=== PATIENT | female | born 1950 | race Caucasian/White ===

== ENCOUNTER → 2016-07-29 | Outpatient (CLI) | payer OTHER | END | disposition home or self-care (01) | LOC: LABWHC1 11:08 | PROVIDERS: ATTEND Orthopaedic Surgery | DX: Z01.812 Encounter for preprocedural laboratory examination (principal) | CPT/HCPCS: 87070 ==

== ENCOUNTER 2016-08-16 08:00 | Inpatient (IN) | payer OTHER ==
[2016-08-04 09:58] VITALS: BMI 34.4
--- NOTE | 2016-08-15 15:20 | HP ---
DATE OF ADMISSION: CHIEF COMPLAINT: Right knee pain. HISTORY OF PRESENT ILLNESS: The patient is a 65-year-old retired female who presents with progressive right knee pain secondary to osteoarthrosis despite extensive conservative measures. She has tried previous injections, medications and bracing. She notes her pain limits her normal function and activities. She is using a cane. PAST MEDICAL HISTORY: Significant for arthritis, depression and hypothyroidism. CURRENT MEDICATIONS: 1. Ambien. 2. Aspirin. 3. Prevacid. 4. Synthroid. 5. Xanax. 6. Cymbalta. 7. Along with ibuprofen. 8. Flexeril. SHE NOTES ALLERGIES TO CIPROFLOXACIN. FAMILY HISTORY: Significant for cancer and liver disease. SOCIAL HISTORY: Negative for current tobacco or alcohol use. Sixteen-point review of systems otherwise reviewed and is noncontributory. On examination, the patient is approximately 5 foot 2, 180 pounds of endomorphic habitus. HEENT exam is nonfocal. Neck is supple. She has painless passive motion of the right hip. Straight leg raise is negative. Active motion of the right knee -8 to 95 degrees of flexion. She is tender about the medial joint line. She has a moderate effusion. Collaterals are stable, Brant's negative, Iliana's is equivocal. She has genu varum alignment. Her distal neurovascular exam appears be intact in the right lower extremity. Previous x-rays of the right knee obtained in the office show severe medial compartment osteoarthrosis. IMPRESSION: 1. Right knee severe medial compartment osteoarthrosis. 2. Increased body mass index. RECOMMENDATIONS: I talked to the patient at length regarding her treatment options. At this point, she opts to proceed with surgery. We will plan to proceed with right total knee arthroplasty. Risks and benefits are discussed at length in layman's terms. The patient underwent preoperative medical evaluation by Dr. Wilbert Cantor.
[~2016-08-16 08:00] MED LIST: ACETAMINOPHEN TAB 500 MG TAB PO ONE; DEXAMETHASONE SOD PHOSPHATE 10 MG/ML 1 ML VIAL IV ONE; HYDROmorphone 1 MG/ML 1 ML SYRINGE IVP PRN; MELOXICAM 7.5 MG TAB PO ONE; MIDAZOLAM 2 MG/2 ML VIAL IV PRN; ONDANSETRON 4 MG/2 ML VIAL IVP ONE; TRANEXAMIC ACID 1,000 MG in SODIUM CHLORIDE 0.9% 100 ML IVPB ONE; ceFAZolin 2 GM in SODIUM CHLORIDE 0.9% 100 ML IVPB ONE; fentaNYL (PF) 50 MCG/ML 20 ML VIAL IVP PRN
[2016-08-16] MEDS: LACTATED RINGERS 1,000 ML IV SCH (14:29)
[2016-08-16] MEDS ORDERED: LIDOCAINE 1% 20 ML VIAL (10MG/ML) FOR IV START INTRADERMA ONE (14:33)
[2016-08-16] MEDS ORDERED: fentaNYL (PF) 50 MCG/ML 2 ML AMP IV ONE ×2 (14:47→14:50)
[2016-08-16] MEDS ORDERED: MIDAZOLAM 2 MG/2 ML VIAL IVP ONE ×2 (14:47→14:50)
[2016-08-16] MEDS ORDERED: MIDAZOLAM 2 MG/2 ML VIAL ONE (15:40)
[2016-08-16] MEDS ORDERED: fentaNYL (PF) 50 MCG/ML 2 ML AMP ONE (15:40)
[2016-08-16] MEDS ORDERED: PROPOFOL 10 MG/ML 20 ML VIAL IV ONE (15:40)
[2016-08-16] MEDS ORDERED: TRANEXAMIC ACID 1,000 MG/10 ML VIAL ONE (15:40)
[2016-08-16] MEDS ORDERED: SODIUM CHLORIDE 0.9% 100 ML BAG ONE (15:40)
[2016-08-16] MEDS ORDERED: ROPIVACAINE 1,100 MG, SODIUM CHLORIDE 0.9% 330 ML MISCELLANE PRN ×2 (15:55)
--- NOTE | 2016-08-16 15:57 | P.ONQ ---
Anesthesiology Proc Note - PNB - Peripheral Nerve Block Performed Right Adductor Canal Infusion Time Out Performed: Yes Indication: Acute Post-Operative Pain, Analgesia Specifically requested for management of pain by : Mayank Cantor Sedation Type: Sedate with meaningful contact maintained Preparation: Sterile Prep Position: Supine Catheter Depth at Skin (cm): 6 Catheter: Indwelling Needle Types: On-Q Needle Size: 100mm (4") Needle Gauge: 20 Technique: Ultrasound Injectate: 0.5% Ropivacaine (see comment for volume) (20 cc) Blood Aspirated: No Pain Paresthesia on Injection Noted: No Resistance on Injection: Normal Events: Uneventful and Well Tolerated
[2016-08-16] MEDS ORDERED: ceFAZolin 3,000 MG in SODIUM CHLORIDE 0.9% IRRIGATIO 3,000 ML IRRIGATION ONE (16:18)
[2016-08-16] MEDS ORDERED: ROPIVACAINE 246.25 MG, EPINEPHrine 0.5 MG, KETOROLAC 30 MG, cloNIDine HCL/PF 80 MCG, WA... MISCELLANE ONE ×5 (16:32)
[2016-08-16] MEDS ORDERED: HYDROcodone/APAP 7.5-325MG 1 EACH TAB PO PRN ×2 (17:25)
[2016-08-16] MEDS ORDERED: HYDROmorphone 1 MG/ML 1 ML SYRINGE IVP PRN (17:25)
[2016-08-16] MEDS ORDERED: MAGNESIUM HYDROXIDE 2,400 MG/10 ML CUP PO PRN (17:25)
[2016-08-16] MEDS ORDERED: ONDANSETRON 4 MG/2 ML VIAL IVP PRN (17:25)
[2016-08-16] MEDS ORDERED: NALOXONE 0.4 MG/ML 1 ML VIAL IV PRN (17:25)
[2016-08-16] MEDS ORDERED: LACTATED RINGERS 1,000 ML IV ONE (17:48)
--- NOTE | 2016-08-16 17:59 | P.OP ---
Date of Procedure: 08/16/16 Preoperative Diagnosis: Right knee severe tricompartmental osteoarthrosis Postoperative Diagnosis: Same Procedure(s) Performed: Right total knee arthroplasty-cemented/cruciate retaining Implants: [employer] Oxinium size 5 narrow cemented femoral component, size 4 cemented tibial component, 9 mm articular surface, 29 mm cemented patellar component. This is a cruciate retaining implant. Anesthesia: regional, local, spinal Surgeon: Mayank Cantor Log Hauler #1: Fabián Calixto Estimated Blood Loss (ml): 50 Pathology: other (Bone fragments) Condition: stable Disposition: PACU Indications for Procedure: The patient is a 65-year-old female who presents with progressive right knee pain secondary to osteoarthrosis despite conservative measures. A discussion of the risks and benefits of operative intervention versus continued conservative measures was made with the patient. She opted to proceed with surgery. Operative risks to include infection, neurovascular injury, development of blood clots, possible component loosening, possible component failure need for subsequent procedures was discussed. Informed consent was obtained. Operative Findings: Severe tricompartmental osteoarthrosis Description of Procedure: The patient was brought to the operating room, and after induction of spinal anesthesia the right lower extremity was prepped and draped in normal fashion. The tourniquet was inflated to 270 mmHg. A longitudinal incision extending 3 finger breaths above the superior pole of patella extending to the medial aspect the tibial tubercle was then made. The skin and subcutaneous tissues were divided sharply. Electrocautery was used for hemostasis. A medial parapatellar arthrotomy is performed. The medial soft tissues to include the superficial and deep portions of the medial collateral ligament as well as the medial hamstring tendons were elevated subperiosteally. The proximal medial tibial osteophytes were carefully removed. The patella was everted. A portion of the retropatellar fat pad was excised sharply. The anterior cruciate ligament was sacrificed. A starting hole was made in the distal femur 1 cm anterior to the posterior cruciate ligament origin. An intramedullary guide was gently inserted planning on 5 valgus distal cut with 9.5 mm distal resection. The cutting block was pinned in place. The distal cut was then made. The posterior referencing sizing guide was utilized. I felt size 5 narrow was most appropriate. The cutting block was pinned in place. The anterior, posterior, and chamfer cuts were then made. The bone fragments were removed. The trial size 5 femoral component was placed and was fully seated. There was good anterior to posterior and medial to lateral fit. The distal peg holes were drilled. Attention was then paid towards preparing the proximal tibia. An extra medullary guide was utilized in line with the tibial shaft and second metatarsal distally. A 3 posterior slope cutting block was utilized. I planned on 2 mm resection from the medial compartment. The cutting block was pinned in placed and the proximal tibial cut was made. The bone was removed in one fragment. The tibia sized most appropriately at size 4. The remnants of the medial and lateral menisci were excised at the capsular junction with electrocautery. The trial femoral and tibial components were placed along with a 9 mm articular surface. I was able to obtain full flexion and extension with good stability with varus and valgus stress. After several flexion and extension cycles, the tibial rotation was marked with electrocautery in line with the medial one third of the tibial tubercle. Attention was then paid towards preparing the patella. A patella reamer was utilized taking senna 14 mm of bone stock. A good flush cut was made. The patella sized most appropriately 29 mm. The peg holes were drilled. The trial components placed. The knee was taken through range of motion. I had good patellofemoral tracking with no hands technique. The trial components were then removed. The tibia was prepared in the appropriate rotation with appropriate drill and keel punch. Several addition drill holes were made along the proximal medial tibia to facilitate cement interdigitation. The flexion and extension gaps were checked and felt to be symmetric. The posterior soft tissues were injected with ropivacaine. The posterior osteophytes were removed carefully with a curved osteotome. The bony surfaces were prepared with pulsatile lavage and dried. The tibial component was then cemented in placed and was fully seated. Excess cement was removed. The femoral component was cemented in placed and was fully seated. Excess cement was removed. The trial 9 mm articular surface was placed in the knee was put in full extension. The patella component cemented in placed and was fully seated. After the cement had sufficiently hardened, the knee was again taken through range of motion. Again I was able to obtain full flexion and extension with good stability with varus and valgus stress. The trial articular surface was removed and the final 9 mm articular surface was placed. This was fully seated. Care was taken to avoid any soft tissue interposition. Pulsatile lavage was again utilized. The medial parapatellar arthrotomy was closed with #2 Ethibond suture. The tourniquet was deflated with approximately 1 hour total tourniquet time. Final hemostasis was obtained with electrocautery and the second dose of IV TXA was given. The subcutaneous tissues were reapproximated interrupted 2-0 Vicryl sutures. The skin was reapproximated with 3-0 subcuticular strata fix suture. Skin tape and adhesive was applied. A sterile dressing was applied. The patient was awoken from sedation and transferred to recovery room in good condition. Blood loss was estimated at 50 mL. No complications were incurred. Sponge and needle counts were correct at the end the case.
--- NOTE | 2016-08-16 18:21 | XR ---
Limited right knee HISTORY: Postop 2 views of the right knee Patient is status post right knee arthroplasty. There is an indwelling drain. Alignment is maintained . Lucency compatible with postop change within the soft tissues. IMPRESSION: Orthopedic follow-up
[2016-08-16] MEDS ORDERED: PANTOPRAZOLE 40 MG TABLET PO PRN (19:41)
[2016-08-16] MEDS ORDERED: SUMAtriptan SUCCINATE 50 MG TAB PO PRN (19:41)
[2016-08-16] MEDS: SENNOSIDES-DOCUSATE SODIUM 1 EACH TAB PO SCH (20:23)
[2016-08-16] MEDS: HYDROmorphone 1 MG/ML 1 ML SYRINGE IVP PRN ×2 (20:31→23:03)
[2016-08-16] MEDS: ALPRAZolam 0.5 MG TAB PO SCH (21:13)
[2016-08-16] MEDS: ceFAZolin 2 GM in SODIUM CHLORIDE 0.9% 100 ML IVPB SCH (23:03)
[2016-08-16] MEDS: ZOLPIDEM 10 MG TAB PO PRN (23:30)
[2016-08-17] MEDS: LACTATED RINGERS 1,000 ML IV SCH ×2 (00:14→19:27)
[2016-08-17] MEDS: HYDROmorphone 1 MG/ML 1 ML SYRINGE IVP PRN ×5 (01:57→20:41)
[2016-08-17] MEDS: LEVOTHYROXINE 75 MCG TAB PO SCH (05:03)
[2016-08-17 07:15] LABS: Basophils % (A) 0 %; CH 26.5; Eosinophils % (A) 0 %; HCT 33.6 % (34.0-46.0); HDW 2.93; HGB 10.5 gm/dL (11.4-16.0); Hypochromasia Moderate; Luc # (Auto) 0.16; Luc % (Auto) 1; Lymphocytes # (A) 0.6 k/uL (1.0-4.8); Lymphocytes % (A) 5 %; MCH 26.7 pg (25.0-35.0); MCHC 31.2 g/dL (31.0-37.0); MCV 85.7 fL (80.0-100.0); Mean Platelet Volume 7.2; Monocytes # (A) 0.5 k/uL (0-1.0); Monocytes % (A) 4 %; Neutrophils # (A) 10.5 k/uL (1.3-7.7); Neutrophils % (A) 89 %; RBC 3.92 m/uL (3.80-5.40); RDW 13.4 % (11.5-15.5); WBC 11.7 k/uL (3.8-10.6); WBC (Perox) 12.83
[2016-08-17] MEDS: amLODIPine 2.5 MG TAB PO SCH (09:00)
[2016-08-17] MEDS: ALPRAZolam 0.5 MG TAB PO SCH ×2 (09:00→16:24)
[2016-08-17] MEDS: FAMOTIDINE 20 MG TAB PO SCH (09:00)
[2016-08-17] MEDS: RIVAROXABAN 10 MG TAB PO SCH (09:00)
[2016-08-17] MEDS: ceFAZolin 2 GM in SODIUM CHLORIDE 0.9% 100 ML IVPB SCH (09:00)
--- NOTE | 2016-08-17 09:00 | P.PN ---
Progress Note - Text 0756. Anesthesia POD 1. Patient is status post right TKR under spinal anesthesia with a right adductor canal catheter placed for postoperative pain control. Currently the catheter is running at 10 mL per hour with a solution of 0.2% ropivacaine. Anterior pain relief is excellent with some posterior lateral discomfort. Dressing is intact clean and dry.
[2016-08-17] MEDS ORDERED: oxyCODONE-APAP 5-325MG 1 EACH TAB PO PRN (11:00)
--- NOTE | 2016-08-17 12:23 | P.PN ---
Subjective Principal diagnosis: Status post right total knee arthroplasty Patient seen today resting in her hospital chair, she appears to be no acute distress. Pain is well-controlled. She ambulated minimally at this time. Denies headaches, lightheadedness, chest pain, shortness of breath. Objective - Vital Signs Vital signs: Vital Signs Temp 97.8 F 08/17/16 07:41 Pulse 78 08/17/16 07:41 Resp 17 08/17/16 07:41 BP 111/71 08/17/16 07:41 Pulse Ox 96 08/17/16 07:41 Intake & Output 08/16/16 08/17/16 08/17/16 18:59 06:59 18:59 Intake Total 1251 550 480 Output Total 100 570 150 Balance 1151 -20 330 Weight 85.275 kg Intake: IV 1251 550 Lactated Ringers 1,000 ml 550 @ 50 mls/hr IV .Q20H ZAY Rx#:[id number] Oral 480 Output: Drainage 70 Right Knee 70 Urine 50 500 150 Uretheral (Rivera) 500 150 Estimated Blood Loss 50 Other: Voiding Method Indwelling Catheter - Exam Heart lotions and: Incision is clean, dry and intact, tape is in good position. Minimal ecchymosis present on the medial and lateral aspects of the incision. Minimal swelling around the knee. Calf is soft, no tenderness with palpation. Plantar flexion, dorsiflexion, EHL, FHL are intact, sensory exam light touch septic extremities intact, cap refills less than 3 seconds. - Labs CBC & Chem 7: 08/17/16 06:48 Labs: Abnormal Lab Results - Last 24 Hours (Table) 08/17/16 Range/Units 06:48 WBC 11.7 H (3.8-10.6) k/uL Hgb 10.5 L (11.4-16.0) gm/dL Hct 33.6 L (34.0-46.0) % Neutrophils # 10.5 H (1.3-7.7) k/uL Lymphocytes # 0.6 L (1.0-4.8) k/uL Assessment and Plan Plan: Assessment: 1. Postop day #1 status post right total knee arthroplasty Plan: 1. Pain control, did change oral medications 2. Icing and elevating/daily dressing changes 3. Encourage incentive spirometer 4. Continue with therapy 5. GI and DVT prophylaxis, continue Xarelto 6. Medical recommendations 7. Discharge planning: Patient will likely be discharged home tomorrow Time with Patient: Less than 30
--- NOTE | 2016-08-17 12:24 | P.DS ---
Providers Date of admission: 08/16/16 13:47 Expected date of discharge: 08/19/16 Attending physician: Mayank Cantor Consults: 08/16/16 17:25 Consult Physician Routine Consulting Provider: Samuel Puri Consult Reason/Comments: medical management Do you want consulting provider notified?: Yes Primary care physician: Wilbert Cantor [facility] Course: Date of admission: 08/16/2016 Date of discharge: 08/19/2016 Admission diagnosis: Status post right total knee arthroplasty Discharge diagnosis: Same Attending physician: Dr. Cantor Surgical procedures: Right total knee arthroplasty Brief history: Patient is a 65-year-old female with a history of aggressive primary right knee osteoarthritis. At this point patient has failed conservative treatment measures and has opted to proceed with a elective right total knee arthroplasty. Hospital course: Details of patient's surgery can be found in operative report. Patient tolerated the procedure well and was subsequently transported to orthopedic floor. Patient's orthopeidc and medical care was provided daily. Patient had daily laboratory tests performed for evaluation of overall blood counts. Patient had daily physical therapy to include strengthening range of motion as well as education with walker ambulation. Patient had daily CPM usage as part of their physical therapy program. Patient was treated with Xarelto for their postoperative DVT prophylaxis during their inpatient stay. Patient was noted to have a relatively uneventful postoperative course. Patient reported satisfactory pain control with oral pain medications by postoperative day 1. Patient showed satisfactory progress with physical therapy. Patient moved steadily through the program and had no difficulty meeting the goals by postoperative day 3. Given patient's otherwise satisfactory course and having met physical therapy goals, plan is to discharge patient home on postoperative day 3. Discharge condition/disposition: Patient will be discharged home in stable condition. Discharge medications: Instructions are given on resumption of patient's normal daily medications per primary care recommendation, in addition patient will be prescribed Percocet 5 mg/325 mg, tramadol 50 mg, Vistaril 25 mg, Colace 100 mg, Xarelto 10 mg. Discharge instructions: 1. Wound care and infection precautions, keep incision dry and covered while showering, no lotions, creams, moisturizers. No soaking, tubs, pools, hottubs. Do not scrub over the incision. 2. Weight-bear as tolerated with walker / cane until follow-up. 3. Ice and elevate when necessary. Do not exceed 20 minutes per hour with ice pack. 4. Utilize compression sleeve until seen at first follow up appointment. 5. Visiting nursing care. 6. Home physical therapy including home CPM. 7. Pain meds and anticoagulants per prescription. 8. Pain medication has potential to cause constipation. Increase oral fluid and fiber intake. Contact primary care provider if you have not had a bowel movement within 48 hours after discharge 9. No anti-inflammatory medication until discussed at first post operative visit, this including Motrin, Aleve, Mobic, Diclofenac 10. Follow up in office at 2 weeks postop with Reese Calixto PA-C 11. Follow up with your primary care doctor 7-10 days after discharge. 12. Contact [facility] with any questions, . Procedures: Right total knee arthroplasty Patient Condition at Discharge: Good Plan - Discharge Summary New Discharge Prescriptions: Docusate [Colace] 100 mg PO DAILY #30 capsule Rivaroxaban [Xarelto] 10 mg PO DAILY #12 tab hydrOXYzine PAMOATE [Vistaril] 25 mg PO Q6HR #40 capsule oxyCODONE-APAP 5-325MG [Percocet 5-325 mg] 1 - 2 tab PO Q6HR PRN #60 tab PRN Reason: Pain traMADol HCl [Ultram] 50 mg PO Q6H PRN #40 tab PRN Reason: Pain Discharge Medication List Omeprazole [PriLOSEC] 40 mg PO QAM PRN 01/17/14 [History] Naratriptan HCl [Amerge] 2.5 mg PO DAILY PRN 01/18/14 [History] ALPRAZolam [Xanax] 0.5 mg PO TID 08/04/16 [History] Acetaminophen-Codeine 300-30mg [Tylenol #3] 2 tab PO Q6H PRN 08/04/16 [History] Ibuprofen [Motrin] 200 mg PO TID PRN 08/04/16 [History] Sulfamethox-Tmp 800-160Mg [Bactrim DS 800-160 mg] 1 tab PO Q12HR 08/04/16 [ History] Zolpidem [Ambien] 10 mg PO HS PRN 08/04/16 [History] amLODIPine [Norvasc] 2.5 mg PO QAM 08/04/16 [History] Levothyroxine Sodium [Synthroid] 150 mcg PO QAM 08/16/16 [History] Rivaroxaban [Xarelto] 10 mg PO DAILY #12 tab 08/16/16 [Rx] Docusate [Colace] 100 mg PO DAILY #30 capsule 08/19/16 [Rx] hydrOXYzine PAMOATE [Vistaril] 25 mg PO Q6HR #40 capsule 08/19/16 [Rx] oxyCODONE-APAP 5-325MG [Percocet 5-325 mg] 1 - 2 tab PO Q6HR PRN #60 tab [Rx] traMADol HCl [Ultram] 50 mg PO Q6H PRN #40 tab 08/19/16 [Rx] Follow up Appointment(s)/Referral(s): [facility], [NON-STAFF] - 1 Week Fabián Calixto PAC [PHYSICIAN BUNDLE WRAPPER] - 09/02/16 2:30 pm Activity/Diet/Wound Care/Special Instructions: Orthopedic Discharge Instructions: 1. Wound care and infection precautions, [keep incision dry and covered while showering], no lotions, creams, moisturizers. No soaking, pools, hot tubs. Do not scrub over incision. 2. Weight-bear [as tolerated] with walker / cane until follow-up. 3. Ice and elevate when necessary. Do not exceed 20 minutes per hour with ice pack. 4. Utilize compression sleeve until seen at first follow up appointment. 5. Visiting nursing care. 6. Home physical therapy [including home CPM]. 7. Pain meds and anticoagulants per prescription. 8. Pain medication has potential to cause constipation. Increase oral fluid and fiber intake. Contact primary care provider if you have not had a bowel movement within 48 hours after discharge. 9. No anti-inflammatory medication until discussed at first post operative visit, this including Motrin, Aleve, Mobic, Diclofenac. 10. Follow up in office at 2 weeks postop with Reese Calixto PA-C 11. Follow up with your primary care doctor 7-10 days after discharge. 12. Contact [facility] with any questions, . Discharge Disposition: HOME WITH HOME HEALTH SERVICES
--- NOTE | 2016-08-17 14:22 | CONS ---
DATE OF CONSULTATION: 08/16/2016 REASON FOR CONSULTATION: Medical management requested by Dr. Cantor. CONSULTATION: This is a very pleasant 65-year-old patient with chronic stable medical conditions include GERD, hypothyroid, hiatal hernia, anxiety. Patient has undergone a right total knee arthroplasty. Post procedure pain is controlled. No nausea, vomiting, no chest pain. Denies any cardiac history. Sitting on her bed, comfortable. REVIEW OF SYSTEMS: CONSTITUTIONAL: None. HEENT: None. RESPIRATORY: None. CARDIOVASCULAR: None. GASTROINTESTINAL: Heartburn. GENITOURINARY: None. MUSCULOSKELETAL: Pain in the joints. DERMATOLOGICAL: None. HEMATOLOGICAL: None. LYMPHATIC: None. PSYCHIATRY: Anxiety. NEUROLOGICAL: None. Past history of GERD, osteoarthritis, hypothyroid, hiatal hernia, anxiety. PAST SURGICAL HISTORY: Back surgery, cholecystectomy, joint replacement, tonsillectomy, tubal ligation, left knee replacement, ORIF right. Psych history of anxiety. SOCIAL HISTORY: No smoking, retired from post office. . Family history of dementia. HOME MEDICATIONS: 1. Norvasc 2.5 p.o. daily. 2. Ambien 10 mg p.o. q.h.s. p.r.n. 3. Bactrim just coming to course for UTI. 4. Prilosec 40 mg p.o. daily. 5. Amerge 2.5 p.o. daily p.r.n. 6. Synthroid 150 mcg p.o. daily. 7. Motrin 200 mg p.o. t.i.d. p.r.n. 8. Tylenol No. 3 one to two tablets p.o. q.6 p.r.n. 9. Xanax 0.5 p.o. t.i.d. 10. Xarelto 10 mg p.o. daily. Allergies to CIPRO and MILK. On examination, temperature 97.8, pulse 78, respirations 17, blood pressure 111/71, pulse ox 96% on room air. GENERAL APPEARANCE: Well built, BMI of 34. Sitting up, comfortable. EYES: Pupils equal, conjunctivae normal. HEENT: Oral cavity normal. NECK: JVD not raised. Mass not palpable. Respiratory effort normal. Lungs are clear. CARDIOVASCULAR: First and second sounds normal. No edema. ABDOMEN: Soft, nontender. Liver and spleen not palpable. LYMPHATIC: No lymph node palpable in neck or axillae. PSYCHIATRY: Alert and oriented x3. Mood and affect normal. NEUROLOGICAL: Pupils equal. Cranial nerves grossly intact. Power and sensation grossly intact. EXTREMITIES: Leg in a dressing. INVESTIGATIONS: White count 11.7, hemoglobin 10.5. ASSESSMENT: 1. Right total knee arthroplasty. 2. Hypothyroidism. 3. Hiatal hernia. 4. Primary osteoarthritis or multiple joints. 5. Anxiety, not otherwise specified. PLAN: Home medications are resumed, DVT prophylaxis and pain per Dr. Cantor. Care was discussed with the patient. Patient should follow up with Dr. Cantor upon discharge. Thank you, Dr. Cantor.
[2016-08-17] MEDS: oxyCODONE-APAP 5-325MG 1 EACH TAB PO PRN (18:07)
[2016-08-17] MEDS: SENNOSIDES-DOCUSATE SODIUM 1 EACH TAB PO SCH (19:29)
[2016-08-17] MEDS: ZOLPIDEM 10 MG TAB PO PRN (21:17)
[2016-08-18] MEDS: ALPRAZolam 0.5 MG TAB PO SCH ×4 (00:14→21:50)
[2016-08-18] MEDS: oxyCODONE-APAP 5-325MG 1 EACH TAB PO PRN ×5 (01:15→22:44)
[2016-08-18] MEDS: HYDROmorphone 1 MG/ML 1 ML SYRINGE IVP PRN (03:32)
[2016-08-18] MEDS: LEVOTHYROXINE 75 MCG TAB PO SCH (06:19)
--- NOTE | 2016-08-18 08:20 | P.PN ---
Progress Note - Text The patient is status post right adductor canal catheter placement. The catheter was placed for postoperative pain control, status post total right arthroplasty. Ropivacaine 0.2% is infusing at 12 mLs per hour. The patient has no complaints of right lower extremity numbness or weakness. Patient's VAS score is[5 ]-10. Assessment: The adductor canal catheter is providing moderate relief, the patient has been provided supplemental pain medicine. Plan : continue infusion and adjust it as needed.
--- NOTE | 2016-08-18 08:23 | P.PN ---
Subjective Principal diagnosis: Status post right total knee arthroplasty Patient seen today resting in her hospital chair, she appears to be no acute distress. Patient has noted some increasing pain throughout the knee this morning. She also has some nausea early this morning when she first attempted to get up. Denies headaches, lightheadedness, chest pain, shortness of breath. Objective - Vital Signs Vital signs: Vital Signs Temp 97 F L 08/18/16 07:00 Pulse 90 08/18/16 07:00 Resp 16 08/18/16 07:00 BP 124/77 08/18/16 07:00 Pulse Ox 94 L 08/18/16 07:00 Intake & Output 08/17/16 08/18/16 08/18/16 18:59 06:59 18:59 Intake Total 1870 Output Total 150 Balance 1720 Intake: IV 50 Lactated Ringers 1,000 ml 50 @ 50 mls/hr IV .Q20H ZAY Rx#:[id number] Oral 1820 Output: Urine 150 Uretheral (Rivera) 150 Other: Voiding Method Indwelling Catheter Toilet # Voids 1 - Exam Heart lotions and: Incision is clean, dry and intact, tape is in good position. Minimal ecchymosis present on the medial and lateral aspects of the incision. Minimal swelling around the knee. Calf is soft, no tenderness with palpation. Plantar flexion, dorsiflexion, EHL, FHL are intact, sensory exam light touch septic extremities intact, cap refills less than 3 seconds. - Labs CBC & Chem 7: 08/17/16 06:48 Assessment and Plan Plan: Assessment: 1. Postop day #2 status post right total knee arthroplasty Plan: 1. Pain control, continue on Percocet 5 mg/325 mg, continue utilize tramadol as needed. We'll also and Vistaril 25 mg every 6 hours 2. Icing and elevating/daily dressing changes 3. Encourage incentive spirometer 4. Continue with therapy 5. GI and DVT prophylaxis, continue Xarelto 6. Medical recommendations 7. Discharge planning: Discharge pending pain control Time with Patient: Less than 30
[2016-08-18] MEDS: RIVAROXABAN 10 MG TAB PO SCH (08:53)
[2016-08-18] MEDS: FAMOTIDINE 20 MG TAB PO SCH (08:54)
[2016-08-18] MEDS: amLODIPine 2.5 MG TAB PO SCH (08:54)
[2016-08-18] MEDS: hydrOXYzine PAMOATE 25 MG CAP PO PRN ×3 (11:16→22:44)
[2016-08-18] MEDS: traMADol 50 MG TAB PO PRN ×2 (15:26→21:49)
[2016-08-18] MEDS: LACTATED RINGERS 1,000 ML IV SCH (17:57)
[2016-08-18 18:31] VITALS: RESP 16
--- NOTE | 2016-08-18 19:29 | CONS ---
DATE OF CONSULTATION: 08/17/2016 ADDENDUM TO CONSULTATION CORRECTION: My consultation on this patient dictated on 08/17/16 at 1304, transcribed on 08/17/16 at 1421 hours. The correct date of consultation is 08/17/16 and not 08/16/16.
--- NOTE | 2016-08-18 19:36 | PN ---
DATE OF SERVICE: 08/18/2016 PRESENTING COMPLAINT: Knee surgery. INTERVAL HISTORY: This patient is status post right knee surgery; having some pain at the operative site. She had nausea earlier from the pain medication. Did work with Physical Therapy. Did tolerate a bit of breakfast. I saw the patient earlier today. Review of systems done for constitutional, cardiovascular, GI, pulmonary; relevant findings as above. Current medications are reviewed. On examination, temperature 97, pulse 90, respiration 16, blood pressure 120/77, pulse ox 94% on room air. GENERAL APPEARANCE: Sitting up in bed, comfortable. EYES: Pupils equal. Conjunctivae normal. NECK: JVD not raised. Mass not palpable. RESPIRATORY: Effort normal. Lungs are clear. CARDIOVASCULAR: First and second sounds normal. No edema. ABDOMEN: Soft, nontender. Liver and spleen not palpable. PSYCHIATRY: Alert and oriented x3. Mood and affect normal. INVESTIGATIONS: No blood work from today. ASSESSMENT: 1. Right total knee arthroplasty. 2. Nausea as a side effect of pain medication. 3. Hypothyroidism. 4. Hiatal hernia. 5. Primary osteoarthritis of multiple joints. 6. Anxiety not otherwise specified. PLAN: Care was discussed with the patient. Did discuss the balance between nausea and pain medications. She will try to work it through. Thank you, Dr. Cantor.
[2016-08-18] MEDS: SENNOSIDES-DOCUSATE SODIUM 1 EACH TAB PO SCH (21:49)
[2016-08-18] MEDS: ZOLPIDEM 10 MG TAB PO PRN (21:49)
[2016-08-19] MEDS: hydrOXYzine PAMOATE 25 MG CAP PO PRN (03:57)
[2016-08-19] MEDS: oxyCODONE-APAP 5-325MG 1 EACH TAB PO PRN ×2 (03:57→10:10)
[2016-08-19 04:27] VITALS: PULSE 93
[2016-08-19] MEDS: LEVOTHYROXINE 75 MCG TAB PO SCH (05:43)
[2016-08-19 07:08] LABS: Basophils % (A) 0 %; CH 26.3; CHCM 30.6; Eosinophils # (A) 0.1 k/uL (0-0.7); Eosinophils % (A) 1 %; HCT 31.5 % (34.0-46.0); HDW 2.84; HGB 9.8 gm/dL (11.4-16.0); Hypochromasia Moderate; Luc # (Auto) 0.33; Luc % (Auto) 4; Lymphocytes # (A) 1.8 k/uL (1.0-4.8); Lymphocytes % (A) 24 %; MCH 26.7 pg (25.0-35.0); Mean Platelet Volume 6.8; Monocytes # (A) 0.4 k/uL (0-1.0); Monocytes % (A) 5 %; Neutrophils % (A) 65 %; RBC 3.67 m/uL (3.80-5.40); RDW 13.5 % (11.5-15.5); WBC 7.6 k/uL (3.8-10.6); WBC (Perox) 8.31
[2016-08-19] MEDS: amLODIPine 2.5 MG TAB PO SCH (10:08)
[2016-08-19] MEDS: ALPRAZolam 0.5 MG TAB PO SCH (10:10)
[2016-08-19] MEDS: FAMOTIDINE 20 MG TAB PO SCH (10:11)
[2016-08-19] MEDS: RIVAROXABAN 10 MG TAB PO SCH (10:11)
--- NOTE | 2016-08-19 11:43 | P.PN ---
Subjective Principal diagnosis: Status post right total knee arthroplasty Patient seen today resting in her hospital chair, she appears to be no acute distress. Pain is well controlled at this time. Denies headaches, lightheadedness, chest pain, shortness of breath. Objective - Vital Signs Vital signs: Vital Signs Temp 98.0 F 08/19/16 03:44 Pulse 83 08/19/16 03:44 Resp 16 08/18/16 20:00 BP 115/65 08/19/16 03:44 Pulse Ox 95 08/18/16 18:31 Intake & Output 08/18/16 08/19/16 08/19/16 18:59 06:59 18:59 Intake Total 500 540 Output Total 100 Balance 400 540 Weight 85.275 kg Intake: Oral 500 540 Output: Urine 100 Other: Voiding Method Toilet Toilet # Voids 1 2 - Exam Heart lotions and: Incision is clean, dry and intact, tape is in good position. Minimal ecchymosis present on the medial and lateral aspects of the incision. Minimal swelling around the knee. Calf is soft, no tenderness with palpation. Plantar flexion, dorsiflexion, EHL, FHL are intact, sensory exam light touch septic extremities intact, cap refills less than 3 seconds. - Labs CBC & Chem 7: 08/19/16 06:42 Labs: Abnormal Lab Results - Last 24 Hours (Table) 08/19/16 Range/Units 06:42 RBC 3.67 L (3.80-5.40) m/uL Hgb 9.8 L (11.4-16.0) gm/dL Hct 31.5 L (34.0-46.0) % Assessment and Plan Plan: Assessment: 1. Postop day #3 status post right total knee arthroplasty Plan: 1. Pain control, will be discharged home on percocet 5/325 and tramadol 50 2. Icing and elevating/daily dressing changes 3. Encourage incentive spirometer 4. Continue with therapy 5. GI and DVT prophylaxis, discharge home on xarelto 10 6. Medical recommendations 7. Discharge planning: discharge home today Time with Patient: Less than 30
[2016-08-19] MEDS: LACTATED RINGERS 1,000 ML IV SCH (13:57)
[2016-08-19] MEDS: traMADol 50 MG TAB PO PRN (14:00)
[2016-08-19 14:55] VITALS: BP 98/59; TEMP 97.8
--- NOTE | 2016-08-19 20:55 | PN ---
DATE OF SERVICE: 08/19/2016 PRESENTING COMPLAINT: Knee surgery. INTERVAL HISTORY: Patient is status post right knee surgery. Seen by me earlier today. Doing well. Pain is better. Working with Physical Therapy. Overall feels better; keen to go home. Review of systems done for constitutional, cardiovascular, GI, pulmonary; relevant findings as above. Current medications are reviewed. On examination, temperature 97.8, pulse 93, respiration 16, blood pressure 90/59, pulse ox 94% on room air. GENERAL APPEARANCE: Sitting up in bed, comfortable. EYES: Pupils equal. Conjunctivae normal. NECK: JVD not raised. Mass not palpable. RESPIRATORY: Effort normal. Lungs clear. CARDIOVASCULAR: First and second sounds normal. No edema. ABDOMEN: Soft, non-tender. Liver and spleen not palpable. PSYCHIATRY: Alert and oriented. Mood and affect normal. INVESTIGATIONS: Hemoglobin 9.8. ASSESSMENT: 1. Right total knee arthroplasty. 2. Nausea as a side effect of pain medication, improved. 3. Hypothyroidism, chronic. 4. Hiatal hernia, chronic. 5. Primary osteoarthritis in multiple joints, bilateral. 6. Anxiety not otherwise specified. PLAN: Patient is doing well. Continue current medication and treatment plan. If discharged, should follow with her family doctor. Thank you, Dr. Cantor.
== END 2016-08-19 15:23 | disposition home health service (06) | DRG 470 ==
LOC: 2ORMAIN 13:47 → 3SUR 17:38
PROVIDERS: ADMIT Orthopaedic Surgery; ATTEND Orthopaedic Surgery
PROC: 0SRC0J9 Replacement of Right Knee Joint with Synthetic Substitute, Cemented, Open Approach (ICD-10-PCS; principal; 2016-08-16 15:40)
DX: M17.11 Unilateral primary osteoarthritis, right knee (principal); I10 Essential (primary) hypertension; F32.9 Major depressive disorder, single episode, unspecified; E03.9 Hypothyroidism, unspecified; F41.9 Anxiety disorder, unspecified; K21.9 Gastro-esophageal reflux disease without esophagitis; K44.9 Diaphragmatic hernia without obstruction or gangrene; M21.169 Varus deformity, not elsewhere classified, unspecified knee; R11.0 Nausea; T50.995A Adverse effect of other drugs, medicaments and biological substances, initial encounter; G43.909 Migraine, unspecified, not intractable, without status migrainosus; G47.30 Sleep apnea, unspecified; E66.9 Obesity, unspecified; M75.100 Unspecified rotator cuff tear or rupture of unspecified shoulder, not specified as traumatic; G47.00 Insomnia, unspecified; L65.9 Nonscarring hair loss, unspecified; Z96.652 Presence of left artificial knee joint; Z79.01 Long term (current) use of anticoagulants; Z79.82 Long term (current) use of aspirin; Z79.899 Other long term (current) drug therapy; Z88.1 Allergy status to other antibiotic agents; Z68.34 Body mass index [BMI] 34.0-34.9, adult
CPT/HCPCS: 85025; 88300

== ENCOUNTER → 2017-08-23 | Day surgery (SDC) | payer OTHER ==
[2017-08-22 10:37] VITALS: BMI 36.2
[~2017-08-23] MED LIST changes: -ACETAMINOPHEN TAB 500 MG TAB PO ONE; -DEXAMETHASONE SOD PHOSPHATE 10 MG/ML 1 ML VIAL IV ONE; -HYDROmorphone 1 MG/ML 1 ML SYRINGE IVP PRN; +LACTATED RINGERS 1,000 ML IV SCH; +LIDOCAINE 1% 20 ML VIAL (10MG/ML) FOR IV START INTRADERMA PRN; +LIDOCAINE 1% INJ 10MG/ML (20 ML MDV) ONE; -MELOXICAM 7.5 MG TAB PO ONE; -MIDAZOLAM 2 MG/2 ML VIAL IV PRN; +MIDAZOLAM 2 MG/2 ML VIAL ONE; -ONDANSETRON 4 MG/2 ML VIAL IVP ONE; +PROPOFOL 10 MG/ML 20 ML VIAL IV ONE; -TRANEXAMIC ACID 1,000 MG in SODIUM CHLORIDE 0.9% 100 ML IVPB ONE; -ceFAZolin 2 GM in SODIUM CHLORIDE 0.9% 100 ML IVPB ONE; -fentaNYL (PF) 50 MCG/ML 20 ML VIAL IVP PRN
[2017-08-23 11:07] VITALS: TEMP 97.9
--- NOTE | 2017-08-23 11:48 | P.PCN ---
Date of Procedure: 08/23/17 Procedure(s) Performed: Brief history: Patient is a pleasant 66-year-old white female, scheduled for an elective upper endoscopy as well as colonoscopy as a part of evaluation of iron deficiency anemia. She does have long-standing history of GERD and has been on Zantac 150 mg twice daily. Recently had an episode of acute sigmoid diverticulitis and was treated with antibiotics. She was turned complains of a diminutive left low quadrant abdominal pain and change in bowel habits. Denies any rectal bleeding. Procedure performed: Esophagogastroduodenoscopy with biopsy Colonoscopy with biopsy Preoperative diagnosis: Iron deficiency anemia GERD/lower abdominal pain and change in bowel habits Anesthesia: MAC Procedure: After informed consent was obtained from the patient was brought into the endoscopy unit and IV sedation was administered by anesthesia under continuous monitoring. Initially upper endoscopy was done. The Olympus GF 160 video endoscope was inserted inserted into the mouth and esophagus intubated without any difficulty and was gradually advanced into the stomach and duodenum and carefully examined. The bulb and second part of the duodenum appeared normal. The scope was then withdrawn into the stomach adequately insufflated with air and upon careful examination the antrum had mild gastritis and biopsies were done from this area. The body, cardia and fundus appeared normal. The scope was then withdrawn into the esophagus and moderate size hiatal hernia noted. There were Ayaz erosions noted at the diaphragmatic impression was one superficial ulceration measuring 5-6 mm with no active bleeding. The GE junction was located at 34 cm to the incisors. It appeared regular with no erythema erosions or ulcerations. Rest of the esophagus appeared normal. Patient tolerated the procedure well. At this time the patient continued to remain sedation. Initial digital rectal examination was normal. Olympus CF 160 video colonoscope was then inserted into the rectum and gradually advanced to the cecum without any difficulty. Careful examination was performed as the scope was gradually being withdrawn. The prep was excellent. The cecum, ascending colon, transverse colon, descending colon, sigmoid colon and rectum appeared normal. random biopsies were done from ascending and descending colon to rule out microscopic/ collagenous colitis. Retroflexion was performed in the rectum and no lesions were noted. Patient tolerated the procedure well. Impression: 1. Upper endoscopy revealed Ayaz erosions/ulcerations and mild antral gastritis. Moderate size hiatal hernia 2. Colonoscopy revealed scattered sigmoid diverticulosis but no evidence of colitis or colorectal neoplasia. Recommendations: Findings of this examination were discussed with the patient as well as her family. She was advised to follow with the biopsy results. She will increase the Zantac to 300 mg twice daily. She can have a repeat screening colonoscopy in 10 years.
[2017-08-23 12:18] VITALS: BP 138/72; PULSE 69; RESP 16
== END ==
LOC: ORWHC2ENDO 10:04
PROVIDERS: ATTEND Internal Medicine Gastroenterology
DX: K29.50 Unspecified chronic gastritis without bleeding (principal); K22.10 Ulcer of esophagus without bleeding; K44.9 Diaphragmatic hernia without obstruction or gangrene; K57.30 Diverticulosis of large intestine without perforation or abscess without bleeding; D50.9 Iron deficiency anemia, unspecified; K21.9 Gastro-esophageal reflux disease without esophagitis; I10 Essential (primary) hypertension; E07.9 Disorder of thyroid, unspecified; G47.33 Obstructive sleep apnea (adult) (pediatric); Z79.890 Hormone replacement therapy; Z79.899 Other long term (current) drug therapy; Z88.5 Allergy status to narcotic agent; Z88.1 Allergy status to other antibiotic agents
CPT/HCPCS: 88305; 45380; 43239; J2250; J2001; J2704

== ENCOUNTER 2022-10-06 22:51 | Inpatient (IN) | payer MEDICARE, OTHER ==
[2022-10-06] MEDS ORDERED: IBUPROFEN 600 MG TAB PO STA (23:29)
[2022-10-06] MEDS ORDERED: ACETAMINOPHEN TAB 325 MG TAB PO STA (23:29)
[2022-10-06] MEDS ORDERED: MORPHINE SULFATE 4 MG/ML SYRINGE IVP STA (23:30)
[2022-10-07 00:09] LABS: Anisocytosis Slight; Basophils % (A) 0 %; Eosinophils # (A) 0.1 k/uL (0-0.7); Eosinophils % (A) 1 %; HCT 36.2 % (34.0-46.0); HGB 11.5 gm/dL (11.4-16.0); Lymphocytes # (A) 0.6 k/uL (1.0-4.8); Lymphocytes % (A) 4 %; MCH 24.3 pg (25.0-35.0); MCHC 31.7 g/dL (31.0-37.0); MCV 76.5 fL (80.0-100.0); Mean Platelet Volume 7.9; Microcytosis Slight; Monocytes # (A) 0.9 k/uL (0-1.0); Monocytes % (A) 6 %; Neutrophils # (A) 12.2 k/uL (1.3-7.7); Neutrophils % (A) 88 %; Platelet Count 198 k/uL (150-450); RBC 4.74 m/uL (3.80-5.40); RDW 16.8 % (11.5-15.5); WBC 13.9 k/uL (3.8-10.6)
[2022-10-07 00:17] LABS: Albumin 3.2 g/dL (3.5-5.0); Calcium 8.1 mg/dL (8.4-10.2); Potassium 3.5 mmol/L (3.5-5.1); Total Bilirubin 1.2 mg/dL (0.2-1.3); Total Protein 6.1 g/dL (6.3-8.2)
--- NOTE | 2022-10-07 00:20 | ED ---
Back Pain HPI - General Chief Complaint: Back Pain/Injury Stated Complaint: Weakness Time Seen by Provider: 10/06/22 23:16 Source: patient, EMS Limitations: no limitations - History of Present Illness Initial Comments: Patient is a 71-year-old female presenting with chief complaint of back pain. Patient states that she had a spinal injection 2 weeks ago she had a spinal i njection at [facility]. Patient states that she had physical therapy 2 days ago and since then she has had increased lower back pain. Patient also admits to all of her body aches and pain shooting down the left leg. Has history of back surgery and 2 pinched nerves. Patient also admits to centralized abdominal pain with nausea and vomiting. No URI like symptoms. No palpitations. No diarrhea, hematochezia, melena. No dysuria, hematuria. - Related Data Home Medications Medication Instructions Recorded Confirmed ALPRAZolam [Xanax] 0.5 mg PO TID PRN 10/07/22 10/07/22 Levothyroxine Sodium 150 mcg PO DAILY 10/07/22 10/07/22 Naratriptan HCl [Amerge] 2.5 mg PO BID PRN MDD 5 mg 10/07/22 10/07/22 Venlafaxine HCl ER [Effexor Xr] 150 mg PO DAILY 10/07/22 10/07/22 amLODIPine [Norvasc] 5 mg PO DAILY 10/07/22 10/07/22 traMADol HCL 50 mg PO BID PRN 10/07/22 10/07/22 Allergies Allergy/AdvReac Type Severity Reaction Status Date / Time ciprofloxacin [From Cipro] Allergy Dyspnea Verified 10/07/22 11:07 ciprofloxacin HCl Allergy Dyspnea Verified 10/07/22 11:07 [From Cipro] Opioids - Morphine Analogues Allergy Unknown Verified 10/07/22 11:07 milk AdvReac Nausea & Verified 10/07/22 11:07 Vomiting & Diarrhea Review of Systems ROS Statement: Those systems with pertinent positive or pertinent negative responses have been documented in the HPI. ROS Other: All systems not noted in ROS Statement are negative. Past Medical History Past Medical History: Cancer, GERD/Reflux, Hypertension, Osteoarthritis (OA), Sleep Apnea/CPAP/BIPAP, Thyroid Disorder Additional Past Medical History / Comment(s): migraines,diverticulitis, urgency with bowel movements after eatting, hiatal hernia, no cpap used, anemia, hx skin cancer History of Any Multi-Drug Resistant Organisms: None Reported Past Surgical History: Back Surgery, Cholecystectomy, Joint Replacement, Orthopedic Surgery, Tonsillectomy, Tubal Ligation Additional Past Surgical History / Comment(s): deon knee replacements, rt foot surgery, back surgery x 2, rt knee arthroscopy, Past Anesthesia/Blood Transfusion Reactions: Motion Sickness Additional Past Anesthesia/Blood Transfusion Reaction / Comment(s): hx car sick when younger, Past Psychological History: Anxiety Past Alcohol Use History: None Reported Past Drug Use History: None Reported - Past Family History Mother Family Medical History: No Reported History General Exam Limitations: no limitations General appearance: alert, in no apparent distress Head exam: Present: atraumatic, normocephalic, normal inspection Eye exam: Present: normal appearance Neck exam: Present: normal inspection, full ROM Respiratory exam: Present: normal lung sounds bilaterally. Absent: respiratory distress, wheezes, rales, rhonchi, stridor Cardiovascular Exam: Present: normal rhythm, tachycardia, normal heart sounds. Absent: systolic murmur, diastolic murmur, rubs, gallop, clicks GI/Abdominal exam: Present: soft, tenderness. Absent: distended, guarding, rebound, rigid Neurological exam: Present: alert, oriented X3, CN II-XII intact Psychiatric exam: Present: normal affect, normal mood Skin exam: Present: warm, dry, intact, normal color. Absent: rash Course Vital Signs 10/06/22 10/07/22 10/07/22 22:52 00:30 02:03 Temperature 100.9 F H 100.3 F H 97.9 F Pulse Rate 110 H 97 82 Respiratory 20 20 18 Rate Blood Pressure 137/96 127/81 118/96 O2 Sat by Pulse 95 95 96 Oximetry 10/07/22 10/07/22 10/07/22 04:02 06:08 07:37 Temperature Pulse Rate 68 62 66 Respiratory 14 14 16 Rate Blood Pressure 100/63 104/63 101/63 O2 Sat by Pulse 95 96 97 Oximetry 10/07/22 14:16 Temperature 100.5 F H Pulse Rate 95 Respiratory 18 Rate Blood Pressure 127/90 O2 Sat by Pulse 98 Oximetry Medical Decision Making - Medical Decision Making Was pt. sent in by a medical professional or institution (, PA, PREFINISH OPERATOR, urgent care, hospital, or half-way...) When possible be specific @ -No Did you speak to anyone other than the patient for history (EMS, parent, family, police, friend...)? What history was obtained from this source @ -No Did you review nursing and triage notes (agree or disagree)? Why? @ -I reviewed and agree with nursing and triage notes Were old charts reviewed (outside hosp., previous admission, EMS record, old EKG, old radiological studies, urgent care reports/EKG's, half-way records)? Report findings @ -No old charts were reviewed Differential Diagnosis (chest pain, altered mental status, abdominal pain women, abdominal pain men, vaginal bleeding, weakness, fever, dyspnea, syncope, headache, dizziness, GI bleed, back pain, seizure, CVA, palpatations, mental health, musculoskeletal)? @ - MDM Differential Back Pain: Strain, zoster, cauda equina syndrome, epidural abscess, vertebral osteomyelitis, discitis, fracture, subluxation, disc herniation, DJD, spinal stenosis, dissection, AAA, pancreatitis, peptic ulcer disease, pyelonephritis, kidney stone this is not meant to be an all-inclusive list. EKG interpreted by me (3pts min.). @ -As above X-rays interpreted by me (1pt min.). @ -None done CT interpreted by me (1pt min.). @ -CT shows obstructing nephrolithiasis. Lumbar spine CT shows no fracture. U/S interpreted by me (1pt. min.). @ -None done What testing was considered but not performed or refused? (CT, X-rays, U/S, labs)? Why? @ -None What meds were considered but not given or refused? Why? @ -None Did you discuss the management of the patient with other professionals (professionals i.e. DrNick, PA, PREFINISH OPERATOR, lab, RT, psych nurse, clinical social work aide, radio installer, teacher, flight deck officer, case specialist)? Give summary @ -Spoke with urologist contamination consultant Dr. Goyal. Spoke with admitting physician Dr. Puri Was smoking cessation discussed for >3mins.? @ -No Was critical care preformed (if so, how long)? @ -No Were there social determinants of health that impacted care today? How? (Homelessness, low income, unemployed, alcoholism, drug addiction, transportation, low edu. Level, literacy, decrease access to med. care, long term, rehab)? @ -No Was there de-escalation of care discussed even if they declined (Discuss DNR or withdrawal of care, Hospice)? DNR status @ -No What co-morbidities impacted this encounter? (DM, HTN, Smoking, COPD, CAD, Cancer, CVA, ARF, Chemo, Hep., AIDS, mental health diagnosis, sleep apnea, morbid obesity)? @ -None Was patient admitted / discharged? Hospital course, mention meds given and route, prescriptions, significant lab abnormalities, going to OR and other pertinent info. @ -Patient was admitted for septic stone. This is a 71-year-old female presenting with chief complaint of back pain. Patient is febrile upon presentation. WBC 13.9. Urine shows severe infection. CT shows evidence of obstructing stone. I spoke with urologist on-call Dr. Goyal, requested the patient be admitted to medicine with him placed on consult. I spoke with Dr. awad accepted admission. Patient was started on IV fluids and IV Rocephin was given after blood cultures were drawn. I discussed this case with my attending Dr. Agarwal Undiagnosed new problem with uncertain prognosis? @ -No Drug Therapy requiring intensive monitoring for toxicity (Heparin, Nitro, Insulin, Cardizem)? @ -No Were any procedures done? @ -No Diagnosis/symptom? @ -Septic urolithiasis Acute, or Chronic, or Acute on Chronic? @ -Acute Uncomplicated (without systemic symptoms) or Complicated (systemic symptoms)? @ -Complicated Side effects of treatment? @ -No Exacerbation, Progression, or Severe Exacerbation? @ -No Poses a threat to life or bodily function? How? (Chest pain, [place], [place], pneumonia, PE, COPD, DKA, ARF, appy, cholecystitis, CVA, Diverticulitis, Homicidal, Suicidal, threat to staff... and all critical care pts) @ -Yes - Lab Data Result diagrams: 10/06/22 23:43 10/06/22 23:43 Lab Results 10/06/22 10/06/22 10/06/22 Range/Units 23:43 23:43 23:43 WBC 13.9 H (3.8-10.6) k/uL RBC 4.74 (3.80-5.40) m/uL Hgb 11.5 (11.4-16.0) gm/dL Hct 36.2 (34.0-46.0) % MCV 76.5 L (80.0-100.0) fL MCH 24.3 L (25.0-35.0) pg MCHC 31.7 (31.0-37.0) g/dL RDW 16.8 H (11.5-15.5) % Plt Count 198 (150-450) k/uL MPV 7.9 Neutrophils % 88 % Lymphocytes % 4 % Monocytes % 6 % Eosinophils % 1 % Basophils % 0 % Neutrophils # 12.2 H (1.3-7.7) k/uL Lymphocytes # 0.6 L (1.0-4.8) k/uL Monocytes # 0.9 (0-1.0) k/uL Eosinophils # 0.1 (0-0.7) k/uL Basophils # 0.0 (0-0.2) k/uL Anisocytosis Slight Microcytosis Slight ESR Cancelled Sodium 134 L (137-145) mmol/L Potassium 3.5 (3.5-5.1) mmol/L Chloride 102 (98-107) mmol/L Carbon Dioxide 22 (22-30) mmol/L Anion Gap 10 mmol/L BUN 15 (7-17) mg/dL Creatinine 0.88 (0.52-1.04) mg/dL Est GFR (CKD-EPI)AfAm 78 (>60 ml/min/1.73 sqM) Est GFR (CKD-EPI)NonAf 68 (>60 ml/min/1.73 sqM) Glucose 119 H (74-99) mg/dL Plasma Lactic Acid [place] 1.0 (0.7-2.0) mmol/L Calcium 8.1 L (8.4-10.2) mg/dL Total Bilirubin 1.2 (0.2-1.3) mg/dL AST 40 H (14-36) U/L ALT 31 (4-34) U/L Alkaline Phosphatase 99 (38-126) U/L Troponin I (0.000-0.034) ng/mL C-Reactive Protein 22.7 H (<1.0) mg/dL Total Protein 6.1 L (6.3-8.2) g/dL Albumin 3.2 L (3.5-5.0) g/dL Amylase 41 (30-110) U/L Lipase 20 L (23-300) U/L Urine Color Urine Appearance (Clear) Urine pH (5.0-8.0) Ur Specific [place] (1.001-1.035) Urine Protein (Negative) Urine Glucose (UA) (Negative) Urine Ketones (Negative) Urine Blood (Negative) Urine Nitrite (Negative) Urine Bilirubin (Negative) Urine Urobilinogen (<2.0) mg/dL Ur Leukocyte Esterase (Negative) Urine RBC (0-5) /hpf Urine WBC (0-5) /hpf Urine WBC Clumps (None) /hpf Ur Squamous Epith Cells (0-4) /hpf Urine Bacteria (None) /hpf Urine Mucus (None) /hpf Influenza Type A (PCR) (Not Detectd) Influenza Type B (PCR) (Not Detectd) RSV (PCR) (Not Detectd) SARS-CoV-2 (PCR) (Not Detectd) 10/06/22 10/07/22 10/07/22 Range/Units 23:43 00:49 00:55 WBC (3.8-10.6) k/uL RBC (3.80-5.40) m/uL Hgb (11.4-16.0) gm/dL Hct (34.0-46.0) % MCV (80.0-100.0) fL MCH (25.0-35.0) pg MCHC (31.0-37.0) g/dL RDW (11.5-15.5) % Plt Count (150-450) k/uL MPV Neutrophils % % Lymphocytes % % Monocytes % % Eosinophils % % Basophils % % Neutrophils # (1.3-7.7) k/uL Lymphocytes # (1.0-4.8) k/uL Monocytes # (0-1.0) k/uL Eosinophils # (0-0.7) k/uL Basophils # (0-0.2) k/uL Anisocytosis Microcytosis ESR 39 H Sodium (137-145) mmol/L Potassium (3.5-5.1) mmol/L Chloride (98-107) mmol/L Carbon Dioxide (22-30) mmol/L Anion Gap mmol/L BUN (7-17) mg/dL Creatinine (0.52-1.04) mg/dL Est GFR (CKD-EPI)AfAm (>60 ml/min/1.73 sqM) Est GFR (CKD-EPI)NonAf (>60 ml/min/1.73 sqM) Glucose (74-99) mg/dL Plasma Lactic Acid [place] (0.7-2.0) mmol/L Calcium (8.4-10.2) mg/dL Total Bilirubin (0.2-1.3) mg/dL AST (14-36) U/L ALT (4-34) U/L Alkaline Phosphatase (38-126) U/L Troponin I <0.012 (0.000-0.034) ng/mL C-Reactive Protein (<1.0) mg/dL Total Protein (6.3-8.2) g/dL Albumin (3.5-5.0) g/dL Amylase (30-110) U/L Lipase (23-300) U/L Urine Color Urine Appearance (Clear) Urine pH (5.0-8.0) Ur Specific [place] (1.001-1.035) Urine Protein (Negative) Urine Glucose (UA) (Negative) Urine Ketones (Negative) Urine Blood (Negative) Urine Nitrite (Negative) Urine Bilirubin (Negative) Urine Urobilinogen (<2.0) mg/dL Ur Leukocyte Esterase (Negative) Urine RBC (0-5) /hpf Urine WBC (0-5) /hpf Urine WBC Clumps (None) /hpf Ur Squamous Epith Cells (0-4) /hpf Urine Bacteria (None) /hpf Urine Mucus (None) /hpf Influenza Type A (PCR) Not Detected (Not Detectd) Influenza Type B (PCR) Not Detected (Not Detectd) RSV (PCR) Not Detected (Not Detectd) SARS-CoV-2 (PCR) Not Detected (Not Detectd) 10/07/22 Range/Units 03:25 WBC (3.8-10.6) k/uL RBC (3.80-5.40) m/uL Hgb (11.4-16.0) gm/dL Hct (34.0-46.0) % MCV (80.0-100.0) fL MCH (25.0-35.0) pg MCHC (31.0-37.0) g/dL RDW (11.5-15.5) % Plt Count (150-450) k/uL MPV Neutrophils % % Lymphocytes % % Monocytes % % Eosinophils % % Basophils % % Neutrophils # (1.3-7.7) k/uL Lymphocytes # (1.0-4.8) k/uL Monocytes # (0-1.0) k/uL Eosinophils # (0-0.7) k/uL Basophils # (0-0.2) k/uL Anisocytosis Microcytosis ESR Sodium (137-145) mmol/L Potassium (3.5-5.1) mmol/L Chloride (98-107) mmol/L Carbon Dioxide (22-30) mmol/L Anion Gap mmol/L BUN (7-17) mg/dL Creatinine (0.52-1.04) mg/dL Est GFR (CKD-EPI)AfAm (>60 ml/min/1.73 sqM) Est GFR (CKD-EPI)NonAf (>60 ml/min/1.73 sqM) Glucose (74-99) mg/dL Plasma Lactic Acid [place] (0.7-2.0) mmol/L Calcium (8.4-10.2) mg/dL Total Bilirubin (0.2-1.3) mg/dL AST (14-36) U/L ALT (4-34) U/L Alkaline Phosphatase (38-126) U/L Troponin I (0.000-0.034) ng/mL C-Reactive Protein (<1.0) mg/dL Total Protein (6.3-8.2) g/dL Albumin (3.5-5.0) g/dL Amylase (30-110) U/L Lipase (23-300) U/L Urine Color Yellow Urine Appearance Turbid H (Clear) Urine pH 6.0 (5.0-8.0) Ur Specific [place] 1.026 (1.001-1.035) Urine Protein 2+ H (Negative) Urine Glucose (UA) Negative (Negative) Urine Ketones 1+ H (Negative) Urine Blood Moderate H (Negative) Urine Nitrite Positive H (Negative) Urine Bilirubin Negative (Negative) Urine Urobilinogen <2.0 (<2.0) mg/dL Ur Leukocyte Esterase Large H (Negative) Urine RBC 11 H (0-5) /hpf Urine WBC >182 H (0-5) /hpf Urine WBC Clumps Moderate H (None) /hpf Ur Squamous Epith Cells 5 H (0-4) /hpf Urine Bacteria Occasional H (None) /hpf Urine Mucus Few H (None) /hpf Influenza Type A (PCR) (Not Detectd) Influenza Type B (PCR) (Not Detectd) RSV (PCR) (Not Detectd) SARS-CoV-2 (PCR) (Not Detectd) Disposition Clinical Impression: Renal stone, Pyelonephritis Disposition: ADMITTED IP TO THIS HOSP Condition: Serious Time of Disposition: 04:15
[2022-10-07 00:34] LABS: C Reactive Protein 22.7 mg/dL (<1.0)
[2022-10-07] MEDS ORDERED: HYDROmorphone 1 MG/ML 1 ML SYRINGE IVP STA (01:38)
--- NOTE | 2022-10-07 02:56 | CT ---
EXAMINATION TYPE: CT abdomen pelvis w con DATE OF EXAM: 10/07/2022 COMPARISON: None HISTORY: ABD PAIN, FEVER, WEAKNES CT DLP: 1050.15 mGycm Automated exposure control for dose reduction was used. CONTRAST: Performed with IV Contrast, patient injected with 100 mL of Isovue 370. There is subsegmental atelectasis at the posterior lung bases. There is large hiatal hernia. There ar e clips from cholecystectomy. Heart size is normal. No pericardial effusion. Liver spleen pancreas ap pear intact. The bile ducts are not dilated. There is no adrenal mass. Kidneys have normal size. There is some fullness of the right renal pelvis. There is apparent obstructing 6 mm calculus at the right ureteropelvic junction. No retroperitoneal adenopathy. The bladder distends smoothly. Mid and distal ureters are not dilated. No inguinal hernia. No free fluid in the pelvis. No sign of a pelvic mass. There is no mesenteric edema. No ascites or free air. No sign of a bowel obstruction. There is mild r ight-sided perinephric fat stranding. Appendix not clearly seen. No sign of thickened appendix. The lumbar vertebrae have normal alignment. No compression fracture. There are spondylotic changes in the lumbar spine and lower thoracic spine. Bony pelvis is intact. The hip joints are intact. Sacroil iac joints are intact. IMPRESSION: Obstructing calculus at the right ureteropelvic junction with right-sided hydronephrosis.
--- NOTE | 2022-10-07 03:04 | CT ---
EXAMINATION TYPE: CT lumbar spine w con DATE OF EXAM: 10/07/2022 COMPARISON: None HISTORY: BACK PAIN, FEVER, WEAKNES CT DLP: 1050.15 mGycm Automated exposure control for dose reduction was used. CONTRAST: Performed with IV Contrast, patient injected with 100 mL of Isovue 370. Images obtained from T12 to S1 vertebra with no contrast. The lumbar vertebrae have fairly normal alignment. Posterior elements are intact. No compression frac ture. There is degenerative hypertrophic disc changes in the lower lumbar spine. Sacroiliac joints ar e intact. No lumbar paraspinal mass. There is mild spinal stenosis at L4-5 due to facet arthropathy a nd mild disc bulging. IMPRESSION: Mild multilevel spondylotic changes. No fracture seen. Mild L4-5 bony spinal stenosis.
[2022-10-07] MEDS ORDERED: SODIUM CHLORIDE 0.9% 1,000 ML IV ONE (03:16)
[2022-10-07] MEDS ORDERED: cefTRIAXone IN SWFI 1,000 MG/10 ML SYRINGE IVP STA (03:32)
[2022-10-07] MEDS ORDERED: SODIUM CHLORIDE 0.9% 1,000 ML IV STA ×2 (04:10)
[2022-10-07 04:15] LABS: Appearance,Urine Turbid (Clear); Bacteria,Urine Occasional /hpf; Bilirubin,Urine Negative (Negative); Blood,Urine Moderate (Negative); Color,Urine Yellow; Glucose,Urine (UA) Negative (Negative); Ketones,Urine 1+ (Negative); Leukocyte Esterase,Urine Large (Negative); Mucus,Urine Few /hpf; Nitrite,Urine Positive (Negative); Protein,Urine 2+ (Negative); RBC,Urine 11 /hpf (0-5); Specific Gravity,Urine 1.026 (1.001-1.035); Squamous Epithelial Cell,Urine 5 /hpf (0-4); Urobilinogen,Urine <2.0 mg/dL (<2.0); WBC,Urine >182 /hpf (0-5)
[2022-10-07] MEDS ORDERED: IBUPROFEN 400 MG TAB PO PRN (04:24)
[2022-10-07] MEDS ORDERED: NALOXONE 0.4 MG/ML 1 ML VIAL IV PRN (04:24)
[2022-10-07] MEDS ORDERED: SODIUM CHLORIDE 0.9% 1,000 ML IV SCH (04:30)
[2022-10-07] MEDS ORDERED: GENTAMICIN 120 MG in SODIUM CHLORIDE 0.9% 100 ML IVPB PRN (06:00)
--- NOTE | 2022-10-07 09:56 | P.HPIHPCON ---
History of Present Illness H&P Date: 10/07/22 Chief Complaint: Back Pain The patient is a 71-year-old female with a past medical history of skin cancer, GERD, hypertension, osteoarthritis, sleep apnea, and hypothyroid. She presented to the emergency department on 10/07/22 with complaints of back pain. The patient reports a history of back surgery and pinched nerves. She had physical therapy two days ago and has had increased back pain since. She is also experiencing abdominal pain with associated nausea and vomiting. In the ED she was found to be febrile with a 100.3F temperature. Leukocytosis present with a WBC 13.9. Serum creatinine stable at 0.88. Urinalysis grossly positive. Urine culture and blood cultures pending. Abdomen/pelvis CT with contrast shows an obstructing 6mm calculus at the right ureteropelvic junction with right-sided hydronephrosis. The patient denies any history of recurrent UTIs or previous kidney stones. Consent for Procedure: I have explained the operation/procedure to the patient, including the risks, benefits, side effects, alternative therapies (including not receiving the proposed treatment or service), the likelihood of the patient achieving his/her goals, and potential recuperation problems for the procedure/sedation/analgesia, as well as any blood products, if indicated. I also explained to the patient the risks, benefits and side effects of the alternatives, as well as the risks related to not receiving the proposed procedure, care, treatment, or services. - Constitutional Constitutional: Reports chills, Reports fever, Reports weakness - Gastrointestinal Gastrointestinal: Reports abdominal pain, Reports nausea, Reports vomiting - Genitourinary (Female) Genitourinary: Denies dysuria, Denies hematuria - Musculoskeletal Musculoskeletal: Reports low back pain Past Medical History Past Medical History: Cancer, GERD/Reflux, Hypertension, Osteoarthritis (OA), Sleep Apnea/CPAP/BIPAP, Thyroid Disorder Additional Past Medical History / Comment(s): migraines,diverticulitis, urgency with bowel movements after eatting, hiatal hernia, no cpap used, anemia, hx skin cancer History of Any Multi-Drug Resistant Organisms: None Reported Past Surgical History: Back Surgery, Cholecystectomy, Joint Replacement, Orthopedic Surgery, Tonsillectomy, Tubal Ligation Additional Past Surgical History / Comment(s): deon knee replacements, rt foot surgery, back surgery x 2, rt knee arthroscopy, Past Anesthesia/Blood Transfusion Reactions: Motion Sickness Additional Past Anesthesia/Blood Transfusion Reaction / Comment(s): hx car sick when younger, Past Psychological History: Anxiety Past Alcohol Use History: None Reported Past Drug Use History: None Reported - Past Family History Mother Family Medical History: No Reported History Medications and Allergies Home Medications Medication Instructions Recorded Confirmed Type ALPRAZolam [Xanax] 0.5 mg PO TID PRN 10/07/22 10/07/22 History Levothyroxine Sodium 150 mcg PO DAILY 10/07/22 10/07/22 History Naratriptan HCl [Amerge] 2.5 mg PO BID PRN MDD 5 mg 10/07/22 10/07/22 History Venlafaxine HCl ER [Effexor Xr] 150 mg PO DAILY 10/07/22 10/07/22 History amLODIPine [Norvasc] 5 mg PO DAILY 10/07/22 10/07/22 History traMADol HCL 50 mg PO BID PRN 10/07/22 10/07/22 History Allergies Allergy/AdvReac Type Severity Reaction Status Date / Time ciprofloxacin [From Cipro] Allergy Dyspnea Verified 10/07/22 11:07 ciprofloxacin HCl Allergy Dyspnea Verified 10/07/22 11:07 [From Cipro] Opioids - Morphine Analogues Allergy Unknown Verified 10/07/22 11:07 milk AdvReac Nausea & Verified 10/07/22 11:07 Vomiting & Diarrhea Surgical - Exam Vital Signs Temp Pulse Resp BP Pulse Ox 100.9 F H 110 H 20 137/96 95 10/06/22 22:52 10/06/22 22:52 10/06/22 22:52 10/06/22 22:52 10/06/22 22:52 General: Well developed, well nourished. No acute distress. HEENT: Head is atraumatic, normocephalic. Lungs: Respirations even and nonlabored. On RA Abdomen/GI: Soft, non-distended. + abdominal tenderness. Skin: Warm and dry Neurologic: Alert and oriented 3, CN II-XII grossly intact. No focal deficits. Psychiatric: Appropriate mood and affect. Results - Labs 10/06/22 23:43 10/06/22 23:43 Abnormal Lab Results - Last 24 Hours (Table) 10/06/22 10/06/22 10/07/22 Range/Units 23:43 23:43 00:49 WBC 13.9 H (3.8-10.6) k/uL MCV 76.5 L (80.0-100.0) fL MCH 24.3 L (25.0-35.0) pg RDW 16.8 H (11.5-15.5) % Neutrophils # 12.2 H (1.3-7.7) k/uL Lymphocytes # 0.6 L (1.0-4.8) k/uL ESR 39 H (0-20) mm/hr Sodium 134 L (137-145) mmol/L Glucose 119 H (74-99) mg/dL Calcium 8.1 L (8.4-10.2) mg/dL AST 40 H (14-36) U/L C-Reactive Protein 22.7 H (<1.0) mg/dL Total Protein 6.1 L (6.3-8.2) g/dL Albumin 3.2 L (3.5-5.0) g/dL Lipase 20 L (23-300) U/L Urine Appearance (Clear) Urine Protein (Negative) Urine Ketones (Negative) Urine Blood (Negative) Urine Nitrite (Negative) Ur Leukocyte Esterase (Negative) Urine RBC (0-5) /hpf Urine WBC (0-5) /hpf Urine WBC Clumps (None) /hpf Ur Squamous Epith Cells (0-4) /hpf Urine Bacteria (None) /hpf Urine Mucus (None) /hpf 10/07/22 Range/Units 03:25 WBC (3.8-10.6) k/uL MCV (80.0-100.0) fL MCH (25.0-35.0) pg RDW (11.5-15.5) % Neutrophils # (1.3-7.7) k/uL Lymphocytes # (1.0-4.8) k/uL ESR (0-20) mm/hr Sodium (137-145) mmol/L Glucose (74-99) mg/dL Calcium (8.4-10.2) mg/dL AST (14-36) U/L C-Reactive Protein (<1.0) mg/dL Total Protein (6.3-8.2) g/dL Albumin (3.5-5.0) g/dL Lipase (23-300) U/L Urine Appearance Turbid H (Clear) Urine Protein 2+ H (Negative) Urine Ketones 1+ H (Negative) Urine Blood Moderate H (Negative) Urine Nitrite Positive H (Negative) Ur Leukocyte Esterase Large H (Negative) Urine RBC 11 H (0-5) /hpf Urine WBC >182 H (0-5) /hpf Urine WBC Clumps Moderate H (None) /hpf Ur Squamous Epith Cells 5 H (0-4) /hpf Urine Bacteria Occasional H (None) /hpf Urine Mucus Few H (None) /hpf Diabetes panel 10/06/22 Range/Units 23:43 Sodium 134 L (137-145) mmol/L Potassium 3.5 (3.5-5.1) mmol/L Chloride 102 (98-107) mmol/L Carbon Dioxide 22 (22-30) mmol/L BUN 15 (7-17) mg/dL Creatinine 0.88 (0.52-1.04) mg/dL Glucose 119 H (74-99) mg/dL Calcium 8.1 L (8.4-10.2) mg/dL AST 40 H (14-36) U/L ALT 31 (4-34) U/L Alkaline Phosphatase 99 (38-126) U/L Total Protein 6.1 L (6.3-8.2) g/dL Albumin 3.2 L (3.5-5.0) g/dL Calcium panel 10/06/22 Range/Units 23:43 Calcium 8.1 L (8.4-10.2) mg/dL Albumin 3.2 L (3.5-5.0) g/dL Pituitary panel 10/06/22 Range/Units 23:43 Sodium 134 L (137-145) mmol/L Potassium 3.5 (3.5-5.1) mmol/L Chloride 102 (98-107) mmol/L Carbon Dioxide 22 (22-30) mmol/L BUN 15 (7-17) mg/dL Creatinine 0.88 (0.52-1.04) mg/dL Glucose 119 H (74-99) mg/dL Calcium 8.1 L (8.4-10.2) mg/dL Adrenal panel 10/06/22 Range/Units 23:43 Sodium 134 L (137-145) mmol/L Potassium 3.5 (3.5-5.1) mmol/L Chloride 102 (98-107) mmol/L Carbon Dioxide 22 (22-30) mmol/L BUN 15 (7-17) mg/dL Creatinine 0.88 (0.52-1.04) mg/dL Glucose 119 H (74-99) mg/dL Calcium 8.1 L (8.4-10.2) mg/dL Total Bilirubin 1.2 (0.2-1.3) mg/dL AST 40 H (14-36) U/L ALT 31 (4-34) U/L Alkaline Phosphatase 99 (38-126) U/L Total Protein 6.1 L (6.3-8.2) g/dL Albumin 3.2 L (3.5-5.0) g/dL - Imaging CT scan - abdomen: report reviewed, image reviewed CT scan - pelvis: report reviewed, image reviewed Assessment and Plan Assessment: The patient will go to the OR this afternoon with Dr. Goyal for cystoscopy, right retrograde pyelogram, and right ureteral stent insertion. Dr. Goyal reviewed the procedure in detail with the patient. She was made aware of potential risks, which include anesthesia, bleeding, and ureteral injury. The need to place a ureteral stent was discussed. It was explained to the patient that her positive urinalysis, leukocytosis, and fever are of concern and that ureteroscopic stone manipulation would not be performed in the presence of infection. The patient will require a secondary procedure for stone removal once her infection clears. (1) Obstruction of right ureteropelvic junction due to stone Current Visit: Yes Status: Acute Code(s): N20.1 - CALCULUS OF URETER SNOMED Code(s): 02010315 (2) Acute pyelonephritis Current Visit: Yes Status: Acute Code(s): N10 - ACUTE PYELONEPHRITIS SNOMED Code(s): 49098416 (3) Hydronephrosis with renal and ureteral calculous obstruction Current Visit: Yes Status: Acute Code(s): N13.2 - HYDRONEPHROSIS WITH RENAL AND URETERAL CALCULOUS OBSTRUCTION SNOMED Code(s): 588657335 Plan: - Continue antibiotics - Awaiting finalization of urine culture - Continue current pain regimen - Continue antiemetics as needed - Continue IV fluids - Keep patient NPO - OR this afternoon for right ureteral stent placement Thank you for this consultation Impression and plan of care have been directed as dictated by the signing physician. Nevaeh Tyson nurse practitioner acting as scribe for signing physician. Nevaeh Tyson [facility] Palliative Care/Urology Spectralink [phone] Email: [email or web address] I have personally seen and examined the patient, reviewed the documentation and agree with the assessment and plan as written. Number of minutes spent on the visit: 40. Manuel Goyal MD Time with Patient: Greater than 30
[2022-10-07] MEDS: ACETAMINOPHEN TAB 325 MG TAB PO PRN (14:23)
[2022-10-07] MEDS: MORPHINE SULFATE 4 MG/ML SYRINGE IV PRN ×2 (14:25→19:53)
[2022-10-07] MEDS ORDERED: LACTATED RINGERS 1,000 ML IV ONE (15:07)
[2022-10-07] MEDS ORDERED: LACTULOSE 20 GM/30 ML CUP PO PRN (15:09)
[2022-10-07] MEDS ORDERED: CALCIUM CARBONATE 500 MG CHEWABLE PO PRN (15:09)
[2022-10-07] MEDS ORDERED: MELATONIN 3 MG TABLET PO PRN (15:09)
[2022-10-07] MEDS: ONDANSETRON 4 MG/2 ML VIAL IVP PRN (15:18)
--- NOTE | 2022-10-07 15:19 | P.HPIM ---
History of Present Illness H&P Date: 10/07/22 Chief Complaint: Abdominal pain This is a pleasant 71-year-old patient follows with Dr. Wilbert Cantor. Chronic stable medical conditions include hypertension, osteoarthritis, hypothyroid, hiatal hernia, anxiety, obstructive sleep apnea does not have a CPAP. She does follow with Dr. Mcfadden, from [facility] for low back pain, radiculopathy. She has received steroid injection. Also getting physical therapy. Yesterday she called for a physical therapy. Since she started having increasing abdominal pain in the umbilicus area. Followed by nausea. Patient been having urinary frequency. Patient became rather significant. Decided to come to the ER. Developed a fever. Patient's fundal obstructing calculus in the right ureteropelvic junction with right-sided hydronephrosis. Started on IV fluids IV ceftriaxone. Urology was consulted. Patient denies any chest pain or short of breath. No cardiac history. Patient's at the bedside. Patient is seen in the ER. Review of systems: GEN.: Fever and chills tired decreased appetite EYES: None HEENT: None NECK: None RESPIRATORY: None CARDIOVASCULAR: None GASTROINTESTINAL: As above GENITOURINARY: Urine frequency MUSCULOSKELETAL: Joint pains especially back pain LYMPHATICS: None HEMATOLOGICAL: None PSYCHIATRY: None NEUROLOGICAL: None Past medical history to include: GERD that is improved, hypertension, osteoarthritis, obstructive sleep apnea does not have CPAP, hypothyroid, urgency with bowel movements after eating, Hytrin hernia, anxiety Physical examination: VITAL SIGNS: 100.9, 110, 20, 1 37 x 96, 95% room air upon presentation GENERAL: BMI 34, reclining in bed, uncomfortable. EYES: Pupils equal. Conjunctiva normal. HEENT: External appearance of nose and ears normal, oral cavity grossly normal. NECK: JVD not raised; masses not palpable. HEART: First and second heart sounds are normal; no edema. LUNGS: Respiratory rate normal; clear to auscultation. ABDOMEN: Soft, nontender, liver spleen not palpable, no masses palpable. PSYCH: Alert and oriented x3; mood and affect normal. MUSCULOSKELETAL:No Clubbing/cyanosis;muscles-grossly intact. Evidence of OA NEUROLOGICAL: Cranial nerves grossly intact; no facial asymmetry, power and sensation grossly intact. LYMPHATICS: No lymph nodes palpable in the axilla and neck INVESTIGATIONS, reviewed in the clinical context: White count 13.9 hemoglobin 11.5 platelets 198 potassium 3.5 creatinine 0.88 CRP 22.7 UA positive for blood, nitrite, leukoesterase, WBC, Influenza type A, B, RSV, COVID-19: Not detected EKG tracing personally reviewed by me-sinus tachycardia rate 103 Abdominal pelvis with contrast CTs: Obstructing calculus in the right. Ureteropelvic junction with right-sided hydronephrosis. CT lumbar spine with contrast: Mild multilevel spondylitic changes. No fracture seen. Assessment and plan: -Acute right obstructive pyelonephritis from a ureteropelvic junction causing sepsis IV ceftriaxone. IV fluids. Urology consulted -Sepsis secondary to above IV fluids. IV ceftriaxone -Right ureteropelvic junction calculus. -Anxiety not otherwise specified Xanax 0.5 mg by mouth 3 times a day when necessary -Hypothyroid 150 g daily -Essential hypertension Amlodipine 5 mg a -Anxiety depression Effexor 150 mg a day -Primary osteoarthritis including lower back pain being followed by Dr. Mcfadden, from [facility]. Has received prior steroid injections. Getting physical therapy. Ultram when necessary -Obesity BMI 34 Weight loss measures -Full code IV fluids. IV ceftriaxone. Resume home medications. Care was discussed with the patient has been at bedside. Questions answered. Urology consulted. - Past Medical History Past Medical History: Cancer, GERD/Reflux, Hypertension, Osteoarthritis (OA), Sleep Apnea/CPAP/BIPAP, Thyroid Disorder Additional Past Medical History / Comment(s): migraines,diverticulitis, urgency with bowel movements after eatting, hiatal hernia, no cpap used, anemia, hx skin cancer History of Any Multi-Drug Resistant Organisms: None Reported Past Surgical History: Back Surgery, Cholecystectomy, Joint Replacement, Orthopedic Surgery, Tonsillectomy, Tubal Ligation Additional Past Surgical History / Comment(s): deon knee replacements, rt foot surgery, back surgery x 2, rt knee arthroscopy, Past Anesthesia/Blood Transfusion Reactions: Motion Sickness Additional Past Anesthesia/Blood Transfusion Reaction / Comment(s): hx car sick when younger, Past Psychological History: Anxiety Past Alcohol Use History: None Reported Past Drug Use History: None Reported - Past Family History Mother Family Medical History: No Reported History Medications and Allergies Home Medications Medication Instructions Recorded Confirmed Type ALPRAZolam [Xanax] 0.5 mg PO TID PRN 10/07/22 10/07/22 History Levothyroxine Sodium 150 mcg PO DAILY 10/07/22 10/07/22 History Naratriptan HCl [Amerge] 2.5 mg PO BID PRN MDD 5 mg 10/07/22 10/07/22 History Venlafaxine HCl ER [Effexor Xr] 150 mg PO DAILY 10/07/22 10/07/22 History amLODIPine [Norvasc] 5 mg PO DAILY 10/07/22 10/07/22 History traMADol HCL 50 mg PO BID PRN 10/07/22 10/07/22 History Allergies Allergy/AdvReac Type Severity Reaction Status Date / Time ciprofloxacin [From Cipro] Allergy Dyspnea Verified 10/07/22 11:07 ciprofloxacin HCl Allergy Dyspnea Verified 10/07/22 11:07 [From Cipro] Opioids - Morphine Analogues Allergy Unknown Verified 10/07/22 11:07 milk AdvReac Nausea & Verified 10/07/22 11:07 Vomiting & Diarrhea Physical Exam Vitals: Vital Signs Temp Pulse Resp BP Pulse Ox 10/07/22 07:37 66 16 101/63 97 10/07/22 06:08 62 14 104/63 96 10/07/22 04:02 68 14 100/63 95 10/07/22 02:03 97.9 F 82 18 118/96 96 10/07/22 00:30 100.3 F H 97 20 127/81 95 10/06/22 22:52 100.9 F H 110 H 20 137/96 95 Intake and Output 10/06/22 10/07/22 10/07/22 22:59 06:59 14:59 Other: Weight 84.368 kg Results CBC & Chem 7: 10/06/22 23:43 10/06/22 23:43 Labs: Abnormal Lab Results - Last 24 Hours (Table) 10/06/22 10/06/22 10/07/22 Range/Units 23:43 23:43 00:49 WBC 13.9 H (3.8-10.6) k/uL MCV 76.5 L (80.0-100.0) fL MCH 24.3 L (25.0-35.0) pg RDW 16.8 H (11.5-15.5) % Neutrophils # 12.2 H (1.3-7.7) k/uL Lymphocytes # 0.6 L (1.0-4.8) k/uL ESR 39 H (0-20) mm/hr Sodium 134 L (137-145) mmol/L Glucose 119 H (74-99) mg/dL Calcium 8.1 L (8.4-10.2) mg/dL AST 40 H (14-36) U/L C-Reactive Protein 22.7 H (<1.0) mg/dL Total Protein 6.1 L (6.3-8.2) g/dL Albumin 3.2 L (3.5-5.0) g/dL Lipase 20 L (23-300) U/L Urine Appearance (Clear) Urine Protein (Negative) Urine Ketones (Negative) Urine Blood (Negative) Urine Nitrite (Negative) Ur Leukocyte Esterase (Negative) Urine RBC (0-5) /hpf Urine WBC (0-5) /hpf Urine WBC Clumps (None) /hpf Ur Squamous Epith Cells (0-4) /hpf Urine Bacteria (None) /hpf Urine Mucus (None) /hpf 10/07/22 Range/Units 03:25 WBC (3.8-10.6) k/uL MCV (80.0-100.0) fL MCH (25.0-35.0) pg RDW (11.5-15.5) % Neutrophils # (1.3-7.7) k/uL Lymphocytes # (1.0-4.8) k/uL ESR (0-20) mm/hr Sodium (137-145) mmol/L Glucose (74-99) mg/dL Calcium (8.4-10.2) mg/dL AST (14-36) U/L C-Reactive Protein (<1.0) mg/dL Total Protein (6.3-8.2) g/dL Albumin (3.5-5.0) g/dL Lipase (23-300) U/L Urine Appearance Turbid H (Clear) Urine Protein 2+ H (Negative) Urine Ketones 1+ H (Negative) Urine Blood Moderate H (Negative) Urine Nitrite Positive H (Negative) Ur Leukocyte Esterase Large H (Negative) Urine RBC 11 H (0-5) /hpf Urine WBC >182 H (0-5) /hpf Urine WBC Clumps Moderate H (None) /hpf Ur Squamous Epith Cells 5 H (0-4) /hpf Urine Bacteria Occasional H (None) /hpf Urine Mucus Few H (None) /hpf Microbiology - Last 24 Hours (Table) 10/07/22 03:25 Urine Culture - Preliminary Urine,Voided
[2022-10-07] MEDS ORDERED: PROPOFOL 10 MG/ML 20 ML VIAL IV ONE (15:38)
[2022-10-07] MEDS ORDERED: fentaNYL (PF) 50 MCG/ML 2 ML AMP ONE (15:38)
[2022-10-07] MEDS ORDERED: MIDAZOLAM 2 MG/2 ML VIAL ONE (15:38)
[2022-10-07] MEDS ORDERED: LIDOCAINE 2% GLYDO JELLY 6 ML APPL MISCELLANE ONE (16:06)
[2022-10-07] MEDS ORDERED: IOPAMIDOL-370 50ML BTL INJ ONE (16:07)
--- NOTE | 2022-10-07 16:39 | P.OP ---
Date of Procedure: 10/07/22 Preoperative Diagnosis: Acute right pyelonephritis, right hydronephrosis secondary to right UPJ calculus Postoperative Diagnosis: Same Procedure(s) Performed: Cystoscopy, right ureteral stent insertion Anesthesia: MAC Surgeon: Manuel Goyal Estimated Blood Loss (ml): 0 IV fluids (ml): 400 Pathology: none sent Condition: stable Disposition: PACU Indications for Procedure: The patient is a 71-year-old white female admitted with right flank pain. CT scan shows right hydronephrosis due to a 6 mm right UPJ calculus. The patient has been noted to be febrile, and has leukocytosis. Urinalysis is consistent with infection. Operative Findings: Cystitis. Urine drained from right renal pelvis upon stent placement. Description of Procedure: The patient was taken to the operating room and placed in the dorsolithotomy position, with legs supported in Dennis stirrups. The external genitalia was prepped and draped sterilely. The 30 lens was used to introduce the 22-Cypriot Stortz cystoscopic sheath through the urethra and into the bladder under direct vision. The bladder was examined in its entirety. The urine upon entering the bladder was cloudy, requiring irrigation. The right ureteral orifice was identified with difficulty. The left ureteral orifice was not identified. No tumors or foreign bodies were seen. An angle-tip 0.035 inch Glidewire was passed through a 5-Cypriot open-ended catheter, which was passed through the cystoscope. The right ureteral orifice was cannulated, and the Glidewire was slowly advanced up to the renal pelvis. A 24 cm, 6-Cypriot double-J ureteral s tent was placed over the wire. Proper stent positioning was verified fluoroscopically and endoscopically. Urine which was essentially clear in appearance drained through the stent, consistent with a "hydronephrotic bojorquez". The right renal pelvis was opacified due to IV contrast given for her CT scan, consistent with delayed excretion due to obstruction. A radio opaque calculus was not seen. The bladder was emptied and the cystoscope removed. The patient tolerated the procedure well was taken to the recovery room in stable condition.
[2022-10-07] MEDS: amLODIPine 5 MG TAB PO SCH (17:49)
[2022-10-07] MEDS: ENOXAPARIN 40 MG/0.4 ML SYRINGE SQ SCH (18:29)
[2022-10-07] MEDS: KETOROLAC 15 MG/ML 1 ML VIAL IVP PRN (19:53)
[2022-10-07] MEDS: ALPRAZolam 0.5 MG TAB PO PRN (21:10)
[2022-10-08] MEDS: ACETAMINOPHEN TAB 325 MG TAB PO PRN (01:46)
[2022-10-08] MEDS: MORPHINE SULFATE 4 MG/ML SYRINGE IV PRN ×4 (01:46→23:36)
[2022-10-08] MEDS: LEVOTHYROXINE 75 MCG TAB PO SCH (03:37)
[2022-10-08] MEDS: ALPRAZolam 0.5 MG TAB PO PRN ×2 (03:37→23:36)
[2022-10-08] MEDS: KETOROLAC 15 MG/ML 1 ML VIAL IVP PRN ×2 (03:43→19:42)
[2022-10-08 08:05] LABS: Anisocytosis Slight; Basophils % (A) 0 %; Eosinophils # (A) 0.1 k/uL (0-0.7); Eosinophils % (A) 1 %; HCT 30.4 % (34.0-46.0); Lymphocytes # (A) 0.8 k/uL (1.0-4.8); Lymphocytes % (A) 10 %; MCH 25.5 pg (25.0-35.0); MCHC 32.2 g/dL (31.0-37.0); MCV 79.3 fL (80.0-100.0); Mean Platelet Volume 7.5; Microcytosis Slight; Monocytes # (A) 0.6 k/uL (0-1.0); Monocytes % (A) 7 %; Neutrophils # (A) 6.6 k/uL (1.3-7.7); Neutrophils % (A) 80 %; Platelet Count 179 k/uL (150-450); RBC 3.83 m/uL (3.80-5.40); RDW 17.2 % (11.5-15.5); WBC 8.2 k/uL (3.8-10.6)
[2022-10-08 08:13] LABS: HGB 9.8 gm/dL (11.4-16.0)
[2022-10-08 08:15] LABS: African American GFR (CKD) 74 (>60 ml/min/1.73 sqM); Anion Gap 8 mmol/L; Blood Urea Nitrogen 15 mg/dL (7-17); Calcium 7.9 mg/dL (8.4-10.2); Carbon Dioxide 24 mmol/L (22-30); Chloride 105 mmol/L (98-107); Glucose 106 mg/dL (74-99); Non-African American GFR(CKD) 65 (>60 ml/min/1.73 sqM); Potassium 3.5 mmol/L (3.5-5.1); Sodium 137 mmol/L (137-145)
[2022-10-08] MEDS: amLODIPine 5 MG TAB PO SCH (08:31)
[2022-10-08] MEDS: ENOXAPARIN 40 MG/0.4 ML SYRINGE SQ SCH (08:31)
[2022-10-08] MEDS: VENLAFAXINE HCL ER 150 MG CAP PO SCH (08:31)
--- NOTE | 2022-10-08 09:33 | FL ---
Fluoroscopy INDICATION: Pain FINDINGS: Fluoroscopy time: 23.3 seconds. DAP: 3.3587 mGycm^2 Images obtained: 3. IMPRESSIONS: 1. Documentation of fluoroscopy.
--- NOTE | 2022-10-08 14:30 | P.PN ---
Subjective Progress Note Date: 10/08/22 Principal diagnosis: Acute right pyelonephritis complicated by right UPJ calculus The patient was admitted with acute right pyelonephritis. This was complicated by 6 mm right UPJ calculus. She underwent right ureteral stent insertion yesterday. Urine culture shows gram-negative bacilli. Blood cultures are negative to date. She denies flank pain but does report urinary frequency and urgency. She is currently receiving Rocephin. Objective - Vital Signs Vital signs: Vital Signs Temp 97.9 F 10/08/22 07:43 Pulse 68 10/08/22 08:00 Resp 18 10/08/22 08:00 BP 93/58 10/08/22 07:43 Pulse Ox 90 L 10/08/22 07:43 FiO2 Intake & Output 10/07/22 10/08/22 10/08/22 18:59 06:59 18:59 Intake Total 623 1490 Output Total 50 Balance 573 1490 Weight 84.368 kg Intake: IV 603 Intake, IV Titration 20 650 Amount Lactated Ringers 1,000 ml 20 @ 0 mls/hr IV .STK-MED ONE Rx#:[id number] Sodium Chloride 0.9% 1, 600 000 ml @ 100 mls/hr IV . Q10H STA Rx#:[id number] cefTRIAXone 1 gm In 50 Sodium Chloride 0.9% 50 ml @ 100 mls/hr IVPB Q12H ZAY Rx#:[id number] Oral 840 Output: Urine 50 Estimated Blood Loss 0 Other: Voiding Method Toilet Toilet Bedside Commode Bedside Commode # Voids 2 1 - Constitutional General appearance: Present: average body habitus, no acute distress - Gastrointestinal General gastrointestinal: Present: soft. Absent: distended, tenderness - Psychiatric Psychiatric: Present: A&O x's 3, appropriate affect - Labs CBC & Chem 7: 10/08/22 07:09 10/08/22 07:09 Labs: Abnormal Lab Results - Last 24 Hours (Table) 10/08/22 10/08/22 Range/Units 07:09 07:09 Hgb 9.8 L D (11.4-16.0) gm/dL Hct 30.4 L (34.0-46.0) % MCV 79.3 L (80.0-100.0) fL RDW 17.2 H (11.5-15.5) % Lymphocytes # 0.8 L (1.0-4.8) k/uL Glucose 106 H (74-99) mg/dL Calcium 7.9 L (8.4-10.2) mg/dL Microbiology - Last 24 Hours (Table) 10/07/22 03:25 Urine Culture - Preliminary Urine,Voided Gram Neg Bacilli 10/07/22 03:58 Blood Culture - Preliminary Blood No Growth after 24 hours 10/07/22 03:50 Blood Culture - Preliminary Blood No Growth after 24 hours Assessment and Plan Assessment: The patient underwent stent insertion and is currently receiving Rocephin, pending the final urine culture results. She is feeling better but reports urinary frequency and urgency, presumably due to the ureteral stent. (1) Obstruction of right ureteropelvic junction due to stone Current Visit: Yes Status: Acute Code(s): N20.1 - CALCULUS OF URETER SNOMED Code(s): 63903090 (2) Acute pyelonephritis Current Visit: Yes Status: Acute Code(s): N10 - ACUTE PYELONEPHRITIS SNOMED Code(s): 05057366 (3) Hydronephrosis with renal and ureteral calculous obstruction Current Visit: Yes Status: Acute Code(s): N13.2 - HYDRONEPHROSIS WITH RENAL AND URETERAL CALCULOUS OBSTRUCTION SNOMED Code(s): 947945707 Plan: - Continue Rocephin - Awaiting finalization of urine culture - Continue current pain regimen - Continue antiemetics as needed - Continue IV fluids - I have prescribed oxybutynin chloride to help with the irritative voiding sym ptoms. - I reviewed with the patient that she will be discharged home on appropriate antibiotics to treat her UTI. Once this has resolved, she will undergo elective cystoscopy, right ureteral stent removal, right ureteroscopy with ureteroscopic removal of her UPJ calculus.
[2022-10-08] MEDS: ONDANSETRON 4 MG/2 ML VIAL IVP PRN (14:51)
[2022-10-08] MEDS: OXYBUTYNIN XL 5 MG TAB.ER.24 PO SCH (15:15)
--- NOTE | 2022-10-08 22:26 | P.PN ---
Subjective Progress Note Date: 10/08/22 This is a 71 year old female who is admitted for obstructing right kidney stone. Patient is evaluated today postoperative day #1 cystoscopy with right ureteral stent insertion. Patient reports resolving hematuria. Has some continue right lower back pain also improving. Urine culture showing gram negative bacilli. Patient is currently on IV ceftriaxone. Did have temperature of 102 early this morning. Recommend to continue on IV antibiotics and possible DC home tomorrow if cleared by urology. White count has normalized 8.2 today. Review of Systems Constitutional: Denied any fatigue Reports fever. Cardio vascular: denied any chest pain, palpitations Gastrointestinal: denied any nausea, vomiting, diarrhea Pulmonary: Denied any shortness of breath cough Neurologic denied any new focal deficits All inpatient medications were reviewed and appropriate changes in these medications as dictated in the interval history and assessment and plan. Physical examination: GENERAL: BMI 34, reclining in bed, comfortable and resting. Alert and oriented x 3. HEENT: Pupils equal. Conjunctiva normal. External appearance of nose and ears normal, oral cavity grossly normal. normocephalic. HEART: First and second heart sounds are normal; no edema. LUNGS: Respiratory rate normal; clear to auscultation. ABDOMEN: Soft, nontender, liver spleen not palpable, no masses palpable. MUSCULOSKELETAL:No Clubbing/cyanosis;muscles-grossly intact. Evidence of OA NEUROLOGICAL: Cranial nerves grossly intact; no facial asymmetry, power and sensation grossly intact. Assessment and Plan -Acute right obstructive pyelonephritis from a ureteropelvic junction causing sepsis Status post right stent placement continues on IV ceftriaxone. -Sepsis secondary to above IV fluids. IV ceftriaxone -Right ureteropelvic junction calculus. -Anxiety not otherwise specified Xanax 0.5 mg by mouth 3 times a day when necessary -Hypothyroid 150 g daily -Essential hypertension Amlodipine 5 mg a -Anxiety depression Effexor 150 mg a day -Primary osteoarthritis including lower back pain being followed by Dr. Mcfadden, [facility]. Has received prior steroid injections. Getting physical therapy. Ultram when necessary -Obesity BMI 34 Weight loss measures -Full code Continue current supportive care and IV antibiotics. Patient to be monitored overnight and pending final urine culture. Possible D/C home tomorrow on oral antibiotics and pending urology clearance. The impression and plan of care has been dictated by Migdalia Spring, Nurse Practitioner as directed. Dr. Tawanna MD I have performed a history and physical examination and medical decision making of this patient, discussed the same with the dictator, and agree with the dictators assessment and plan as written, documented as a scribe. Based on total visit time, I have performed more than 50% of this visit. Objective - Vital Signs Vital signs: Vital Signs Temp 98.0 F 10/08/22 14:24 Pulse 104 H 10/08/22 14:24 Resp 18 10/08/22 14:24 BP 116/72 10/08/22 14:24 Pulse Ox 91 L 10/08/22 14:24 FiO2 Intake & Output 10/07/22 10/08/22 10/08/22 18:59 06:59 18:59 Intake Total 623 1490 Output Total 50 Balance 573 1490 Weight 84.368 kg Intake: IV 603 Intake, IV Titration 20 650 Amount Lactated Ringers 1,000 ml 20 @ 0 mls/hr IV .[facility] Rx#:[id number] Sodium Chloride 0.9% 1, 600 000 ml @ 100 mls/hr IV . Q10H [facility] Rx#:[id number] cefTRIAXone 1 gm In 50 Sodium Chloride 0.9% 50 ml @ 100 mls/hr IVPB Q12H [facility] Rx#:[id number] Oral 840 Output: Urine 50 Estimated Blood Loss 0 Other: Voiding Method Toilet Toilet Bedside Commode Bedside Commode # Voids 2 1 - Labs CBC & Chem 7: 10/08/22 07:09 10/08/22 07:09 Labs: Abnormal Lab Results - Last 24 Hours (Table) 10/08/22 10/08/22 Range/Units 07:09 07:09 Hgb 9.8 L D (11.4-16.0) gm/dL Hct 30.4 L (34.0-46.0) % MCV 79.3 L (80.0-100.0) fL RDW 17.2 H (11.5-15.5) % Lymphocytes # 0.8 L (1.0-4.8) k/uL Glucose 106 H (74-99) mg/dL Calcium 7.9 L (8.4-10.2) mg/dL Microbiology - Last 24 Hours (Table) 10/07/22 03:25 Urine Culture - Preliminary Urine,Voided Gram Neg Bacilli 10/07/22 03:58 Blood Culture - Preliminary Blood No Growth after 24 hours 10/07/22 03:50 Blood Culture - Preliminary Blood No Growth after 24 hours Assessment and Plan Time with Patient: Less than 30
[2022-10-09] MEDS: KETOROLAC 15 MG/ML 1 ML VIAL IVP PRN (02:45)
[2022-10-09] MEDS: LEVOTHYROXINE 75 MCG TAB PO SCH (06:08)
--- NOTE | 2022-10-09 09:59 | P.PN ---
Subjective Progress Note Date: 10/09/22 Principal diagnosis: Acute right pyelonephritis complicated by right UPJ calculus The patient was admitted with acute right pyelonephritis. This was complicated by 6 mm right UPJ calculus. She underwent right ureteral stent insertion on 10/07/2022. Urine culture shows gram-negative bacilli. Blood cultures are negative to date. She denies flank pain but does report dysuria, urinary frequency, and urgency. She is currently receiving Rocephin. She has received a single dose of oxybutynin chloride but does not feel this has changed her voiding symptoms. Objective - Vital Signs Vital signs: Vital Signs Temp 98.2 F 10/09/22 06:55 Pulse 72 10/09/22 06:55 Resp 18 10/09/22 06:55 BP 123/75 10/09/22 06:55 Pulse Ox 91 L 10/09/22 06:55 FiO2 Intake & Output 10/08/22 10/09/22 10/09/22 18:59 06:59 18:59 Intake Total 1360 Balance 1360 Intake: Intake, IV Titration 50 Amount cefTRIAXone 1 gm In 50 Sodium Chloride 0.9% 50 ml @ 100 mls/hr IVPB Q12H [facility] Rx#:[id number] Oral 1310 Other: Voiding Method Toilet Toilet Bedside Commode Bedside Commode # Voids 1 4 - Constitutional General appearance: Present: average body habitus, cooperative, no acute distress - Gastrointestinal General gastrointestinal: Present: soft. Absent: distended, tenderness - Psychiatric Psychiatric: Present: A&O x's 3 - Labs CBC & Chem 7: 10/08/22 07:09 10/08/22 07:09 Labs: Microbiology - Last 24 Hours (Table) 10/07/22 03:50 Blood Culture - Preliminary Blood No Growth after 48 hours 10/07/22 03:58 Blood Culture - Preliminary Blood No Growth after 48 hours 10/07/22 03:25 Urine Culture - Preliminary Urine,Voided Gram Neg Bacilli Assessment and Plan Assessment: The patient underwent stent insertion and is currently receiving Rocephin, pending the final urine culture results. She is feeling better but reports urinary frequency and urgency, presumably due to the ureteral stent. (1) Obstruction of right ureteropelvic junction due to stone Current Visit: Yes Status: Acute Code(s): N20.1 - CALCULUS OF URETER SNOMED Code(s): 19806972 (2) Acute pyelonephritis Current Visit: Yes Status: Acute Code(s): N10 - ACUTE PYELONEPHRITIS SNOMED Code(s): 56617469 (3) Hydronephrosis with renal and ureteral calculous obstruction Current Visit: Yes Status: Acute Code(s): N13.2 - HYDRONEPHROSIS WITH RENAL AND URETERAL CALCULOUS OBSTRUCTION SNOMED Code(s): 419913317 Plan: - Continue Rocephin - Awaiting finalization of urine culture - Continue current pain regimen - Continue antiemetics as needed - Continue IV fluids - I have prescribed oxybutynin chloride to help with the irritative voiding symptoms. - From a urologic standpoint, she may be discharged home on oral antibiotics once the urine culture is completed. My office will make arrangements for her to undergo cystoscopy, right ureteral stent removal, right ureteroscopy with Holmium laser lithotripsy and possible stone basketing to remove her calculus. Please notify me if I can be of any further assistance during this hospitalization.
[2022-10-09] MEDS: VENLAFAXINE HCL ER 150 MG CAP PO SCH (10:36)
[2022-10-09] MEDS: amLODIPine 5 MG TAB PO SCH (10:36)
[2022-10-09] MEDS: ENOXAPARIN 40 MG/0.4 ML SYRINGE SQ SCH (10:36)
[2022-10-09] MEDS: OXYBUTYNIN XL 5 MG TAB.ER.24 PO SCH (10:36)
[2022-10-09 12:27] VITALS: BP 115/77; PULSE 70; RESP 17; TEMP 98.1
--- NOTE | 2022-10-11 20:15 | P.DS ---
Providers Date of admission: 10/07/22 04:39 Attending physician: Samuel Puri Consults: 10/07/22 04:24 Consult Physician Urgent Consulting Provider: Manuel Goyal Consult Reason/Comments: septic stone Do you want consulting provider notified?: Already Contacted Primary care physician: Wilbert Cantor [facility] Course: Final Diagnosis -Acute right obstructive pyelonephritis and sepsis -Right ureteropelvic junction calculus and right hydronephrosis -Anxiety -Hypothyroid -Essential hypertension -Anxiety depression -Primary osteoarthritis -Obesity -Full code Discharge Disposition Patient is stable for discharge home on oral antibiotics and urology follow up. Patient to continue oral ceftin for 7 more days for an acute complicated UTI/Pyelonephritis. Urology office will contact patient to schedule ureteroscopic removal of her calculus. Patient has also been started on oxybutynin for urinary discomfort when voiding. Follow up with PCP in 1 to 2 days. Hospital Course This is a pleasant 71 year old female with medical history of anxiety, hypothyroid, hypertension. Presents to the hospital from physical therapy with abdominal pain around the umbilicus area with nausea and urinary frequent. Patient also had fever. Found to have obstructive right ureteropelvic junction calculus and obstructive pyelonephritis with sepsis. There was also right sided hydronephrosis. Patient had negative blood culture. Urine culture found to be positive for klebsiella pneumoniae. Patient had urology consultation and underwent cystoscopy with right ureteral stent insertion. Patient had hematuria and discomfort with urination postoperatively which resolved. Patient was started on ditropan. Patient was treated inpatient with IV ceftriaxone. Patient continued with fever and was monitored an additional overnight and temperature resolved. Patient was cleared for discharge on oral ceftin 500 mg bid for 1 week. Urology to follow up with patient and schedule patient for urteroscopic removal of calculus. 10/09/2022 Patient is evaluated on the medical floor today. Patient is denying abdominal pain, denying back pain. Fever has resolved. Tolerating diet and hematuria has improved. White count has normalized to 8.2. Patient is on room air and blood pressure within normal limits. Kidney function is normal with BUN of 15 and creatinine of 0.91. Cleared for discharged with above mentioned recommendations. Please see medication reconciliation for a list of current medication. Thank you for allowing us to participate in the care of this patient. The impression and plan of care has been dictated by Migdalia Spring Nurse Practitioner as directed. Dr. Tawanna MD I have performed a history and physical examination and medical decision making of this patient, discussed the same with the dictator, and agree with the dictators assessment and plan as written, documented as a scribe. Based on total visit time, I have performed more than 50% of this visit. Patient Condition at Discharge: Good Plan - Discharge Summary New Discharge Prescriptions: New Oxybutynin Chloride [Oxybutynin Chloride ER] 10 mg PO DAILY #30 tab cefUROXime axetiL [Ceftin] 500 mg PO BID 7 Days #14 tab Continue Venlafaxine HCl ER [Effexor XR] 150 mg PO DAILY Levothyroxine Sodium 150 mcg PO DAILY ALPRAZolam [Xanax] 0.5 mg PO TID PRN PRN Reason: Anxiety traMADol HCL 50 mg PO BID PRN PRN Reason: Pain amLODIPine [Norvasc] 5 mg PO DAILY Naratriptan HCl [Amerge] 2.5 mg PO BID PRN MDD 5 mg PRN Reason: Migraine Headache Discharge Medication List ALPRAZolam [Xanax] 0.5 mg PO TID PRN 10/07/22 [History] Levothyroxine Sodium 150 mcg PO DAILY 10/07/22 [History] Naratriptan HCl [Amerge] 2.5 mg PO BID PRN MDD 5 mg 10/07/22 [History] Venlafaxine HCl ER [Effexor XR] 150 mg PO DAILY 10/07/22 [History] amLODIPine [Norvasc] 5 mg PO DAILY 10/07/22 [History] traMADol HCL 50 mg PO BID PRN 10/07/22 [History] Oxybutynin Chloride [Oxybutynin Chloride ER] 10 mg PO DAILY #30 tab 10/09/22 [Rx] cefUROXime axetiL [Ceftin] 500 mg PO BID 7 Days #14 tab 10/09/22 [Rx] Follow up Appointment(s)/Referral(s): Wilbert Cantor MD [Primary Care Provider] - 1-2 days Activity/Diet/Wound Care/Special Instructions: Dr. Goyal' office will make arrangements for patient to undergo ureteroscopic removal of her calculus. Office will follow up with patient Continue to increase oral intake Discharge Disposition: HOME SELF-CARE
== END 2022-10-09 17:10 | disposition home or self-care (01) | DRG 854 ==
LOC: EC 22:51 → 5NMEDONC 10-07 04:39
PROVIDERS: ADMIT Hospitalist; ATTEND Hospitalist
PROC: 0T768DZ Dilation of Right Ureter with Intraluminal Device, Via Natural or Artificial Opening Endoscopic (ICD-10-PCS; principal; 2022-10-07 11:30)
PROC: BT1FZZZ Fluoroscopy of Left Kidney, Ureter and Bladder (ICD-10-PCS; 2022-10-07 11:30)
DX: A41.59 Other Gram-negative sepsis (principal); N10 Acute pyelonephritis; N13.6 Pyonephrosis; N20.2 Calculus of kidney with calculus of ureter; N20.0 Calculus of kidney; G43.909 Migraine, unspecified, not intractable, without status migrainosus; B96.1 Klebsiella pneumoniae [K. pneumoniae] as the cause of diseases classified elsewhere; E03.9 Hypothyroidism, unspecified; Z28.310 Unvaccinated for COVID-19; Z28.21 Immunization not carried out because of patient refusal; E66.9 Obesity, unspecified; I10 Essential (primary) hypertension; Z68.34 Body mass index [BMI] 34.0-34.9, adult; F32.A Depression, unspecified; F41.9 Anxiety disorder, unspecified; G47.33 Obstructive sleep apnea (adult) (pediatric); I25.10 Atherosclerotic heart disease of native coronary artery without angina pectoris; K44.9 Diaphragmatic hernia without obstruction or gangrene; M19.91 Primary osteoarthritis, unspecified site; M54.10 Radiculopathy, site unspecified; Z79.890 Hormone replacement therapy; Z87.442 Personal history of urinary calculi; Z79.899 Other long term (current) drug therapy; Z96.653 Presence of artificial knee joint, bilateral; Z88.1 Allergy status to other antibiotic agents; Z88.5 Allergy status to narcotic agent; Z85.828 Personal history of other malignant neoplasm of skin; Z87.440 Personal history of urinary (tract) infections
CPT/HCPCS: 36415; 72132; 74177; 80048; 80053; 81001; 82150; 83605; 83690; 84484; 85025; 85652; 86140; 87040; 87077; 87086; 87186; 87636; 88108; 93005; 96361; 96374; 96375; 96376; 99285

== ENCOUNTER → 2022-10-27 | Outpatient (CLI) | payer MEDICARE ==
[2022-10-27 15:30] LABS: Appearance,Urine Cloudy (Clear); Bilirubin,Urine Negative (Negative); Blood,Urine Large (Negative); Color,Urine Yellow (Yellow); Ketones,Urine Negative (Negative); Nitrite,Urine Negative (Negative); PH, Urine 5.5 (5.0-8.0); Specific Gravity,Urine 1.017 (1.001-1.030); Urobilinogen,Urine 0.2 (0.2,1.0)
[2022-10-27 15:37] LABS: Bacteria,Urine None Seen /HPF (None Seen)
== END | disposition home or self-care (01) ==
LOC: LABPAT 10:31
PROVIDERS: ATTEND Urology
DX: Z01.812 Encounter for preprocedural laboratory examination (principal); N20.0 Calculus of kidney; R10.9 Unspecified abdominal pain
CPT/HCPCS: 81001; 87086

== ENCOUNTER 2022-11-03 10:36 | Day surgery (SDC) | payer MEDICARE, OTHER ==
--- NOTE | 2022-11-03 06:44 | P.GSHP ---
History of Present Illness H&P Date: 11/03/22 Chief Complaint: Flank and abdominal pain The patient is a 71-year-old female admitted last month with abdominal and flank pain associated with nausea and vomiting. She was found to be febrile, and laboratory studies showed leukocytosis. CT scan of the abdomen and pelvis sh owed right hydronephrosis due to a 6 mm UPJ calculus. She has no prior history of UTIs or urolithiasis. She underwent placement of a right ureteral stent and was treated for a Klebsiella UTI. She now comes for ureteroscopic removal of the calculus. - Constitutional Constitutional: Reports chills, Reports fever - Gastrointestinal Gastrointestinal: Reports nausea, Reports vomiting - Genitourinary (Female) Genitourinary: Reports flank pain, Reports kidney stones Past Medical History Past Medical History: Cancer, GERD/Reflux, Hypertension, Osteoarthritis (OA), Sleep Apnea/CPAP/BIPAP, Thyroid Disorder Additional Past Medical History / Comment(s): migraines,diverticulitis, urgency with bowel movements after eatting, hiatal hernia, no cpap used, anemia, hx skin cancer History of Any Multi-Drug Resistant Organisms: None Reported Past Surgical History: Back Surgery, Cholecystectomy, Joint Replacement, Orthopedic Surgery, Tonsillectomy, Tubal Ligation Additional Past Surgical History / Comment(s): deon knee replacements, rt foot surgeryx 3 with plate and screws in place back surgery x 2, rt knee arthroscopy, Past Anesthesia/Blood Transfusion Reactions: Motion Sickness Additional Past Anesthesia/Blood Transfusion Reaction / Comment(s): hx car sick when younger, Smoking Status: Never smoker - Past Family History Mother Family Medical History: No Reported History Medications and Allergies Home Medications Medication Instructions Recorded Confirmed Type ALPRAZolam [Xanax] 0.5 mg PO TID PRN 10/07/22 10/28/22 History Levothyroxine Sodium 150 mcg PO DAILY 10/07/22 10/28/22 History Naratriptan HCl [Amerge] 2.5 mg PO BID PRN MDD 5 mg 10/07/22 10/28/22 History amLODIPine [Norvasc] 5 mg PO DAILY 10/07/22 10/28/22 History Sulfamethoxazole/Trimethoprim 1 tab PO BID 10/28/22 10/28/22 History [Sulfamethoxazole-Tmp Ds Tablet] Allergies Allergy/AdvReac Type Severity Reaction Status Date / Time ciprofloxacin [From Cipro] Allergy Dyspnea Verified 10/28/22 14:38 ciprofloxacin HCl Allergy Dyspnea Verified 10/28/22 14:38 [From Cipro] Opioids - Morphine Analogues Allergy Unknown Verified 10/28/22 14:38 milk AdvReac Nausea & Verified 10/28/22 14:38 Vomiting & Diarrhea Surgical - Exam - General well developed, well nourished, no distress - Respiratory normal respiratory effort - Abdomen Abdomen: soft, non tender, no guarding, no rigid, no rebound - Genitourinary normal external genitalia - Psychiatric oriented to time, oriented to person, oriented to place, speech is normal, memory intact Results - Imaging CT scan - abdomen: report reviewed, image reviewed Assessment and Plan Assessment: The patient underwent stent placement and has been treated with antibiotics to resolve her Klebsiella UTI. (1) Calculus of ureter Status: Acute Code(s): N20.1 - CALCULUS OF URETER SNOMED Code(s): 23497551 Plan: Cystoscopy, right ureteral stent removal, right ureteroscopy with Holmium laser lithotripsy and possible stone basketing. The procedure has been reviewed in detail with the patient. She is aware of potential risks, which include anesthesia, bleeding, infection, inability to successfully remove the calculus, and ureteral injury.
--- NOTE | 2022-11-03 10:56 | XR ---
EXAMINATION TYPE: XR KUB DATE OF EXAM: 11/03/2022 COMPARISON: CT abdomen and pelvis 10/07/2022. HISTORY: Pain TECHNIQUE: Two supine KUB images of the abdomen is obtained FINDINGS: Small bowel demonstrates no evidence for dilatation or air fluid levels. Gas and fecal material is seen in non-distended colon. Left pelvic phlebolith. Right ureteral stent identified. Suspected 5.5 mm calcification along the rig ht proximal ureter similar in location to prior CT. No definitive calcifications overlying both kidne ys. Cholecystectomy clips in right upper quadrant. The lung bases are clear. The osseous structures are intact. Degenerative changes of the visualized spine. IMPRESSION: As above.
[2022-11-03] MEDS ORDERED: LACTATED RINGERS 1,000 ML IV SCH (11:35)
[2022-11-03] MEDS ORDERED: ONDANSETRON 4 MG/2 ML VIAL IVP ONE (11:35)
[2022-11-03] MEDS ORDERED: DEXAMETHASONE SOD PHOSPHATE 4 MG/ML 1 ML VIAL IV ONE (11:35)
[2022-11-03 12:29] LABS: Anisocytosis Slight; Basophils % (A) 0 %; Eosinophils # (A) 0.3 k/uL (0-0.7); Eosinophils % (A) 3 %; HCT 41.1 % (34.0-46.0); Lymphocytes # (A) 1.9 k/uL (1.0-4.8); Lymphocytes % (A) 24 %; MCH 25.2 pg (25.0-35.0); MCHC 31.8 g/dL (31.0-37.0); MCV 79.2 fL (80.0-100.0); Mean Platelet Volume 7.5; Microcytosis Slight; Monocytes # (A) 0.4 k/uL (0-1.0); Monocytes % (A) 4 %; Neutrophils # (A) 5.5 k/uL (1.3-7.7); Neutrophils % (A) 67 %; Platelet Count 322 k/uL (150-450); RBC 5.19 m/uL (3.80-5.40); RDW 18.2 % (11.5-15.5); WBC 8.2 k/uL (3.8-10.6)
[2022-11-03 12:36] LABS: HGB 13.1 gm/dL (11.4-16.0)
[2022-11-03] MEDS ORDERED: KETOROLAC 15 MG/ML 1 ML VIAL ONE (13:58)
[2022-11-03] MEDS ORDERED: PROPOFOL 10 MG/ML 20 ML VIAL IV ONE (13:58)
[2022-11-03] MEDS ORDERED: MIDAZOLAM 2 MG/2 ML VIAL ONE (13:58)
[2022-11-03] MEDS ORDERED: fentaNYL (PF) 50 MCG/ML 2 ML AMP ONE (13:58)
[2022-11-03] MEDS ORDERED: LIDOCAINE 2% INJ 20 MG/ML (2 ML VIAL) ONE (13:58)
--- NOTE | 2022-11-03 14:55 | P.OP ---
Date of Procedure: 11/03/22 Preoperative Diagnosis: Right renal calculus Postoperative Diagnosis: Same Procedure(s) Performed: Cystoscopy, right ureteral stent removal, right ureteroscopy with Holmium laser lithotripsy and stone basketing Anesthesia: EFREN Surgeon: Manuel Goyal Estimated Blood Loss (ml): 0 IV fluids (ml): 600 Pathology: other (Right renal calculus fragments, sent for chemical analysis) Condition: stable Disposition: PACU Indications for Procedure: The patient is a 71-year-old female admitted last month with abdominal and flank pain associated with nausea and vomiting. She was found to be febrile, and laboratory studies showed leukocytosis. CT scan of the abdomen and pelvis showed right hydronephrosis due to a 6 mm UPJ calculus. She has no prior history of UTIs or urolithiasis. She underwent placement of a right ureteral stent and was treated for a Klebsiella UTI. She now comes for ureteroscopic removal of the calculus. Operative Findings: Right renal pelvic calculus, fragmented and removed completely. Description of Procedure: The patient was taken to the operating room and placed in the dorsolithotomy position, with legs supported in Dennis stirrups. The external genitalia was prepped and draped sterilely. The 30 lens was used to introduce the 21-German Thorpe cystoscopic sheath through the urethra and into the bladder under direct vision. The bladder was examined in its entirety. No tumors or foreign bodies were seen. Grasping forceps were used to grasp the distal end of the right ureteral stent, which was removed along with the cystoscope. A 0.038 inch Glidewire was passed through the stent and up to the right renal pelvis. An 11/13-German ureteral access catheter was passed over the wire, up to the proximal ureter. The Thorpe BitWinera flexible ureteroscope was then passed through the ureteral access catheter sheath, up to the stone which was located within the right renal pelvis. The 272 micron Holmium laser probe was passed through the ureteroscope, and lithotripsy was performed. Dusting mode was utilized, and as the calculus became smaller it refluxed into a mid pole calyx. Lithotripsy was completed within that calyx, and all calculus fragments were removed using a 1.5-German nitinol basket. Pullout ureteroscopy showed no evidence of ureteral injury. The patient tolerated the procedure well and was taken to the recovery room in stable condition. [facility] [employer] Report: Procedure Acuity: Elective Stone Size and Location: 6 mm, right renal pelvis Ureteral Dilation: No Ureteral Access Sheath Used: Yes Stone Sent for Analysis: Yes All Stones/Fragments Were Removed with a Basket: Yes Complications: No Preoperative Antibiotics Given: Yes Stent Placed: No Discharge Medications: Zofran
--- NOTE | 2022-11-03 14:56 | FL ---
Intraoperative/procedural fluoroscopic services were provided for right renal calculus lithotripsy. T otal fluoroscopy time is 6 seconds with a total of 1 submitted image to PACS. Total DAP 0.6870. Johnny rico see the operative note for further details.
[2022-11-03 15:06] VITALS: TEMP 97.1
[2022-11-03 15:57] VITALS: BP 158/88; PULSE 64; RESP 15
== END 2022-11-03 16:17 | disposition home or self-care (01) ==
LOC: OR 10:36
PROVIDERS: ATTEND Urology
DX: N13.2 Hydronephrosis with renal and ureteral calculous obstruction (principal); D72.829 Elevated white blood cell count, unspecified; Z87.440 Personal history of urinary (tract) infections; B96.1 Klebsiella pneumoniae [K. pneumoniae] as the cause of diseases classified elsewhere; I10 Essential (primary) hypertension; G47.33 Obstructive sleep apnea (adult) (pediatric); M19.90 Unspecified osteoarthritis, unspecified site; K21.9 Gastro-esophageal reflux disease without esophagitis; E03.9 Hypothyroidism, unspecified; F41.9 Anxiety disorder, unspecified; G43.909 Migraine, unspecified, not intractable, without status migrainosus; Z85.828 Personal history of other malignant neoplasm of skin; D64.9 Anemia, unspecified; Z96.653 Presence of artificial knee joint, bilateral; Z90.49 Acquired absence of other specified parts of digestive tract; Z79.899 Other long term (current) drug therapy; Z88.1 Allergy status to other antibiotic agents; Z88.5 Allergy status to narcotic agent; Z91.011 Allergy to milk products
CPT/HCPCS: 85025; 82365; 74018; 52356; C1769; J2250; J1100; J0690; J2405; J3010; J1885; J2704; J2001

== ENCOUNTER → 2023-02-14 | Outpatient (CLI) | payer MEDICARE, OTHER ==
--- NOTE | 2023-02-14 19:48 | US ---
EXAMINATION TYPE: US kidneys/renal and bladder DATE OF EXAM: 02/14/2023 COMPARISON: CT 10/07/2022 CLINICAL INDICATION: Female, 72 years old with history of N20.0 CALCULUS OF KIDNEYS; Follow up for re cently removed kidney stone EXAM MEASUREMENTS: Right Kidney: 10.0 x 4.5 x 4.6 cm Left Kidney: 9.7 x 4.5 x 4.5 cm Right Kidney: wnl Left Kidney: wnl Bladder: wnl Bilateral Jets seen: yes IMPRESSION: Resolution of previous hydronephrosis.
== END | disposition home or self-care (01) ==
LOC: RADUSWWP 14:12
PROVIDERS: ATTEND Urology
DX: N20.0 Calculus of kidney (principal)
CPT/HCPCS: 76770

== ENCOUNTER 2023-12-29 15:02 | Observation (INO) | payer OTHER ==
--- NOTE | 2023-12-29 15:33 | ED ---
Recheck HPI - General Source: patient, RN notes reviewed Mode of arrival: ambulatory Limitations: no limitations - History of Present Illness Complaint: abnormal lab <Mariah Byrnes - Last Filed: 12/29/23 15:31> - General Source: patient, RN notes reviewed Mode of arrival: ambulatory Limitations: no limitations - History of Present Illness MD Complaint: abnormal lab <Regi Hernandez - Last Filed: 12/29/23 18:03> - General Chief Complaint: Recheck/Abnormal Lab/Rx Stated Complaint: Low hemoglobin, sent by PCP for transfusion Time Seen by Provider: 12/29/23 15:31 - History of Present Illness Initial Comments: Quick Note: This is a 73-year-old female who presents to the emergency department for low hemoglobin. States that she had blood work done yesterday and she received a phone call today saying that her hemoglobin was 6.7 and she needed to come to the emergency department for evaluation. Denies any history o f low hemoglobin levels. Not taking any blood thinners. Denies any blood in her stool or dark/tarry stools. (Mariah Byrnes) This is a 73-year-old female with a past medical history hypothyroidism hypertension who presents to the emergency department chief complaint of abn ormal labs. Patient states that she was informed by her primary care provider that she had a hemoglobin of 6.7 and reports emergency department for further evaluation. Patient establish care with a new PCP where routine labs were ordered. Patient states of the past few weeks she has been feeling fatigued, malaise, and experiencing dyspnea on exertion. she states that she has been feeling nauseous with abdominal pain after eating meals and will have episodes of emesis almost daily. She denies hematochezia, dark or tarry stools, hememesis. She denies drug or alcohol use. States she was taking up to 400 mg a day of motrin for chronic back pain, but has not taken any NSAIDs over the last few weeks. denies history of GI bleeds, diverticulitis, or diverticulosis (Regi Hernandez) - Related Data Home Medications Medication Instructions Recorded Confirmed ALPRAZolam [Xanax] 0.5 mg PO TID PRN 10/07/22 12/29/23 Levothyroxine Sodium 150 mcg PO DAILY 10/07/22 12/29/23 Naratriptan HCl [Amerge] 2.5 mg PO BID PRN MDD 5 mg 10/07/22 12/29/23 amLODIPine [Norvasc] 5 mg PO DAILY 10/07/22 12/29/23 Zolpidem [Ambien] 5 mg PO DIRECTED PRN 12/29/23 12/29/23 buPROPion XL [Wellbutrin XL] 150 mg PO DAILY 12/29/23 12/29/23 buPROPion XL [Wellbutrin XL] 300 mg PO DIRECTED 12/29/23 12/29/23 traZODone HCL [Desyrel] 25 - 50 mg PO DIRECTED PRN 12/29/23 12/29/23 Allergies Allergy/AdvReac Type Severity Reaction Status Date / Time ciprofloxacin [From Cipro] Allergy Dyspnea Verified 12/29/23 17:53 ciprofloxacin HCl Allergy Dyspnea Verified 12/29/23 17:53 [From Cipro] Opioids - Morphine Analogues Allergy see comment Verified 12/29/23 17:53 milk AdvReac Nausea & Verified 12/29/23 17:53 Vomiting & Diarrhea Review of Systems ROS Other: All systems not noted in ROS Statement are negative. <Mariah Byrnes - Last Filed: 12/29/23 15:31> ROS Other: All systems not noted in ROS Statement are negative. <Regi Hernandez - Last Filed: 12/29/23 18:03> ROS Statement: Those systems with pertinent positive or pertinent negative responses have been documented in the HPI. Past Medical History Past Medical History: Cancer, GERD/Reflux, Hypertension, Osteoarthritis (OA), Sleep Apnea/CPAP/BIPAP, Thyroid Disorder Additional Past Medical History / Comment(s): migraines,diverticulitis, urgency with bowel movements after eatting, hiatal hernia, no cpap used, anemia, hx skin cancer History of Any Multi-Drug Resistant Organisms: None Reported Past Surgical History: Orthopedic Surgery Additional Past Surgical History / Comment(s): deon knee replacements, rt foot surgery, back surgery x 2, rt knee arthroscopy, Past Anesthesia/Blood Transfusion Reactions: Motion Sickness Additional Past Anesthesia/Blood Transfusion Reaction / Comment(s): hx car sick when younger, Past Psychological History: Anxiety Smoking Status: Never smoker - Past Family History Mother Family Medical History: No Reported History <Mariah Byrnes - Last Filed: 12/29/23 15:31> General Exam Limitations: no limitations <Mariah Byrnes - Last Filed: 12/29/23 15:31> General appearance: alert, in no apparent distress, other (pallor) Head exam: Present: atraumatic, normocephalic, normal inspection Eye exam: Present: normal appearance, PERRL, EOMI. Absent: scleral icterus, conjunctival injection, periorbital swelling ENT exam: Present: normal exam, mucous membranes moist, other (pale palpebral conjunctiva) Neck exam: Present: normal inspection. Absent: tenderness, meningismus, lymphadenopathy Respiratory exam: Present: normal lung sounds bilaterally. Absent: respiratory distress, wheezes, rales, rhonchi, stridor Cardiovascular Exam: Present: regular rate, normal rhythm, normal heart sounds. Absent: systolic murmur, diastolic murmur, rubs, gallop, clicks GI/Abdominal exam: Present: soft, normal bowel sounds. Absent: distended, tenderness, guarding, rebound, rigid Extremities exam: Present: normal inspection, full ROM, normal capillary refill. Absent: tenderness, pedal edema, joint swelling, calf tenderness Back exam: Present: normal inspection Neurological exam: Present: alert, oriented X3, CN II-XII intact Psychiatric exam: Present: normal affect, normal mood Skin exam: Present: warm, dry, intact, normal color, pallor. Absent: rash <Regi Hernandez - Last Filed: 12/29/23 18:03> - General Exam Comments Initial Comments: Visual Physical Exam Vital signs reviewed General: Well-appearing, nontoxic, no acute distress. Head: Normocephalic, atraumatic Eyes: PERRLA, EOMI ENT: Airway patent Chest: Nonlabored breathing Skin: No visual rash, normal skin tone Neuro: Alert and oriented 3 Musculoskeletal: No gross abnormalities (Mariah Byrnes) Course Vital Signs 12/29/23 15:18 Temperature 98.3 F Pulse Rate 100 Respiratory 20 Rate Blood Pressure 147/81 O2 Sat by Pulse 97 Oximetry Medical Decision Making <Mariah Byrnes - Last Filed: 12/29/23 15:31> - Lab Data Result diagrams: 12/29/23 15:28 12/29/23 15:28 <Regi Hernandez - Last Filed: 12/29/23 18:03> - Medical Decision Making I performed the QuickNote portion of this chart. Signed Mariah Byrnes PA-C. (Mariah Byrnes) Was pt. sent in by a medical professional or institution (CARRI Pedersen, RETAIL SHIFT SUPERVISOR, urgent care, hospital, or retirement...) When possible be specific @ -Was advised by her primary care provider Dr. Allred reports emergency department for evaluation of a hemoglobin of 6.7. Did you speak to anyone other than the patient for history (EMS, parent, family, police, friend...)? What history was obtained from this source @ -Today patient's daughter at bedside states that her mother has been short of breath over the past few weeks with difficulty ambulating due to this. Did you review nursing and triage notes (agree or disagree)? Why? @ -I reviewed and agree with nursing and triage notes Were old charts reviewed (outside hosp., previous admission, EMS record, old EKG, old radiological studies, urgent care reports/EKG's, retirement records)? Report findings @ -No old charts were reviewed Differential Diagnosis (chest pain, altered mental status, abdominal pain women, abdominal pain men, vaginal bleeding, weakness, fever, dyspnea, syncope, headache, dizziness, GI bleed, back pain, seizure, CVA, palpatations, mental health, musculoskeletal)? @ - Esophageal varices, aortoenteric fistula, Crys-Reyes, gastritis, peptic ulcer disease, diverticulosis, inflammatory bowel disease, hemorrhoids, fissure, colitis, malignancy, Meckels diverticulum, this is not meant to be an all- inclusive list. EKG interpreted by me (3pts min.). @ -completed at 1528, sinus rhythm, ventricular rate 99, OK interval 147, QTc 402. No acute signs of ischemia. X-rays interpreted by me (1pt min.). @ -None done CT interpreted by me (1pt min.). @ -None done U/S interpreted by me (1pt. min.). @ -None done What testing was considered but not performed or refused? (CT, X-rays, U/S, labs)? Why? @ -None What meds were considered but not given or refused? Why? @ -None Did you discuss the management of the patient with other professionals (professionals i.e. DrNick, PA, RETAIL SHIFT SUPERVISOR, lab, RT, psych nurse, social service worker, asphalt paving machine operator, teacher, vessel traffic officer, returned case inspector)? Give summary @ -Spoke with [facility] Dr. aMdsen, regard to admission the patient due to a hemoglobin of 7.1. Patient was accepted for admission. Was smoking cessation discussed for >3mins.? @ -No Was critical care preformed (if so, how long)? @ -No Were there social determinants of health that impacted care today? How? (Homelessness, low income, unemployed, alcoholism, drug addiction, transportation, low edu. Level, literacy, decrease access to med. care, care home, rehab)? @ -No Was there de-escalation of care discussed even if they declined (Discuss DNR or withdrawal of care, Hospice)? DNR status @ -No What co-morbidities impacted this encounter? (DM, HTN, Smoking, COPD, CAD, Cancer, CVA, ARF, Chemo, Hep., AIDS, mental health diagnosis, sleep apnea, morbid obesity)? @ -Hypertension Was patient admitted / discharged? Hospital course, mention meds given and route, prescriptions, significant lab abnormalities, going to OR and other pertinent info. @ -Admitted. 73-year-old female with abnormal labs. On examination patient seemed to have a pallor.. There are no acute cardiopulmonary or GI findings on examination. Patient was evaluated as a quick note labs were ordered. Reviewed patient's labs which reveals a hemoglobin of 7.1 which is increased as compared to yesterday as above 6.7. CMP unremarkable. At this time I spoke with internal medicine team To admission, patient is accepted. Spoke with Dr. Burch Undiagnosed new problem with uncertain prognosis? @ -No Drug Therapy requiring intensive monitoring for toxicity (Heparin, Nitro, Insulin, Cardizem)? @ -No Were any procedures done? @ -No Diagnosis/symptom? @ -Low hemoglobin Acute, or Chronic, or Acute on Chronic? @ -Acute Uncomplicated (without systemic symptoms) or Complicated (systemic symptoms)? @ -uncomplicated Side effects of treatment? @ -No Exacerbation, Progression, or Severe Exacerbation? @ -No Poses a threat to life or bodily function? How? (Chest pain, [place], [place], pneumonia, PE, COPD, DKA, ARF, appy, cholecystitis, CVA, Diverticulitis, Homicidal, Suicidal, threat to staff... and all critical care pts) @ -No (Regi Hernandez) - Lab Data Lab Results 12/29/23 12/29/23 12/29/23 Range/Units 13:20 15:28 15:28 WBC 5.6 (3.8-10.6) k/uL RBC 3.93 (3.80-5.40) m/uL Hgb 7.1 L (11.4-16.0) gm/dL Hct 25.7 L (34.0-46.0) % MCV 65.5 L (80.0-100.0) fL MCH 18.1 L (25.0-35.0) pg MCHC 27.6 L (31.0-37.0) g/dL RDW 17.9 H (11.5-15.5) % Plt Count 386 (150-450) k/uL MPV 7.6 Neutrophils % 70 % Lymphocytes % 18 % Monocytes % 6 % Eosinophils % 2 % Basophils % 1 % Neutrophils # 3.9 (1.3-7.7) k/uL Lymphocytes # 1.0 (1.0-4.8) k/uL Monocytes # 0.4 (0-1.0) k/uL Eosinophils # 0.1 (0-0.7) k/uL Basophils # 0.0 (0-0.2) k/uL Hypochromasia Marked Poikilocytosis Slight Anisocytosis Slight Microcytosis Marked PT 10.3 (10.0-12.5) sec INR 0.9 (<1.2) APTT 22.0 (22.0-30.0) sec Sodium (137-145) mmol/L Potassium (3.5-5.1) mmol/L Chloride (98-107) mmol/L Carbon Dioxide (22-30) mmol/L Anion Gap mmol/L BUN (7-17) mg/dL Creatinine (0.52-1.04) mg/dL Est GFR (CKD-EPI)AfAm (>60 ml/min/1.73 sqM) Est GFR (CKD-EPI)NonAf (>60 ml/min/1.73 sqM) Glucose (74-99) mg/dL Calcium (8.4-10.2) mg/dL Total Bilirubin (0.2-1.3) mg/dL AST (14-36) U/L ALT (4-34) U/L Alkaline Phosphatase (38-126) U/L Total Protein (6.3-8.2) g/dL Albumin (3.5-5.0) g/dL Blood Type Blood Type Confirm O Positive Blood Type Recheck Bld Type Recheck Status Antibody Screen Spec Expiration Date 12/29/23 12/29/23 Range/Units 15:28 15:30 WBC (3.8-10.6) k/uL RBC (3.80-5.40) m/uL Hgb (11.4-16.0) gm/dL Hct (34.0-46.0) % MCV (80.0-100.0) fL MCH (25.0-35.0) pg MCHC (31.0-37.0) g/dL RDW (11.5-15.5) % Plt Count (150-450) k/uL MPV Neutrophils % % Lymphocytes % % Monocytes % % Eosinophils % % Basophils % % Neutrophils # (1.3-7.7) k/uL Lymphocytes # (1.0-4.8) k/uL Monocytes # (0-1.0) k/uL Eosinophils # (0-0.7) k/uL Basophils # (0-0.2) k/uL Hypochromasia Poikilocytosis Anisocytosis Microcytosis PT (10.0-12.5) sec INR (<1.2) APTT (22.0-30.0) sec Sodium 139 (137-145) mmol/L Potassium 4.3 (3.5-5.1) mmol/L Chloride 108 H (98-107) mmol/L Carbon Dioxide 21 L (22-30) mmol/L Anion Gap 10 mmol/L BUN 17 (7-17) mg/dL Creatinine 1.00 (0.52-1.04) mg/dL Est GFR (CKD-EPI)AfAm 66 (>60 ml/min/1.73 sqM) Est GFR (CKD-EPI)NonAf 57 (>60 ml/min/1.73 sqM) Glucose 116 H (74-99) mg/dL Calcium 9.1 (8.4-10.2) mg/dL Total Bilirubin 0.6 (0.2-1.3) mg/dL AST 29 (14-36) U/L ALT 15 (4-34) U/L Alkaline Phosphatase 110 (38-126) U/L Total Protein 7.4 (6.3-8.2) g/dL Albumin 4.4 (3.5-5.0) g/dL Blood Type O Positive Blood Type Confirm Blood Type Recheck No Previous Record Bld Type Recheck Status CABO Indicated Antibody Screen NEGATIVE Spec Expiration Date 01/01/2024 - 2329 Disposition <Mariah Byrens - Last Filed: 12/29/23 15:31> Is patient prescribed a controlled substance at d/c from ED?: No Decision to Admit Reason: Admit from EC Decision Date: 12/29/23 Decision Time: 17:03 <Regi Henrandez - Last Filed: 12/29/23 18:03> Clinical Impression: Low hemoglobin Disposition: ADMITTED IP TO THIS HOSP Condition: Good
[2023-12-29 16:01] LABS: Anisocytosis Slight; Basophils % (A) 1 %; Eosinophils # (A) 0.1 k/uL (0-0.7); Eosinophils % (A) 2 %; HCT 25.7 % (34.0-46.0); HGB 7.1 gm/dL (11.4-16.0); Hypochromasia Marked; Lymphocytes % (A) 18 %; MCH 18.1 pg (25.0-35.0); MCHC 27.6 g/dL (31.0-37.0); MCV 65.5 fL (80.0-100.0); Mean Platelet Volume 7.6; Microcytosis Marked; Monocytes # (A) 0.4 k/uL (0-1.0); Monocytes % (A) 6 %; Neutrophils # (A) 3.9 k/uL (1.3-7.7); Neutrophils % (A) 70 %; Platelet Count 386 k/uL (150-450); Poikilocytosis Slight; RBC 3.93 m/uL (3.80-5.40); RDW 17.9 % (11.5-15.5); WBC 5.6 k/uL (3.8-10.6)
[2023-12-29 16:23] LABS: ALT 15 U/L (4-34); AST 29 U/L (14-36); African American GFR (CKD) 66 (>60 ml/min/1.73 sqM); Albumin 4.4 g/dL (3.5-5.0); Alkaline Phosphatase 110 U/L (38-126); Anion Gap 10 mmol/L; Blood Urea Nitrogen 17 mg/dL (7-17); Calcium 9.1 mg/dL (8.4-10.2); Carbon Dioxide 21 mmol/L (22-30); Chloride 108 mmol/L (98-107); Glucose 116 mg/dL (74-99); Non-African American GFR(CKD) 57 (>60 ml/min/1.73 sqM); Potassium 4.3 mmol/L (3.5-5.1); Sodium 139 mmol/L (137-145); Total Bilirubin 0.6 mg/dL (0.2-1.3); Total Protein 7.4 g/dL (6.3-8.2)
[2023-12-29 16:35] LABS: INR 0.9 (<1.2); Prothrombin Time 10.3 sec (10.0-12.5)
[2023-12-29] MEDS ORDERED: NALOXONE 0.4 MG/ML 1 ML VIAL IV PRN ×2 (16:55)
[2023-12-29] MEDS ORDERED: IBUPROFEN 400 MG TAB PO PRN (16:55)
[2023-12-29] MEDS ORDERED: ACETAMINOPHEN TAB 325 MG TAB PO PRN ×2 (16:55)
[2023-12-29] MEDS ORDERED: ONDANSETRON 4 MG/2 ML VIAL IVP PRN (16:55)
--- NOTE | 2023-12-29 17:46 | P.HPIM ---
History of Present Illness H&P Date: 12/29/23 Chief Complaint: anemia 73-year-old woman with medical history of hypertension, hypothyroidism, iron deficiency anemia noncompliant with her iron supplements presented for [place]sorio [place]de of anemia. Patient says that for several months she has been having dyspnea on exertion, significant fatigue, mood issues including depression, as well as numbness and paresthesias in all 4 extremities. Her daughter is at bedside and also supplements history and tells me that patient has been prone to falls, and thus far has been able to get up. Patient recently switched primary care provider from Dr. Montalvo to Luiza Jackson NP. At her most recent health maintenance exam, her new provider ordered CBC, and notified patient of the results last night, indicating that patient needed to go to the emergency room for finding of low hemoglobin down to 6.7. Patient was subsequently brought into the hospital at the request of her daughter, overall feels her mood has been down. Otherwise, denies fevers, chills. Does report nausea, vomiting for many many years following meals along with associated diarrhea. She denies abdominal pain, constipation, diarrhea. Notably, she denies bleeding from her vagina, melenic stools, hematochezia, coffee-ground emesis. In the emergency room, patient was afebrile, 147/81, heart rate 100, 97% on room air. CBC was remarkable for hemoglobin of 7.1, MCV of 65.5. Basic metabolic panel was unremarkable. Coags are unremarkable. LFTs are unremarkable. No imaging to review. All Systems reviewed and pertinent positives and negatives noted in HPI, all other symptoms are negative Gen: in no apparent distress, resting comfortably in bed Eyes: PERRL, no scleral injection or icterus, pallor is noted HENT: normocephalic, atraumatic, good hearing acuity, moist mucous membranes Neck: no tracheal deviation, full range of motion Resp: good air exchange, breathing comfortably with no accessory muscle use, no tactile fremitus CVS: good distal perfusion x 4, no pitting edema GI: soft, NTTP, ND, no hepatosplenomegaly : no suprapubic tenderness, no CVAT, franklin catheter not present MSK: no clubbing, no cyanosis, no noted contractures of extremities Skin: no noted rashes, petechiae; temperature of skin is appropriate Neuro: moving all extremities without signs of weakness, CN II-XII intact Psych: cooperative, euthymic mood, insight and judgment intact Labs and imaging as above Assessment/plan: Iron deficiency anemia, noncompliant with medication -Patient was admitted to observation -Iron panel, ferritin, LDH -Transfuse if hemoglobin tomorrow morning is less than 7 -Patient will be started on iron supplementation by oral route, first time awaiting iron studies -Patient was counseled on the need for malignancy rule out via endosc opy/colonoscopy, will send outpatient referral upon discharge Hypothyroidism -Check TSH with reflex to free T4 -Resume levothyroxine Hypertension -Resume amlodipine once home medications are confirmed Patient is full code Daughter is next of kin Past Medical History Past Medical History: Cancer, GERD/Reflux, Hypertension, Osteoarthritis (OA), Sleep Apnea/CPAP/BIPAP, Thyroid Disorder Additional Past Medical History / Comment(s): migraines,diverticulitis, urgency with bowel movements after eatting, hiatal hernia, no cpap used, anemia, hx skin cancer History of Any Multi-Drug Resistant Organisms: None Reported Past Surgical History: Orthopedic Surgery Additional Past Surgical History / Comment(s): deon knee replacements, rt foot surgery, back surgery x 2, rt knee arthroscopy, Past Anesthesia/Blood Transfusion Reactions: Motion Sickness Additional Past Anesthesia/Blood Transfusion Reaction / Comment(s): hx car sick when younger, Past Psychological History: Anxiety Smoking Status: Never smoker - Past Family History Mother Family Medical History: No Reported History Medications and Allergies Home Medications Medication Instructions Recorded Confirmed Type ALPRAZolam [Xanax] 0.5 mg PO TID PRN 10/07/22 11/03/22 History Levothyroxine Sodium 150 mcg PO DAILY 10/07/22 11/03/22 History Naratriptan HCl [Amerge] 2.5 mg PO BID PRN MDD 5 mg 10/07/22 11/03/22 History amLODIPine [Norvasc] 5 mg PO DAILY 10/07/22 11/03/22 History Sulfamethoxazole/Trimethoprim 1 tab PO BID 10/28/22 11/03/22 History [Sulfamethoxazole-Tmp Ds Tablet] Allergies Allergy/AdvReac Type Severity Reaction Status Date / Time ciprofloxacin [From Cipro] Allergy Dyspnea Verified 11/03/22 11:39 ciprofloxacin HCl Allergy Dyspnea Verified 11/03/22 11:39 [From Cipro] Opioids - Morphine Analogues Allergy Unknown Verified 11/03/22 11:39 milk AdvReac Nausea & Verified 11/03/22 11:39 Vomiting & Diarrhea Physical Exam Osteopathic Statement: *. No significant issues noted on an osteopathic structural exam other than those noted in the History and Physical/Consult. Vitals: Vital Signs Temp Pulse Resp BP Pulse Ox 12/29/23 15:18 98.3 F 100 20 147/81 97 Intake and Output 12/29/23 12/29/23 12/29/23 06:59 14:59 22:59 Other: Weight 90.265 kg Results CBC & Chem 7: 12/29/23 15:28 12/29/23 15:28 Labs: Abnormal Lab Results - Last 24 Hours (Table) 12/29/23 12/29/23 Range/Units 15:28 15:28 Hgb 7.1 L (11.4-16.0) gm/dL Hct 25.7 L (34.0-46.0) % MCV 65.5 L (80.0-100.0) fL MCH 18.1 L (25.0-35.0) pg MCHC 27.6 L (31.0-37.0) g/dL RDW 17.9 H (11.5-15.5) % Chloride 108 H (98-107) mmol/L Carbon Dioxide 21 L (22-30) mmol/L Glucose 116 H (74-99) mg/dL
[2023-12-29 20:48] LABS: Appearance,Urine Cloudy (Clear); Bacteria,Urine Moderate /hpf; Bilirubin,Urine Negative (Negative); Blood,Urine Negative (Negative); Calcium Oxalate Crystals,Urine Occasional /hpf; Color,Urine Yellow; Glucose,Urine (UA) Negative (Negative); Hyaline Casts,Urine 10 /lpf (0-2); Ketones,Urine Negative (Negative); Leukocyte Esterase,Urine Moderate (Negative); Mucus,Urine Few /hpf; Nitrite,Urine Positive (Negative); PH, Urine 5.5 (5.0-8.0); Protein,Urine Trace (Negative); RBC,Urine 3 /hpf (0-5); Specific Gravity,Urine 1.022 (1.001-1.035); Squamous Epithelial Cell,Urine 8 /hpf (0-4); Urobilinogen,Urine <2.0 mg/dL (<2.0); WBC,Urine 16 /hpf (0-5)
[2023-12-29] MEDS: ZOLPIDEM 5 MG TAB PO STA (21:40)
[2023-12-30 04:53] LABS: % Iron Saturation 2.21 (12.00-45.00); Ferritin 4.3 ng/mL (10.0-291.0)
[2023-12-30 07:53] LABS: African American GFR (CKD) 61 (>60 ml/min/1.73 sqM); Anion Gap 4 mmol/L; Blood Urea Nitrogen 21 mg/dL (7-17); Calcium 8.6 mg/dL (8.4-10.2); Carbon Dioxide 25 mmol/L (22-30); Chloride 110 mmol/L (98-107); Glucose 98 mg/dL (74-99); LDH 136 U/L (120-246); Non-African American GFR(CKD) 53 (>60 ml/min/1.73 sqM); Sodium 139 mmol/L (137-145)
[2023-12-30 10:04] LABS: Basophils # (A) 0.05 X 10*3/uL (0.00-0.10); Basophils % (A) 0.8 %; Eosinophils # (A) 0.16 X 10*3/uL (0.04-0.35); Eosinophils % (A) 2.4 %; HCT 20.8 % (37.2-46.3); HGB 5.8 g/dL (12.0-15.0); Lymphocytes # (A) 1.37 X 10*3/uL (0.90-5.00); Lymphocytes % (A) 20.9 %; MCHC 27.9 g/dL (32.0-37.0); MCV 64.6 FL (80.0-97.0); Mean Platelet Volume 10.2 FL (9.5-12.2); Monocytes # (A) 0.62 X 10*3/uL (0.20-1.00); Monocytes % (A) 9.4 %; NRBC Per 100 WBC 0 X 10*3/uL (0.00-0.01); Neutrophils # (A) 4.36 X 10*3/uL (1.80-7.70); Neutrophils % (A) 66.3 %; Platelet Count 356 X 10*3/uL (140-440); RBC 3.22 X 10*6/uL (4.10-5.20); RDW 18.5 % (11.5-14.5); WBC 6.57 X 10*3/uL (4.50-10.00)
[2023-12-30] MEDS: LEVOTHYROXINE 75 MCG TAB PO SCH (12:16)
[2023-12-30] MEDS: buPROPion XL 300 MG TAB.ER.24H PO SCH (12:17)
[2023-12-30 12:20] LABS: INR 0.98 sec (0.93-1.11); Prothrombin Time 10.6 sec (9.9-11.9)
[2023-12-30] MEDS: SODIUM FERRIC GLUCONAT-SUCROSE 125 MG in SODIUM CHLORIDE 0.9% 100 ML IVPB ONE (13:16)
--- NOTE | 2023-12-30 16:31 | P.PN ---
Subjective Progress Note Date: 12/30/23 No new complaints today. Hgb was 5.8. Transfusing 1U PRBC. Iron level is low, ferritin low, transferrin high. Gen: in no apparent distress, resting comfortably in bed Eyes: PERRL, no scleral injection or icterus, pallor is noted HENT: normocephalic, atraumatic, good hearing acuity, moist mucous membranes Neck: no tracheal deviation, full range of motion Resp: good air exchange, breathing comfortably with no accessory muscle use, no tactile fremitus CVS: good distal perfusion x 4, no pitting edema GI: soft, NTTP, ND, no hepatosplenomegaly : no suprapubic tenderness, no CVAT, franklin catheter not present MSK: no clubbing, no cyanosis, no noted contractures of extremities Skin: no noted rashes, petechiae; temperature of skin is appropriate Neuro: moving all extremities without signs of weakness, CN II-XII intact Psych: cooperative, euthymic mood, insight and judgment intact Hospital Course: 73-year-old woman with medical history of hypertension, hypothyroidism, iron deficiency anemia noncompliant with her iron supplements presented for evaluation of anemia. In the emergency room, patient was afebrile, 147/81, heart rate 100, 97% on room air. CBC was remarkable for hemoglobin of 7.1, MCV of 65.5. Basic metabolic panel was unremarkable. Coags are unremarkable. LFTs are unremarkable. No imaging to review. Assessment/plan: Iron deficiency anemia, noncompliant with medication -Patient was admitted to observation -Iron panel, ferritin, LDH = c/w iron deficiency anemia -Transfuse if hemoglobin tomorrow morning is less than 7 -Patient will be started on iron supplementation by oral route, first time awaiting iron studies -Patient was counseled on the need for malignancy rule out via endoscopy/colonoscopy, will send outpatient referral upon discharge Hypothyroidism -Check TSH with reflex to free T4 = 3.2 -Resume levothyroxine Hypertension -Resume amlodipine once home medications are confirmed Patient is full code Daughter is next of kin Objective - Vital Signs Vital signs: Vital Signs Temp 97.7 F 12/30/23 15:08 Pulse 82 12/30/23 15:08 Resp 16 12/30/23 15:08 BP 125/81 12/30/23 15:08 Pulse Ox 96 12/30/23 15:00 FiO2 Intake & Output 12/29/23 12/30/23 12/30/23 18:59 06:59 18:59 Intake Total 520 Balance 520 Weight 90.265 kg Intake: Oral 236 Blood Product 284 Rc Pheresis 2 As3 Unit 284 [id number] Other: Voiding Method Toilet # Voids 2 1 - Labs CBC & Chem 7: 12/30/23 06:43 12/30/23 06:43 Labs: Abnormal Lab Results - Last 24 Hours (Table) 12/29/23 12/29/23 12/29/23 Range/Units 15:30 15:55 20:30 RBC (4.10-5.20) X 10*6/uL Hgb (12.0-15.0) g/dL Hct (37.2-46.3) % MCV (80.0-97.0) FL MCH (27.0-32.0) pg MCHC (32.0-37.0) g/dL RDW (11.5-14.5) % Chloride (98-107) mmol/L BUN (7-17) mg/dL Creatinine (0.52-1.04) mg/dL Iron 12 L (50-170) UG/DL TIBC 542 H (228-460) UG/DL % Saturation 2.21 L (12.00-45.00) Transferrin 387.0 H (204.0-354.0) mg/dL Ferritin 4.3 L (10.0-291.0) ng/mL Urine Appearance Cloudy H (Clear) Urine Protein Trace H (Negative) Urine Nitrite Positive H (Negative) Ur Leukocyte Esterase Moderate H (Negative) Urine WBC 16 H (0-5) /hpf Ur Squamous Epith Cells 8 H (0-4) /hpf Calcium Oxalate Crystal Occasional H (None) /hpf Urine Bacteria Moderate H (None) /hpf Hyaline Casts 10 H (0-2) /lpf Urine Mucus Few H (None) /hpf Crossmatch See Detail 12/30/23 12/30/23 Range/Units 06:43 06:43 RBC 3.22 L (4.10-5.20) X 10*6/uL Hgb 5.8 A* (12.0-15.0) g/dL Hct 20.8 L (37.2-46.3) % MCV 64.6 L (80.0-97.0) FL MCH 18.0 L (27.0-32.0) pg MCHC 27.9 L (32.0-37.0) g/dL RDW 18.5 H (11.5-14.5) % Chloride 110 H (98-107) mmol/L BUN 21 H (7-17) mg/dL Creatinine 1.07 H (0.52-1.04) mg/dL Iron (50-170) UG/DL TIBC (228-460) UG/DL % Saturation (12.00-45.00) Transferrin (204.0-354.0) mg/dL Ferritin (10.0-291.0) ng/mL Urine Appearance (Clear) Urine Protein (Negative) Urine Nitrite (Negative) Ur Leukocyte Esterase (Negative) Urine WBC (0-5) /hpf Ur Squamous Epith Cells (0-4) /hpf Calcium Oxalate Crystal (None) /hpf Urine Bacteria (None) /hpf Hyaline Casts (0-2) /lpf Urine Mucus (None) /hpf Crossmatch
[2023-12-30 21:06] LABS: Anisocytosis Slight; Basophils # (A) 0.1 k/uL (0-0.2); Basophils % (A) 1 %; Eosinophils # (A) 0.2 k/uL (0-0.7); Eosinophils % (A) 2 %; HCT 28.1 % (34.0-46.0); Hypochromasia Marked; Lymphocytes # (A) 1.6 k/uL (1.0-4.8); Lymphocytes % (A) 25 %; MCH 21.4 pg (25.0-35.0); MCHC 30.6 g/dL (31.0-37.0); MCV 69.9 fL (80.0-100.0); Mean Platelet Volume 8.7; Microcytosis Marked; Monocytes # (A) 0.3 k/uL (0-1.0); Monocytes % (A) 5 %; Neutrophils # (A) 4.2 k/uL (1.3-7.7); Neutrophils % (A) 64 %; Platelet Count 314 k/uL (150-450); Poikilocytosis Marked; RBC 4.02 m/uL (3.80-5.40); RDW 18.6 % (11.5-15.5); WBC 6.5 k/uL (3.8-10.6)
[2023-12-30 21:12] LABS: HGB 8.6 gm/dL (11.4-16.0)
[2023-12-30] MEDS: ZOLPIDEM 5 MG TAB PO STA (22:30)
[2023-12-31 07:57] VITALS: BP 117/80; PULSE 92; RESP 16; TEMP 97.7
[2023-12-31] MEDS: amLODIPine 5 MG TAB PO SCH (08:43)
[2023-12-31] MEDS ORDERED: buPROPion XL 150 MG TAB.ER.24H PO SCH (09:00)
[2023-12-31] MEDS: SODIUM FERRIC GLUCONAT-SUCROSE 125 MG in SODIUM CHLORIDE 0.9% 100 ML IVPB ONE (11:12)
--- NOTE | 2023-12-31 11:43 | P.DS ---
Providers Date of admission: 12/29/23 16:58 Expected date of discharge: 12/31/23 Attending physician: Mable Madsen MD Primary care physician: [facility] Course: Iron deficiency anemia, noncompliant with medication Hypothyroidism Hypertension Gen: in no apparent distress, resting comfortably in bed Eyes: PERRL, no scleral injection or icterus, pallor is noted HENT: normocephalic, atraumatic, good hearing acuity, moist mucous membranes Neck: no tracheal deviation, full range of motion Resp: good air exchange, breathing comfortably with no accessory muscle use, no tactile fremitus CVS: good distal perfusion x 4, no pitting edema GI: soft, NTTP, ND, no hepatosplenomegaly : no suprapubic tenderness, no CVAT, franklin catheter not present MSK: no clubbing, no cyanosis, no noted contractures of extremities Skin: no noted rashes, petechiae; temperature of skin is appropriate Neuro: moving all extremities without signs of weakness, CN II-XII intact Psych: cooperative, euthymic mood, insight and judgment intact Hospital Course: 73-year-old woman with medical history of hypertension, hypothyroidism, iron deficiency anemia noncompliant with her iron supplements presented for evaluation of anemia. In the emergency room, patient was afebrile, 147/81, heart rate 100, 97% on room air. CBC was remarkable for hemoglobin of 7.1, MCV of 65.5. Basic metabolic panel was unremarkable. Coags are unremarkable. LFTs are unremarkable. No imaging to review. Patient was admitted to observation had iron studies done which showed high transferrin, low ferritin, low saturation of 2.7, consistent with significant iron deficiency anemia. Pt's repeat CBC demonstrated low Hgb of 5.8. She was transfused 2U PRBCs, and her Hgb inproved to 8.6. She was given an iron transfusion prior to the day of discharge, then was discharged home with daily oral iron. She was instructed follow-up with primary care physician for repeat lab check and an order was placed for repeat CBC. She was also instructed to follow-up with gastroenterology for malignancy rule out by endoscopy/colonoscopy given her iron deficiency. Her TSH was also checked to rule out hypothyroidism as a component of anemia and this was normal at 3.2. I spent 34 minutes coordinating this discharge. Patient Condition at Discharge: Good Plan - Discharge Summary Discharge Rx Participant: No New Discharge Prescriptions: New Ferrous Sulfate [Iron (65 MG Elemental)] 325 mg PO W/LUNCH #30 tab Acetaminophen Tab [Tylenol] 650 mg PO Q6HR PRN tab PRN Reason: Mild Pain Or Fever > 100.5 Continue Levothyroxine Sodium 150 mcg PO DAILY ALPRAZolam [Xanax] 0.5 mg PO TID PRN PRN Reason: Anxiety buPROPion XL [Wellbutrin XL] 300 mg PO DIRECTED traZODone HCL [Desyrel] 25 - 50 mg PO DIRECTED PRN PRN Reason: insomnia amLODIPine [Norvasc] 5 mg PO DAILY Naratriptan HCl [Amerge] 2.5 mg PO BID PRN MDD 5 mg PRN Reason: Migraine Headache buPROPion XL [Wellbutrin XL] 150 mg PO DAILY Zolpidem [Ambien] 5 mg PO DIRECTED PRN PRN Reason: Insomnia Discharge Medication List ALPRAZolam [Xanax] 0.5 mg PO TID PRN 10/07/22 [History] Levothyroxine Sodium 150 mcg PO DAILY 10/07/22 [History] Naratriptan HCl [Amerge] 2.5 mg PO BID PRN MDD 5 mg 10/07/22 [History] amLODIPine [Norvasc] 5 mg PO DAILY 10/07/22 [History] Zolpidem [Ambien] 5 mg PO DIRECTED PRN 12/29/23 [History] buPROPion XL [Wellbutrin XL] 150 mg PO DAILY 12/29/23 [History] buPROPion XL [Wellbutrin XL] 300 mg PO DIRECTED 12/29/23 [History] traZODone HCL [Desyrel] 25 - 50 mg PO DIRECTED PRN 12/29/23 [History] Acetaminophen Tab [Tylenol] 650 mg PO Q6HR PRN tab 12/31/23 [Rx] Ferrous Sulfate [Iron (65 MG Elemental)] 325 mg PO W/LUNCH #30 tab 12/31/23 [Rx] Follow up Appointment(s)/Referral(s): Luiza Jackson NPC [STAFF PHYSICIAN] - 1 Week Ambulatory/Diagnostic Orders: Complete Blood Count w/diff [LAB.AMB] Time Frame: 1 Week, Facility: [facility], Location: Laboratory [facility] 1 Complete Blood Count w/diff [LAB.AMB] Time Frame: 1 Week, Location: None Selected Discharge Disposition: HOME SELF-CARE
[2023-12-31] MEDS: FERROUS SULFATE 325 MG TAB PO SCH (12:18)
== END 2023-12-31 13:50 | disposition home or self-care (01) ==
LOC: EC 15:02 → 6NMEDSUR 16:58
PROVIDERS: ADMIT Internal Medicine; ATTEND Internal Medicine
DX: D50.9 Iron deficiency anemia, unspecified (principal); E03.9 Hypothyroidism, unspecified; I10 Essential (primary) hypertension; Z91.148 Patient's other noncompliance with medication regimen for other reason; E03.2 Hypothyroidism due to medicaments and other exogenous substances; K21.9 Gastro-esophageal reflux disease without esophagitis; M19.90 Unspecified osteoarthritis, unspecified site; G47.30 Sleep apnea, unspecified; Z99.89 Dependence on other enabling machines and devices
CPT/HCPCS: 96365; 99285; 36415; 93005; 86900; 86901; 80053; 80048; 84443; 82728; 83540; 83550; 83615; 83735; 85025 ×2; 85610 ×2; 85730; 86850; 86920; 82272; 81001; G0378 ×3; P9016; J2916; 36430

== ENCOUNTER 2024-09-04 13:16 | Inpatient (IN) | payer MEDICARE, OTHER ==
--- NOTE | 2024-09-04 13:51 | ED ---
General Adult HPI - General Source: patient, RN notes reviewed <Regi Hernandez - Last Filed: 09/04/24 13:43> <Jacquelyn Stallworth - Last Filed: 09/07/24 20:02> - General Stated complaint: Vomiting, left flank pain, low hemoglobin Time Seen by Provider: 09/04/24 15:30 - History of Present Illness Initial comments: quick note- 73 year old female presenting to the emergency department for chief complaint of left side abdominal with radiation to the back over the past 24 hours. She reports associated nausea, vomiting, chills, and diarrhea. Denies dysuria, hematuria increase in urinary frequency or urgency. (Regi Hernandez) 73-year-old female presents emergency department with left-sided abdominal pain. States that the pain starts up in the left flank and radiates over to her left lower quadrant. She has associated nausea, vomiting, chills. Denies dysuria, hematuria. Admits she has increased frequency of urination however this is a constant for her. Patient has a fever which she was unaware of until she got to the hospital. She did not take any antipyretics today. Patient states the pain feels similar when she had previous kidney stones. She has had previous lithotripsy. Patient is status postcholecystectomy. No other alleviating, precipitating or modifying factors (Jacquelyn Stallworth) - Related Data Home Medications Medication Instructions Recorded Confirmed ALPRAZolam [Xanax] 0.5 mg PO TID PRN 10/07/22 09/04/24 Levothyroxine Sodium 150 mcg PO DAILY 10/07/22 09/04/24 Naratriptan HCl [Amerge] 2.5 mg PO BID PRN MDD 5 mg 10/07/22 09/04/24 amLODIPine [Norvasc] 5 mg PO DAILY 10/07/22 09/04/24 Phentermine HCl [Adipex-P] 37.5 mg PO DAILY 09/04/24 09/04/24 Zolpidem Tartrate [Ambien Cr] 6.25 mg PO HS 09/04/24 09/04/24 Previous Rx's Medication Instructions Recorded Acetaminophen-Codeine 300-30mg 1 tab PO Q4H PRN 3 Days #18 tablet 09/07/24 [Tylenol w/codeine #3] Cephalexin [Keflex] 500 mg PO Q6HR 14 Days #56 cap 09/07/24 Allergies Allergy/AdvReac Type Severity Reaction Status Date / Time ciprofloxacin [From Cipro] Allergy Dyspnea Verified 09/04/24 16:55 ciprofloxacin HCl Allergy Dyspnea Verified 09/04/24 16:55 [From Cipro] acetaminophen AdvReac Nausea & Verified 09/04/24 16:55 [From Tylenol-Codeine #3] Vomiting & Diarrhea codeine AdvReac Nausea & Verified 09/04/24 16:55 [From Tylenol-Codeine #3] Vomiting & Diarrhea hydrocodone [From [place]] AdvReac Nausea & Verified 09/04/24 16:55 Vomiting & Diarrhea milk AdvReac Nausea & Verified 09/04/24 16:55 Vomiting & Diarrhea Review of Systems ROS Other: All systems not noted in ROS Statement are negative. <Regi Hernandez - Last Filed: 09/04/24 13:43> ROS Other: All systems not noted in ROS Statement are negative. <Jacquelyn Stallworth - Last Filed: 09/07/24 20:02> ROS Statement: Those systems with pertinent positive or pertinent negative responses have been documented in the HPI. Past Medical History Past Medical History: Cancer, GERD/Reflux, Hypertension, Osteoarthritis (OA), Sleep Apnea/CPAP/BIPAP, Thyroid Disorder Additional Past Medical History / Comment(s): migraines,diverticulitis, urgency with bowel movements after eatting, hiatal hernia, no cpap used, anemia, hx skin cancer History of Any Multi-Drug Resistant Organisms: ESBL Date of last positivie culture/infection: 05/21/24 MDRO Source:: urine Past Surgical History: Orthopedic Surgery Additional Past Surgical History / Comment(s): deon knee replacements, rt foot surgery, back surgery x 2, rt knee arthroscopy, Past Anesthesia/Blood Transfusion Reactions: Motion Sickness Additional Past Anesthesia/Blood Transfusion Reaction / Comment(s): hx car sick when younger, Smoking Status: Former smoker - Past Family History Mother Family Medical History: No Reported History <Regi Hernandez - Last Filed: 09/04/24 13:43> General Exam <Regi Hernandez - Last Filed: 09/04/24 13:43> General appearance: alert, in no apparent distress Head exam: Present: atraumatic, normocephalic, normal inspection Eye exam: Present: normal appearance, PERRL, EOMI. Absent: scleral icterus, conjunctival injection, periorbital swelling ENT exam: Present: normal exam, mucous membranes moist Neck exam: Present: normal inspection. Absent: tenderness, meningismus, lymphadenopathy Respiratory exam: Present: normal lung sounds bilaterally. Absent: respiratory distress, wheezes, rales, rhonchi, stridor Cardiovascular Exam: Present: normal rhythm, tachycardia, normal heart sounds. Absent: systolic murmur, diastolic murmur, rubs, gallop, clicks GI/Abdominal exam: Present: soft, normal bowel sounds. Absent: distended, tenderness, guarding, rebound, rigid Extremities exam: Present: normal inspection, full ROM, normal capillary refill. Absent: tenderness, pedal edema, joint swelling, calf tenderness Back exam: Present: normal inspection Neurological exam: Present: alert, oriented X3, CN II-XII intact Psychiatric exam: Present: normal affect, normal mood Skin exam: Present: warm, dry, intact, normal color. Absent: rash <Jacquelyn Stallworth - Last Filed: 09/07/24 20:02> - General Exam Comments Initial Comments: Visual Physical Exam Vital signs reviewed General: Well-appearing, nontoxic, no acute distress. Head: Normocephalic, atraumatic Eyes: PERRLA, EOMI ENT: Airway patent Chest: Nonlabored breathing Skin: No visual rash, normal skin tone Neuro: Alert and oriented 3 Musculoskeletal: No gross abnormalities (Regi Hernandez) Course Vital Signs 09/04/24 09/04/24 09/04/24 13:58 15:32 18:02 Temperature 100.3 F H 99.9 F H Pulse Rate 110 H 96 96 Respiratory 18 18 18 Rate Blood Pressure 108/74 112/75 118/77 O2 Sat by Pulse 94 L 95 96 Oximetry Medical Decision Making <Regi Hernandez - Last Filed: 09/04/24 13:43> - Lab Data Result diagrams: 09/07/24 04:24 09/07/24 04:24 <Jacquelyn Stallworth - Last Filed: 09/07/24 20:02> - Medical Decision Making I completed the quick note portion of this chart signed Regi Hernandez PA-C (Regi Hernandez) Was pt. sent in by a medical professional or institution (, CARRI, WIND DEVELOPMENT DIRECTOR, urgent care, hospital, or fdc...) When possible be specific @ -No Did you speak to anyone other than the patient for history (EMS, parent, family, police, friend...)? What history was obtained from this source @ -No Did you review nursing and triage notes (agree or disagree)? Why? @ -I reviewed and agree with nursing and triage notes Were old charts reviewed (outside hosp., previous admission, EMS record, old EKG, old radiological studies, urgent care reports/EKG's, fdc records)? Report findings @ -No old charts were reviewed Differential Diagnosis (chest pain, altered mental status, abdominal pain women, abdominal pain men, vaginal bleeding, weakness, fever, dyspnea, syncope, headache, dizziness, GI bleed, back pain, seizure, CVA, palpatations, mental health, musculoskeletal)? @ -Ureteral stone, pyelonephritis, renal abscess, septic stone EKG interpreted by me (3pts min.). @ -Not done X-rays interpreted by me (1pt min.). @ -None done CT interpreted by me (1pt min.). @ -Yes which demonstrates a left-sided ureteral stone with moderate hydronephrosis U/S interpreted by me (1pt. min.). @ -None done What testing was considered but not performed or refused? (CT, X-rays, U/S, labs)? Why? @ -None What meds were considered but not given or refused? Why? @ -None Did you discuss the management of the patient with other professionals ( professionals i.e. , CARRI, WIND DEVELOPMENT DIRECTOR, lab, RT, psych nurse, social science teacher, card reader, teacher, officer captain, case management associate)? Give summary @ -Spoke with Dr. Goyal for procedure. Spoke with Dr. Ramirez for admission Was smoking cessation discussed for >3mins.? @ -No Was critical care preformed (if so, how long)? @ -Yes, 35 minutes Were there social determinants of health that impacted care today? How? (H omelessness, low income, unemployed, alcoholism, drug addiction, transportation, low edu. Level, literacy, decrease access to med. care, senior care, rehab)? @ -No Was there de-escalation of care discussed even if they declined (Discuss DNR or withdrawal of care, Hospice)? DNR status @ -No What co-morbidities impacted this encounter? (DM, HTN, Smoking, COPD, CAD, Cancer, CVA, ARF, Chemo, Hep., AIDS, mental health diagnosis, sleep apnea, morbid obesity)? @ -hx nephrolithiasis Was patient admitted / discharged? Hospital course, mention meds given and route, prescriptions, significant lab abnormalities, going to OR and other pertinent info. @ -Upon arrival patient seen and evaluated in hallway 11. Thorough history and physical exam was performed. IV is established. Pain and nausea medications are administered. Patient is started on fluid bolus for sepsis. I did use the patient's ideal body weight. Laboratory studies are conducted. CT was performed. Patient does have grossly infected urine. CT demonstrates left- sided ureteral stone with marked hydronephrosis. Spoke with the patient in regards to this. Spoke with Dr. Goyal. Patient remains n.p.o. as she will be taken for stent placement. Source of infection identified at 1714 as this is when urinalysis is completed. Spoke with Dr. Ramirez for admission Undiagnosed new problem with uncertain prognosis? @ -No Drug Therapy requiring intensive monitoring for toxicity (Heparin, Nitro, Insulin, Cardizem)? @ -No Were any procedures done? @ -No Diagnosis/symptom? @ -Acute left flank pain, acute left ureteral stone with hydronephrosis, acute UTI, septic stone Acute, or Chronic, or Acute on Chronic? @ -Acute Uncomplicated (without systemic symptoms) or Complicated (systemic symptoms)? @ -Complicated Side effects of treatment? @ -No Exacerbation, Progression, or Severe Exacerbation? @ -No Poses a threat to life or bodily function? How? (Chest pain, USA, ND, pneumonia, PE, COPD, DKA, ARF, appy, cholecystitis, CVA, Diverticulitis, Homicidal, Suicidal, threat to staff... and all critical care pts) @ -Yes as patient does have a septic stone (Jacquelyn Stallworth) - Lab Data Lab Results 09/04/24 09/04/24 09/04/24 Range/Units 13:49 14:18 14:18 WBC 15.8 H (3.8-10.6) k/uL RBC 4.88 (3.80-5.40) m/uL Hgb 15.8 (11.4-16.0) gm/dL Hct 46.0 (34.0-46.0) % MCV 94.2 (80.0-100.0) fL MCH 32.4 (25.0-35.0) pg MCHC 34.3 (31.0-37.0) g/dL RDW 12.4 (11.5-15.5) % Plt Count 219 (150-450) k/uL MPV 7.0 Neutrophils % 92 % Lymphocytes % 3 % Monocytes % 4 % Eosinophils % 1 % Basophils % 0 % Neutrophils # 14.5 H (1.3-7.7) k/uL Lymphocytes # 0.5 L (1.0-4.8) k/uL Monocytes # 0.6 (0-1.0) k/uL Eosinophils # 0.1 (0-0.7) k/uL Basophils # 0.0 (0-0.2) k/uL Sodium 135 L (137-145) mmol/L Potassium 4.3 (3.5-5.1) mmol/L Chloride 100 (98-107) mmol/L Carbon Dioxide 26 (22-30) mmol/L Anion Gap 9 mmol/L BUN 22 H (7-17) mg/dL Creatinine 1.09 H (0.52-1.04) mg/dL Est GFR (CKD-EPI)AfAm 59 (>60 ml/min/1.73 sqM) Est GFR (CKD-EPI)NonAf 51 (>60 ml/min/1.73 sqM) Glucose 133 H (74-99) mg/dL Plasma Lactic Acid G[place] (0.7-2.0) mmol/L Calcium 9.4 (8.4-10.2) mg/dL Magnesium 2.0 (1.6-2.3) mg/dL Total Bilirubin 1.9 H (0.2-1.3) mg/dL AST 135 H (14-36) U/L ALT 91 H (4-34) U/L Alkaline Phosphatase 100 (38-126) U/L Total Protein 7.2 (6.3-8.2) g/dL Albumin 4.4 (3.5-5.0) g/dL Urine Color Yellow Urine Appearance Turbid H (Clear) Urine pH 5.5 (5.0-8.0) Ur Specific [place] 1.018 (1.001-1.035) Urine Protein 1+ H (Negative) Urine Glucose (UA) Negative (Negative) Urine Ketones Negative (Negative) Urine Blood Small H (Negative) Urine Nitrite Positive H (Negative) Urine Bilirubin Negative (Negative) Urine Urobilinogen <2.0 (<2.0) mg/dL Ur Leukocyte Esterase Large H (Negative) Urine RBC 19 H (0-5) /hpf Urine WBC >182 H (0-5) /hpf Urine WBC Clumps Many H (None) /hpf Ur Squamous Epith Cells 1 (0-4) /hpf Urine Bacteria Moderate H (None) /hpf Urine Mucus Few H (None) /hpf 09/04/24 Range/Units 14:18 WBC (3.8-10.6) k/uL RBC (3.80-5.40) m/uL Hgb (11.4-16.0) gm/dL Hct (34.0-46.0) % MCV (80.0-100.0) fL MCH (25.0-35.0) pg MCHC (31.0-37.0) g/dL RDW (11.5-15.5) % Plt Count (150-450) k/uL MPV Neutrophils % % Lymphocytes % % Monocytes % % Eosinophils % % Basophils % % Neutrophils # (1.3-7.7) k/uL Lymphocytes # (1.0-4.8) k/uL Monocytes # (0-1.0) k/uL Eosinophils # (0-0.7) k/uL Basophils # (0-0.2) k/uL Sodium (137-145) mmol/L Potassium (3.5-5.1) mmol/L Chloride (98-107) mmol/L Carbon Dioxide (22-30) mmol/L Anion Gap mmol/L BUN (7-17) mg/dL Creatinine (0.52-1.04) mg/dL Est GFR (CKD-EPI)AfAm (>60 ml/min/1.73 sqM) Est GFR (CKD-EPI)NonAf (>60 ml/min/1.73 sqM) Glucose (74-99) mg/dL Plasma Lactic Acid [place] 1.2 (0.7-2.0) mmol/L Calcium (8.4-10.2) mg/dL Magnesium (1.6-2.3) mg/dL Total Bilirubin (0.2-1.3) mg/dL AST (14-36) U/L ALT (4-34) U/L Alkaline Phosphatase (38-126) U/L Total Protein (6.3-8.2) g/dL Albumin (3.5-5.0) g/dL Urine Color Urine Appearance (Clear) Urine pH (5.0-8.0) Ur Specific [place] (1.001-1.035) Urine Protein (Negative) Urine Glucose (UA) (Negative) Urine Ketones (Negative) Urine Blood (Negative) Urine Nitrite (Negative) Urine Bilirubin (Negative) Urine Urobilinogen (<2.0) mg/dL Ur Leukocyte Esterase (Negative) Urine RBC (0-5) /hpf Urine WBC (0-5) /hpf Urine WBC Clumps (None) /hpf Ur Squamous Epith Cells (0-4) /hpf Urine Bacteria (None) /hpf Urine Mucus (None) /hpf Disposition <Regi Hernandez - Last Filed: 09/04/24 13:43> Is patient prescribed a controlled substance at d/c from ED?: No Time of Disposition: 17:35 Decision to Admit Reason: Admit from EC Decision Date: 09/04/24 Decision Time: 17:35 <Jacquelyn Stallworth - Last Filed: 09/07/24 20:02> Clinical Impression: Ureterolithiasis, Hydronephrosis, Left flank pain, Sepsis, UTI (urinary tract infection) Disposition: ADMITTED IP TO THIS [facility] Condition: Stable
[2024-09-04 14:28] LABS: Basophils % (A) 0 %; Eosinophils # (A) 0.1 k/uL (0-0.7); Eosinophils % (A) 1 %; HGB 15.8 gm/dL (11.4-16.0); Lymphocytes # (A) 0.5 k/uL (1.0-4.8); Lymphocytes % (A) 3 %; MCH 32.4 pg (25.0-35.0); MCHC 34.3 g/dL (31.0-37.0); MCV 94.2 fL (80.0-100.0); Monocytes # (A) 0.6 k/uL (0-1.0); Monocytes % (A) 4 %; Neutrophils # (A) 14.5 k/uL (1.3-7.7); Neutrophils % (A) 92 %; Platelet Count 219 k/uL (150-450); RBC 4.88 m/uL (3.80-5.40); RDW 12.4 % (11.5-15.5); WBC 15.8 k/uL (3.8-10.6)
[2024-09-04 14:35] LABS: ALT 91 U/L (4-34); AST 135 U/L (14-36); African American GFR (CKD) 59 (>60 ml/min/1.73 sqM); Albumin 4.4 g/dL (3.5-5.0); Alkaline Phosphatase 100 U/L (38-126); Anion Gap 9 mmol/L; Blood Urea Nitrogen 22 mg/dL (7-17); Calcium 9.4 mg/dL (8.4-10.2); Carbon Dioxide 26 mmol/L (22-30); Chloride 100 mmol/L (98-107); Glucose 133 mg/dL (74-99); Non-African American GFR(CKD) 51 (>60 ml/min/1.73 sqM); Potassium 4.3 mmol/L (3.5-5.1); Sodium 135 mmol/L (137-145); Total Bilirubin 1.9 mg/dL (0.2-1.3); Total Protein 7.2 g/dL (6.3-8.2)
--- NOTE | 2024-09-04 15:31 | CT ---
EXAMINATION TYPE: CT abdomen pelvis wo con DATE OF EXAM: 09/04/2024 COMPARISON: 10/07/2022 CLINICAL INDICATION: Female, 73 years old with history of L flank and ab pain, hx kidney stones; PHH, L flank and ab pain, hx kidney stones. TECHNIQUE: CT scan of the abdomen and pelvis is performed without oral or IV contrast. CT DLP: 560.[address] CTDI: mGy Automated exposure control for dose reduction was used. FINDINGS: Within the limitations of a non-contrast study, the following observations are made. The lungs are clear. There is a large hiatal hernia. There is surgical absence of the gallbladder. There is no biliary ductal dilatation. There is no organomegaly of the liver, pancreas, spleen or adrenal glands. There is moderate to marked left hydronephrosis and hydroureter secondary to an obstructing 7-8mm lisset cification in the left UVJ. There are no right renal calcifications or hydronephrosis The caliber of the abdominal aorta is normal and there is no retroperitoneal adenopathy or hemorrhage . The bowel loops are normal in caliber is no evidence of obstruction. No inflammatory changes are iden tified in the mesentery and there is no free intraperitoneal air or fluid. There is no pelvic mass, free fluid, abscess or adenopathy. The osseous structures and soft tissues are unremarkable. IMPRESSION: 1. Moderate to marked left hydronephrosis and hydroureter secondary to a 7-8 mm obstructing calculus in the left UVJ. 2. Large hiatal hernia. [facility], , 09/04/2024 3:28 PM
[2024-09-04] MEDS: SODIUM CHLORIDE 0.9% 1,000 ML IV STA (15:46)
[2024-09-04] MEDS: ONDANSETRON 4 MG/2 ML VIAL IVP STA (16:05)
[2024-09-04] MEDS: SODIUM CHLORIDE 0.9% 2,000 ML IV ONE (16:05)
[2024-09-04] MEDS: MORPHINE SULFATE 4 MG/ML SYRINGE IVP STA (16:05)
[2024-09-04] MEDS: PIPERACILLIN-TAZOBACTAM 3.375 GM in SODIUM CHLORIDE 0.9% 100 ML IVPB SCH (16:30)
[2024-09-04] MEDS: ACETAMINOPHEN IV (For NPO) 1,000 MG in EMPTY BAG 1 BAG IVPB STA (16:30)
[2024-09-04 17:14] LABS: Appearance,Urine Turbid (Clear); Bacteria,Urine Moderate /hpf; Bilirubin,Urine Negative (Negative); Blood,Urine Small (Negative); Color,Urine Yellow; Glucose,Urine (UA) Negative (Negative); Ketones,Urine Negative (Negative); Leukocyte Esterase,Urine Large (Negative); Mucus,Urine Few /hpf; Nitrite,Urine Positive (Negative); PH, Urine 5.5 (5.0-8.0); Protein,Urine 1+ (Negative); RBC,Urine 19 /hpf (0-5); Specific Gravity,Urine 1.018 (1.001-1.035); Squamous Epithelial Cell,Urine 1 /hpf (0-4); Urobilinogen,Urine <2.0 mg/dL (<2.0); WBC,Urine >182 /hpf (0-5)
[2024-09-04] MEDS ORDERED: NALOXONE 0.4 MG/ML 1 ML VIAL IV PRN (17:35)
[2024-09-04] MEDS ORDERED: ACETAMINOPHEN TAB 325 MG TAB PO PRN (17:35)
[2024-09-04] MEDS: IV FLUID CONTINUATION 900 ML IV ONE (18:10)
[2024-09-04] MEDS ORDERED: LIDOCAINE 1% INJ 10MG/ML (20 ML MDV) ONE (18:30)
[2024-09-04] MEDS ORDERED: SUCCINYLCHOLINE CHLORIDE 200 MG/10 ML VIAL IV ONE (18:30)
[2024-09-04] MEDS ORDERED: PHENYLEPHRINE-0.9% NACL SYG 1,000 MCG/10 ML SYRINGE ONE (18:30)
[2024-09-04] MEDS ORDERED: MIDAZOLAM 2 MG/2 ML VIAL ONE (18:30)
[2024-09-04] MEDS ORDERED: fentaNYL (PF) 50 MCG/ML 2 ML AMP ONE (18:30)
[2024-09-04] MEDS ORDERED: PROPOFOL 10 MG/ML 20 ML VIAL IV ONE (18:30)
--- NOTE | 2024-09-04 18:38 | P.GSCN ---
History of Present Illness Consult date: 09/04/24 Reason for Consult: UTI, left hydronephrosis Requesting physician: Wilfrido Ramirez History of present illness: The patient is a 73-year-old white female with a history of calcium oxalate urolithiasis. She required hospitalization in 2022 for management of a UTI complicated by an obstructing right UPJ calculus. Beginning yesterday, she has experienced left flank pain associated with nausea and vomiting. When evaluated in the ER, she was found to be febrile. CT scan showed moderate to severe left hydroureteronephrosis due to a 7 to 8 mm left UVJ calculus. Lab studies show leukocytosis and urinalysis is consistent with infection. Review of Systems - Constitutional Reports fever - Gastrointestinal Reports nausea, Reports vomiting - Genitourinary Genitourinary: Reports flank pain, Reports kidney stones, Denies dysuria, Denies hematuria Past Medical History Past Medical History: Cancer, GERD/Reflux, Hypertension, Osteoarthritis (OA), Sleep Apnea/CPAP/BIPAP, Thyroid Disorder Additional Past Medical History / Comment(s): migraines,diverticulitis, urgency with bowel movements after eatting, hiatal hernia, no cpap used, anemia, hx skin cancer History of Any Multi-Drug Resistant Organisms: ESBL Year Discovered:: 05/21/24 MDRO Source:: urine Past Surgical History: Orthopedic Surgery Additional Past Surgical History / Comment(s): deon knee replacements, rt foot surgery, back surgery x 2, rt knee arthroscopy, Past Anesthesia/Blood Transfusion Reactions: Motion Sickness Additional Past Anesthesia/Blood Transfusion Reaction / Comm: hx car sick when younger, Past Psychological History: Anxiety Smoking Status: Former smoker Past Alcohol Use History: None Reported Past Drug Use History: None Reported - Past Family History Mother Family Medical History: No Reported History Medications and Allergies Home Medications Medication Instructions Recorded Confirmed Type ALPRAZolam [Xanax] 0.5 mg PO TID PRN 10/07/22 09/04/24 History Levothyroxine Sodium 150 mcg PO DAILY 10/07/22 09/04/24 History Naratriptan HCl [Amerge] 2.5 mg PO BID PRN MDD 5 mg 10/07/22 09/04/24 History amLODIPine [Norvasc] 5 mg PO DAILY 10/07/22 09/04/24 History Phentermine HCl [Adipex-P] 37.5 mg PO DAILY 09/04/24 09/04/24 History Zolpidem Tartrate [Ambien Cr] 6.25 mg PO HS 09/04/24 09/04/24 History Allergies Allergy/AdvReac Type Severity Reaction Status Date / Time ciprofloxacin [From Cipro] Allergy Dyspnea Verified 09/04/24 16:55 ciprofloxacin HCl Allergy Dyspnea Verified 09/04/24 16:55 [From Cipro] acetaminophen AdvReac Nausea & Verified 09/04/24 16:55 [From Tylenol-Codeine #3] Vomiting & Diarrhea codeine AdvReac Nausea & Verified 09/04/24 16:55 [From Tylenol-Codeine #3] Vomiting & Diarrhea hydrocodone [From [place]] AdvReac Nausea & Verified 09/04/24 16:55 Vomiting & Diarrhea milk AdvReac Nausea & Verified 09/04/24 16:55 Vomiting & Diarrhea Surgical - Exam Vital Signs Temp Pulse Resp BP Pulse Ox 100.3 F H 110 H 18 108/74 94 L 09/04/24 13:58 09/04/24 13:58 09/04/24 13:58 09/04/24 13:58 09/04/24 13:58 - General well developed, well nourished, no distress - Respiratory normal respiratory effort - Abdomen Abdomen: soft, non tender, no guarding, no rigid, no rebound - Psychiatric oriented to time, oriented to person, oriented to place, speech is normal, mem ory intact Results - Labs 09/04/24 14:18 09/04/24 14:18 Abnormal Lab Results - Last 24 Hours (Table) 09/04/24 09/04/24 09/04/24 Range/Units 13:49 14:18 14:18 WBC 15.8 H (3.8-10.6) k/uL Neutrophils # 14.5 H (1.3-7.7) k/uL Lymphocytes # 0.5 L (1.0-4.8) k/uL Sodium 135 L (137-145) mmol/L BUN 22 H (7-17) mg/dL Creatinine 1.09 H (0.52-1.04) mg/dL Glucose 133 H (74-99) mg/dL Total Bilirubin 1.9 H (0.2-1.3) mg/dL AST 135 H (14-36) U/L ALT 91 H (4-34) U/L Urine Appearance Turbid H (Clear) Urine Protein 1+ H (Negative) Urine Blood Small H (Negative) Urine Nitrite Positive H (Negative) Ur Leukocyte Esterase Large H (Negative) Urine RBC 19 H (0-5) /hpf Urine WBC >182 H (0-5) /hpf Urine WBC Clumps Many H (None) /hpf Urine Bacteria Moderate H (None) /hpf Urine Mucus Few H (None) /hpf Diabetes panel 09/04/24 Range/Units 14:18 Sodium 135 L (137-145) mmol/L Potassium 4.3 (3.5-5.1) mmol/L Chloride 100 (98-107) mmol/L Carbon Dioxide 26 (22-30) mmol/L BUN 22 H (7-17) mg/dL Creatinine 1.09 H (0.52-1.04) mg/dL Glucose 133 H (74-99) mg/dL Calcium 9.4 (8.4-10.2) mg/dL AST 135 H (14-36) U/L ALT 91 H (4-34) U/L Alkaline Phosphatase 100 (38-126) U/L Total Protein 7.2 (6.3-8.2) g/dL Albumin 4.4 (3.5-5.0) g/dL Calcium panel 09/04/24 Range/Units 14:18 Calcium 9.4 (8.4-10.2) mg/dL Albumin 4.4 (3.5-5.0) g/dL Pituitary panel 09/04/24 Range/Units 14:18 Sodium 135 L (137-145) mmol/L Potassium 4.3 (3.5-5.1) mmol/L Chloride 100 (98-107) mmol/L Carbon Dioxide 26 (22-30) mmol/L BUN 22 H (7-17) mg/dL Creatinine 1.09 H (0.52-1.04) mg/dL Glucose 133 H (74-99) mg/dL Calcium 9.4 (8.4-10.2) mg/dL Adrenal panel 09/04/24 Range/Units 14:18 Sodium 135 L (137-145) mmol/L Potassium 4.3 (3.5-5.1) mmol/L Chloride 100 (98-107) mmol/L Carbon Dioxide 26 (22-30) mmol/L BUN 22 H (7-17) mg/dL Creatinine 1.09 H (0.52-1.04) mg/dL Glucose 133 H (74-99) mg/dL Calcium 9.4 (8.4-10.2) mg/dL Total Bilirubin 1.9 H (0.2-1.3) mg/dL AST 135 H (14-36) U/L ALT 91 H (4-34) U/L Alkaline Phosphatase 100 (38-126) U/L Total Protein 7.2 (6.3-8.2) g/dL Albumin 4.4 (3.5-5.0) g/dL - Imaging CT scan - abdomen: report reviewed, image reviewed Assessment and Plan (1) Hydronephrosis with renal and ureteral calculous obstruction Current Visit: No Status: Acute Code(s): N13.2 - HYDRONEPHROSIS WITH RENAL AND URETERAL CALCULOUS OBSTRUCTION SNOMED Code(s): 141306089 (2) Acute pyelonephritis Current Visit: No Status: Acute Code(s): N10 - ACUTE PYELONEPHRITIS SNOMED Code(s): 97095637 Plan: The patient has received Zosyn. She will undergo emergent cystoscopy with left ureteral stent insertion. The rationale for this was discussed in detail with the patient, who is also understanding of potential risks. Time with Patient: Greater than 30
--- NOTE | 2024-09-04 19:20 | P.OP ---
Date of Procedure: 09/04/24 Preoperative Diagnosis: Left hydronephrosis secondary to left distal ureteral calculus Postoperative Diagnosis: Same Procedure(s) Performed: Cystoscopy, left ureteral stent insertion Anesthesia: ELLYA Surgeon: Manuel Goyal Estimated Blood Loss (ml): 0 IV fluids (ml): 500 Pathology: none sent Condition: stable Disposition: PACU Indications for Procedure: The patient is a 73-year-old white female with a history of calcium oxalate urolithiasis. She required hospitalization in 2022 for management of a UTI complicated by an obstructing right UPJ calculus. Beginning yesterday, she has experienced left flank pain associated with nausea and vomiting. When evaluated in the ER, she was found to be febrile. CT scan showed moderate to severe left hydroureteronephrosis due to a 7 to 8 mm left UVJ calculus. Lab studies show leukocytosis and urinalysis is consistent with infection. She has received IV antibiotics and now comes for insertion of a left ureteral stent. Operative Findings: Left UVJ calculus impacted at the left ureteral orifice. Description of Procedure: The patient was taken to the operating room and placed in the dorsolithotomy position, with legs supported in Dennis stirrups. The external genitalia was prepped and draped sterilely. The 30 lens was used to introduce the 22-[place] Stortz cystoscopic sheath through the urethra and into the bladder under direct vision. The bladder was examined in its entirety. The right ureteral orifice appeared normal. Edema surrounded the left ureteral orifice, and the tip of a calculus was seen crowned at the left ureteral orifice. No tumors or foreign bodies were seen. It was obvious that a Glidewire could not be passed into the left ureteral orifice via the cystoscope. Therefore, the cystoscope was removed and the [facility] semirigid ureteroscope was advanced into the bladder under direct vision. A 0.035 inch Glidewire was passed through the ureteroscope. The left ureteral orifice was cannulated, and the Glidewire was slowly advanced beyond the calculus and up to the renal pelvis. The ureteroscope was then removed, and the Glidewire was backloaded into the cystoscope, which was passed into the bladder. A 24 cm, 6-[place] double-J ureteral stent was placed over the wire. Proper stent positioning was verified fluoroscopically and endoscopically. There was evidence of a "hydronephrotic bojorquez", as cloudy urine drained through the stent. With the beak of the cystoscope immediately adjacent to the distal end of the stent, urine was collected and sent for culture and sensitivity. The bladder was emptied and the cystoscope removed. The patient tolerated the procedure well and was taken to the recovery room in stable condition.
--- NOTE | 2024-09-04 20:25 | FL ---
Fluoroscopy INDICATION: Pain FINDINGS: Fluoroscopy time: 5.3 seconds. Total dose area product (DAP) in uGy*m?, mGy*cm? (or similar): 0.37-0 Images obtained: 2. Stent is placed on the left. IMPRESSION: 1. Documentation of fluoroscopy. [facility], , 09/04/2024 8:23 PM
[2024-09-04] MEDS ORDERED: SUMAtriptan succinate 50 MG TAB PO PRN (21:43)
--- NOTE | 2024-09-04 21:52 | P.HPIM ---
History of Present Illness H&P Date: 09/04/24 Patient is a 73-year-old female with hypertension, GERD, osteoarthritis, sleep apnea, hypothyroidism, anxiety, panic attacks here for abdominal pain. Patient reported that she has been experiencing left sharp flank pain with intensity of 10 out of 10 that radiates over to the left lower quadrant 2 days ago. Tried topical pain relievers but did not work. Abdominal pain increased intensity which led her to seek care today. She has associated nausea, nonbloody vomiting, chills, nonbloody diarrhea, urinary frequency. She denied dysuria, hematuria, fever, chills, diarrhea, cough, leg swelling, calf pain, chest pain, palpitations, recent illness. She has a history of prior lithotripsy for kidney stones in 2022. She also had a cholecystectomy. Social history: Tobacco: She is a never smoker Alcohol: She has no history of alcohol use Recreational drugs: No history of illicit or recreational drug use Travel: No recent travel On admission, CT abdomen showed moderate to marked left hydronephrosis and hydroureter secondary to a 7 to 8 mm obstructing calculus in the left UVJ, large hiatal hernia. Labs on admission showed WBC 15.8, hemoglobin 15.8, platelet count 219,000, sodium 135, potassium 4.3, chloride 100, bicarb 26, BUN 22, creatinine 1.09, glucose 133, lactic acid 1.2, calcium 9.4, magnesium 2, bilirubin 1.9, AST 135, ALT 91, alk phos 100, albumin 4.4. Urinalysis showed turbid appearance, +1 protein, small blood, positive nitrite, large leukocyte esterase, RBC 19, greater than 182 WBC, many WBC clumps, moderate bacteria, few urine mucus. Vitals on admission patient was febrile at 100.3 Fahrenheit, pulse rate 110, respiratory rate 18, blood pressure 108/74, O2 saturation 94% on room air ED documentation reviewed. 1 L 0.9 normal saline bolus, Zosyn IVPB, IV acetaminophen, pain control, and Zofran IVPB given in the ED Review of Systems Review of systems: Pertinent positives and negatives as discussed in HPI, a complete review of s ystems was performed and all other systems are negative. Past Medical History Past Medical History: Cancer, GERD/Reflux, Hypertension, Osteoarthritis (OA), Sleep Apnea/CPAP/BIPAP, Thyroid Disorder Additional Past Medical History / Comment(s): migraines,diverticulitis, urgency with bowel movements after eatting, hiatal hernia, no cpap used, anemia, hx skin cancer History of Any Multi-Drug Resistant Organisms: ESBL Date of last positivie culture/infection: 05/21/24 MDRO Source:: urine Past Surgical History: Orthopedic Surgery Additional Past Surgical History / Comment(s): deon knee replacements, rt foot surgery, back surgery x 2, rt knee arthroscopy, Past Anesthesia/Blood Transfusion Reactions: Motion Sickness Additional Past Anesthesia/Blood Transfusion Reaction / Comment(s): hx car sick when younger, Past Psychological History: Anxiety Smoking Status: Former smoker Past Alcohol Use History: None Reported Past Drug Use History: None Reported - Past Family History Mother Family Medical History: No Reported History Medications and Allergies Home Medications Medication Instructions Recorded Confirmed Type ALPRAZolam [Xanax] 0.5 mg PO TID PRN 10/07/22 09/04/24 History Levothyroxine Sodium 150 mcg PO DAILY 10/07/22 09/04/24 History Naratriptan HCl [Amerge] 2.5 mg PO BID PRN MDD 5 mg 10/07/22 09/04/24 History amLODIPine [Norvasc] 5 mg PO DAILY 10/07/22 09/04/24 History Phentermine HCl [Adipex-P] 37.5 mg PO DAILY 09/04/24 09/04/24 History Zolpidem Tartrate [Ambien Cr] 6.25 mg PO HS 09/04/24 09/04/24 History Allergies Allergy/AdvReac Type Severity Reaction Status Date / Time ciprofloxacin [From Cipro] Allergy Dyspnea Verified 09/04/24 16:55 ciprofloxacin HCl Allergy Dyspnea Verified 09/04/24 16:55 [From Cipro] acetaminophen AdvReac Nausea & Verified 09/04/24 16:55 [From Tylenol-Codeine #3] Vomiting & Diarrhea codeine AdvReac Nausea & Verified 09/04/24 16:55 [From Tylenol-Codeine #3] Vomiting & Diarrhea hydrocodone [From [place]] AdvReac Nausea & Verified 09/04/24 16:55 Vomiting & Diarrhea milk AdvReac Nausea & Verified 09/04/24 16:55 Vomiting & Diarrhea Physical Exam Vitals: Vital Signs Temp Pulse Pulse Resp BP BP Pulse Ox 09/04/24 18:11 99.2 F 98 16 113/64 95 09/04/24 18:02 99.9 F H 96 18 118/77 96 09/04/24 15:32 96 18 112/75 95 09/04/24 13:58 100.3 F H 110 H 18 108/74 94 L Intake and Output 09/04/24 09/04/24 09/04/24 06:59 14:59 22:59 Intake Total 500 Output Total 0 Balance 500 Intake: IV 500 Output: Estimated Blood Loss 0 Other: Weight 77.111 kg Physical examination: Vital signs reviewed General: non toxic, no distress, appears at stated age, Derm: no unusual rashes/lesions, warm Head: atraumatic, normocephalic, symmetric Eyes: EOMI, anicteric sclera, pupils equal round reactive to light ENT: Nose and ears atraumatic Neck: No cervical lymphadenopathy, trachea midline, supple Mouth: no lip lesion, mucus membranes moist Cardiovascular: S1S2 reg, no murmur Lungs: CTA bilateral, no rhonchi, no rales, no accessory muscle use Abdominal: soft, nondistended, left lower quadrant tenderness to light palpation , no guarding, CVA tenderness of the left flank Ext: muscle strength 5 out of 5 in all 4 extremities grossly, no gross muscle atrophy, no contractures, positive dorsalis pedis pulse bilateral, no edema Neuro: CN II-XI grossly intact, no gross focal neuro deficits Psych: Alert and oriented x 3, appropriate affect and mood Results CBC & Chem 7: 09/04/24 14:18 09/05/24 03:33 Labs: Abnormal Lab Results - Last 24 Hours (Table) 09/04/24 09/04/24 09/04/24 Range/Units 13:49 14:18 14:18 WBC 15.8 H (3.8-10.6) k/uL Neutrophils # 14.5 H (1.3-7.7) k/uL Lymphocytes # 0.5 L (1.0-4.8) k/uL Sodium 135 L (137-145) mmol/L BUN 22 H (7-17) mg/dL Creatinine 1.09 H (0.52-1.04) mg/dL Glucose 133 H (74-99) mg/dL Total Bilirubin 1.9 H (0.2-1.3) mg/dL AST 135 H (14-36) U/L ALT 91 H (4-34) U/L Urine Appearance Turbid H (Clear) Urine Protein 1+ H (Negative) Urine Blood Small H (Negative) Urine Nitrite Positive H (Negative) Ur Leukocyte Esterase Large H (Negative) Urine RBC 19 H (0-5) /hpf Urine WBC >182 H (0-5) /hpf Urine WBC Clumps Many H (None) /hpf Urine Bacteria Moderate H (None) /hpf Urine Mucus Few H (None) /hpf Thrombosis Risk Factor Assmnt - Choose All That Apply Each Factor Represents 1 point: Obesity (BMI >25) Each Risk Factor Represents 2 Points: Age 61-74 years Thrombosis Risk Factor Assessment Total Risk Factor Score: 3 Thrombosis Risk Factor Assessment Level: Moderate Risk Assessment and Plan Assessment: Assessment/Plan: 73-year-old female with prior history of kidney stones and lithotripsy here for nephrolithiasis with marked hydronephrosis of the left kidney. #. Acute pyelonephritis secondary to nephrolithiasis status post cystoscopy with left ureteral stent insertion #. RICHELLE with hydronephrosis secondary to above #. Sepsis secondary to above -CT abdomen showed moderate to marked left hydronephrosis and hydroureter secondary to a 7 to 8 mm obstructing calculus in the left UVJ -WBC 15.8, BUN 22, Cr 1.09 -Patient febrile 100.3 Fahrenheit, tachcardic 110 - Urinalysis showed turbid appearance, +1 protein, small blood, positive nitrite, large leukocyte esterase, RBC 19, greater than 182 WBC, many WBC clumps, moderate bacteria, few urine mucus -1 L bolus 0.9 normal saline given in the ED. Continue with 0.9 normal saline 130 cc/h -Patient has history of ESBL urine culture on 05/21/2024. Continue with Zosyn IVPB every 8 hours -Continue with Zofran 4 mg IVP every 8 hours as needed for nausea -Continue with pain control with Toradol 15 mg IVP every 6 hours, morphine 4 mg IVP as needed -Urine culture ordered -Blood cultures pending -Monitor CBC -Cardiac monitoring -Urology consulted #. Large hiatal hernia -Seen on CT abdomen -Patient asymptomatic. Patient reported that she has known of the hiatal hernia for 5 years. Was supposed to follow-up with Dr. Venegas. -Will monitor for now. Follow-up on outpatient basis. -Consider GI Consult if patient develops symptoms #. Elevated liver enzymes -Total bilirubin 1.9, AST 135, ALT 91 -No history of alcohol use or liver disease -Abdominal ultrasound -Monitor CMP Chronic Conditions: #. Hypertension #. GERD #. Osteoarthritis #. Sleep apnea #. Hypothyroidism #. Anxiety #. Panic attacks #. Migraine -Hold norvasc 5mg PO for now as blood pressure is soft -Continue home medications once reconciled F: Normal saline 0.9% 130 mL/h E: None for now N: Renal diet A:can self ambulate DVT ppx: Heparin subcu every 8 hours Plan: Dispo: The patient is admitted with an anticipated greater than 2 midnight stay for evaluation of acute pyelonephritis with hydronephrosis CODE STATUS: Full Discussed with: Patient Anticipated discharge place: Home Georgette Gerber MD PGY-1 IM Dictation was produced using [employer]oom dictation software. please excuse any grammatical, word or spelling errors. I have seen and evaluated the patient today. I Discussed the case with the resident and agree with the resident's findings I edited the assessment and pl an as necessary as documented in the resident's note.
[2024-09-04] MEDS: ZOLPIDEM 5 MG TAB PO SCH (23:06)
[2024-09-04] MEDS: KETOROLAC 15 MG/ML 1 ML VIAL IVP SCH (23:08)
[2024-09-04] MEDS: HEPARIN SODIUM,PORCINE 5,000 UNIT/ML 1 ML VIAL SQ SCH (23:09)
[2024-09-04] MEDS: PETROLATUM, WHITE 49 GM JELLY TOPICAL SCH (23:41)
[2024-09-05] MEDS: ONDANSETRON 4 MG/2 ML VIAL IVP PRN (03:52)
[2024-09-05 04:45] LABS: Chloride 106 mmol/L (98-107); Glucose 108 mg/dL (74-99); Sodium 135 mmol/L (137-145)
[2024-09-05 04:46] LABS: ALT 80 U/L (4-34); AST 83 U/L (14-36); African American GFR (CKD) 61 (>60 ml/min/1.73 sqM); Albumin 3.1 g/dL (3.5-5.0); Albumin/Globulin Ratio 1.2; Alkaline Phosphatase 95 U/L (38-126); Anion Gap 7 mmol/L; Blood Urea Nitrogen 25 mg/dL (7-17); Calcium 8.3 mg/dL (8.4-10.2); Carbon Dioxide 22 mmol/L (22-30); Globulin 2.5 g/dL; Non-African American GFR(CKD) 53 (>60 ml/min/1.73 sqM); Total Bilirubin 1.4 mg/dL (0.2-1.3); Total Protein 5.6 g/dL (6.3-8.2)
[2024-09-05] MEDS: LEVOTHYROXINE 75 MCG TAB PO SCH (06:42)
--- NOTE | 2024-09-05 08:05 | US ---
EXAMINATION TYPE: US abdomen limited DATE OF EXAM: 09/05/2024 Exam done portable COMPARISON: CT 2024 CLINICAL INDICATION: Female, 73 years old with history of elevated liver enzymes; TECHNIQUE: Grayscale and color Doppler imaging of the right upper quadrant was performed. FINDINGS: EXAM MEASUREMENTS: Liver Length: 15.9 cm CBD: 0.6 cm Right Kidney: 9.2 x 4.5 x 4.3 cm Pancreas: obscured by overlying midline bowel gas Liver: heterogeneous course echotexture Gallbladder: surgically absent CBD: visualized portions wnl, limited by overlying bowel gas Right Kidney: visualized portions wnl, inferior pole obscured by overlying bowel gas Pancreas is obscured by overlying bowel gas. The liver demonstrates heterogenous coarse echotexture w ithout surface nodularity or focal lesion identified. Gallbladder is surgically absent. The visualize d portions of the common bile duct are within normal limits. The visualized portions of the right kid gm demonstrate no hydronephrosis, shadowing calculi or solid mass. IMPRESSION: 1. Heterogenous coarsened echotexture of the liver without focal lesion. Findings suggest nonspecifi c hepatocellular disease. Most commonly hepatic steatosis. 2. Postcholecystectomy changes. [facility], , 09/05/2024 8:02 AM
[2024-09-05 09:20] LABS: Basophils # (A) 0.04 X 10*3/uL (0.00-0.10); Basophils % (A) 0.3 %; Eosinophils # (A) 0.13 X 10*3/uL (0.04-0.35); HCT 39.4 % (37.2-46.3); Lymphocytes # (A) 1.39 X 10*3/uL (0.90-5.00); Lymphocytes % (A) 10.9 %; MCH 31.5 pg (27.0-32.0); MCV 95.4 FL (80.0-97.0); Mean Platelet Volume 10.4 FL (9.5-12.2); Monocytes # (A) 0.81 X 10*3/uL (0.20-1.00); Monocytes % (A) 6.4 %; NRBC Per 100 WBC 0 X 10*3/uL (0.00-0.01); Neutrophils # (A) 10.31 X 10*3/uL (1.80-7.70); Neutrophils % (A) 80.9 %; Platelet Count 194 X 10*3/uL (140-440); RBC 4.13 X 10*6/uL (4.10-5.20); RDW 12.6 % (11.5-14.5); WBC 12.74 X 10*3/uL (4.50-10.00)
--- NOTE | 2024-09-05 16:15 | P.PN ---
Subjective Progress Note Date: 09/05/24 Principal diagnosis: Acute pyelonephritis complicated by left distal ureteral calculus The patient presented with a febrile UTI. CT scan showed left hydronephrosis due to a UVJ calculus. She underwent cystoscopy with left ureteral stent insertion in September 04, 2024. Preliminary blood cultures show E. coli, presumed to be of urinary source. She states that her pain is much improved today but she continues to experience nausea. Objective - Vital Signs Vital signs: Vital Signs Temp 98.0 F 09/05/24 08:00 Pulse 74 09/05/24 08:00 Resp 16 09/05/24 08:00 BP 102/67 09/05/24 08:00 Pulse Ox 91 L 09/05/24 08:00 FiO2 Intake & Output 09/04/24 09/05/24 09/05/24 18:59 06:59 18:59 Intake Total 500 100 Output Total 100 Balance 500 0 Weight 77.111 kg 77.111 kg Intake: IV 500 100 Output: Urine 100 Estimated Blood Loss 0 Other: Voiding Method Toilet # Voids 2 - Constitutional General appearance: Present: average body habitus, cooperative, no acute distress - Psychiatric Psychiatric: Present: A&O x's 3 - Labs CBC & Chem 7: 09/05/24 03:33 09/05/24 03:33 Labs: Abnormal Lab Results - Last 24 Hours (Table) 09/04/24 09/04/24 09/04/24 Range/Units 13:49 14:18 14:18 WBC 15.8 H (3.8-10.6) k/uL Immature Gran # (0.00-0.04) X 10*3/uL Neutrophils # 14.5 H (1.3-7.7) k/uL Lymphocytes # 0.5 L (1.0-4.8) k/uL Sodium 135 L (137-145) mmol/L BUN 22 H (7-17) mg/dL Creatinine 1.09 H (0.52-1.04) mg/dL Glucose 133 H (74-99) mg/dL Calcium (8.4-10.2) mg/dL Total Bilirubin 1.9 H (0.2-1.3) mg/dL AST 135 H (14-36) U/L ALT 91 H (4-34) U/L Total Protein (6.3-8.2) g/dL Albumin (3.5-5.0) g/dL Urine Appearance Turbid H (Clear) Urine Protein 1+ H (Negative) Urine Blood Small H (Negative) Urine Nitrite Positive H (Negative) Ur Leukocyte Esterase Large H (Negative) Urine RBC 19 H (0-5) /hpf Urine WBC >182 H (0-5) /hpf Urine WBC Clumps Many H (None) /hpf Urine Bacteria Moderate H (None) /hpf Urine Mucus Few H (None) /hpf 09/05/24 09/05/24 Range/Units 03:33 03:33 WBC 12.74 H (3.8-10.6) k/uL Immature Gran # 0.06 H (0.00-0.04) X 10*3/uL Neutrophils # 10.31 H (1.3-7.7) k/uL Lymphocytes # (1.0-4.8) k/uL Sodium 135 L (137-145) mmol/L BUN 25 H (7-17) mg/dL Creatinine 1.07 H (0.52-1.04) mg/dL Glucose 108 H (74-99) mg/dL Calcium 8.3 L (8.4-10.2) mg/dL Total Bilirubin 1.4 H (0.2-1.3) mg/dL AST 83 H (14-36) U/L ALT 80 H (4-34) U/L Total Protein 5.6 L (6.3-8.2) g/dL Albumin 3.1 L (3.5-5.0) g/dL Urine Appearance (Clear) Urine Protein (Negative) Urine Blood (Negative) Urine Nitrite (Negative) Ur Leukocyte Esterase (Negative) Urine RBC (0-5) /hpf Urine WBC (0-5) /hpf Urine WBC Clumps (None) /hpf Urine Bacteria (None) /hpf Urine Mucus (None) /hpf Microbiology - Last 24 Hours (Table) 09/04/24 15:47 Blood Culture Gram Stain - Preliminary Blood Blood Culture - Preliminary Molecular ID Assessment and Plan (1) Hydronephrosis with renal and ureteral calculous obstruction Current Visit: No Status: Acute Code(s): N13.2 - HYDRONEPHROSIS WITH RENAL AND URETERAL CALCULOUS OBSTRUCTION SNOMED Code(s): 506914121 (2) Acute pyelonephritis Current Visit: No Status: Acute Code(s): N10 - ACUTE PYELONEPHRITIS SNOMED Code(s): 95530899 Plan: The patient has undergone successful stent placement. She has been found to have E. coli in the blood, likely of urinary source. She will continue to receive ceftriaxone, pending the final culture results.
[2024-09-05] MEDS: ALPRAZolam 0.5 MG TAB PO PRN (16:58)
--- NOTE | 2024-09-05 18:14 | P.PN ---
Subjective Progress Note Date: 09/05/24 Hospital course: Patient is a pleasant 73-year-old female with a past medical history of hypertension, hypothyroidism, GERD, obstructive sleep apnea CPAP dependent nightly, and osteoarthritis. She presented to the emergency department on 09/04/2024 with a chief complaint of left flank pain x 2 days accompanied by nausea, vomiting, chills, diarrhea and urinary frequency. Upon arrival to our facility, patient underwent evaluation in the emergency department. Vital signs upon arrival show blood pressure 108/74, heart rate 110, respiratory rate 18, temp 100.3 F, and SpO2 of 94% on room air. Labs completed and reviewed. CBC showing leukocytosis with WBC count of 15.8. BMP showing slightly elevated renal function with BUN of 22, creatinine 1.09, GFR 51. Lactic acid was 1.2. Liver profile showing elevated total bili of 1.9, AST of 135, and ALT of 91. Urinalysis showing nitrite positive UTI. CT abdomen and pelvis without contrast was completed revealing moderate to marked left hydronephrosis and hydroureter secondary to a 7 to 8 mm obstructing calculus in the left UVC and a large hiatal hernia. Patient was started on IV antibiotics with Zosyn secondary to previous urine culture sensitivity report completed 05/21/2024. Admitted under our services with consultation to urology. Patient was taken for cystoscopy with left ureteral stent placement by Dr. Goyal shortly after admission. Physical exam: Patient seen and fully evaluated at bedside. She continues to report mild left flank pain but states has improved since undergoing cystoscopy with stent placement. She reports she still has some nausea but denies any further episodes of vomiting and denies any other complaints at this time. Patient reports urinating without difficulties. Vital signs reviewed and stable. General: Nontoxic, no distress and appears stated age. Derm: Skin warm and dry, normal coloration for ethnicity. Head: Atraumatic, normocephalic and symmetric. Eyes: EOM's intact, no lid lag, and anicteric sclera Mouth: no lip lesions, mucus membranes moist Cardiovascular: regular rate and rhythm with normal S1S2, no murmur, positive posterior tibial pulses bilaterally, and cap refill < 2 seconds. Lungs: Respirations even, regular, and unlabored on room air. Lungs CTA bila terally, no rhonchi, no rales, no wheezing, and no accessory muscle usage. Abdominal: soft, nontender to palpation, no guarding, no appreciable organomegaly Ext: ROM intact. No gross muscle atrophy, no edema, no contractures Neuro: Speech clear, face symmetrical and CN II-XII grossly intact with no noted focal neuro deficits Psych: Alert and oriented to person, place, time, and situation. Appropriate and pleasant affect. Assessment and Plan of Care: Acute pyelonephritis Obstructing ureteral calculus in the left UVC Hydronephrosis with hydroureter E. coli bacteremia Sepsis upon admission, secondary to above -Urology following took patient for cystoscopy with ureteral stent placement on 09/04/2024. -Continue IV antibiotics with Rocephin 2 g every 24 hours -Follow-up on final urine culture and sensitivity report. -Blood cultures showing positive for E. coli with no reported resistance. Discussed with pharmacist antibiotics for downgraded from Zosyn to Rocephin. -Symptomatic care and pain management. Zofran 4 mg IVP every 8 hours as needed for nausea or vomiting. Tylenol 650 mg every 6 hours as needed for mild pain/fever and morphine 4 mg IVP every 4 hours as needed for moderate to severe pain. -Close monitoring of I's and O's. Hypertension -Monitor vital signs and continue daily medication regimen with amlodipine 5 mg daily. Hypothyroidism -Continue levothyroxine 150 mcg daily. GERD -GI prophylaxis with Protonix 40 mg daily. Obstructive sleep apnea -Continue CPAP nightly and while napping. Data and imaging reviewed: Morning labs reviewed CBC showing improvement in leukocytosis with WBC count decreasing from 15.8 down to 12.74. BMP showing sodium 135, BUN 25, creatinine 1.07, GFR 53 with blood glucose of 108. Transaminitis improving with 1.4, AST of 83, and ALT of 80. Vital signs reviewed. Blood pressure 102/67, heart rate 74, respiratory rate 16, temp 98.0 F, and SpO2 of 91% on room air. CODE STATUS: Full code DVT prophylaxis: Heparin Anticipated discharge date: Pending clinical course Anticipated discharge place: Home Patient was seen independently by Nurse Pracitioner. This document was prepared using [employer] dictation software. Please allow for errors in wagon driver salesperson, while rare they do occur. Brad Vazquez NP rendered care for this patient independently, reviewed the findings and plan as documented in the note above and agree with plan. I did not physically speak with or examine the patient on this date. Objective - Vital Signs Vital signs: Vital Signs Temp 98.0 F 09/05/24 08:00 Pulse 74 09/05/24 08:00 Resp 16 09/05/24 08:00 BP 102/67 09/05/24 08:00 Pulse Ox 91 L 09/05/24 08:00 FiO2 Intake & Output 09/04/24 09/05/24 09/05/24 18:59 06:59 18:59 Intake Total 500 100 Output Total 100 Balance 500 0 Weight 77.111 kg 77.111 kg Intake: IV 500 100 Output: Urine 100 Estimated Blood Loss 0 Other: Voiding Method Toilet # Voids 2 - Labs CBC & Chem 7: 09/05/24 03:33 09/05/24 03:33 Labs: Abnormal Lab Results - Last 24 Hours (Table) 09/04/24 09/04/24 09/04/24 Range/Units 13:49 14:18 14:18 WBC 15.8 H (3.8-10.6) k/uL Immature Gran # (0.00-0.04) X 10*3/uL Neutrophils # 14.5 H (1.3-7.7) k/uL Lymphocytes # 0.5 L (1.0-4.8) k/uL Sodium 135 L (137-145) mmol/L BUN 22 H (7-17) mg/dL Creatinine 1.09 H (0.52-1.04) mg/dL Glucose 133 H (74-99) mg/dL Calcium (8.4-10.2) mg/dL Total Bilirubin 1.9 H (0.2-1.3) mg/dL AST 135 H (14-36) U/L ALT 91 H (4-34) U/L Total Protein (6.3-8.2) g/dL Albumin (3.5-5.0) g/dL Urine Appearance Turbid H (Clear) Urine Protein 1+ H (Negative) Urine Blood Small H (Negative) Urine Nitrite Positive H (Negative) Ur Leukocyte Esterase Large H (Negative) Urine RBC 19 H (0-5) /hpf Urine WBC >182 H (0-5) /hpf Urine WBC Clumps Many H (None) /hpf Urine Bacteria Moderate H (None) /hpf Urine Mucus Few H (None) /hpf 09/05/24 09/05/24 Range/Units 03:33 03:33 WBC 12.74 H (3.8-10.6) k/uL Immature Gran # 0.06 H (0.00-0.04) X 10*3/uL Neutrophils # 10.31 H (1.3-7.7) k/uL Lymphocytes # (1.0-4.8) k/uL Sodium 135 L (137-145) mmol/L BUN 25 H (7-17) mg/dL Creatinine 1.07 H (0.52-1.04) mg/dL Glucose 108 H (74-99) mg/dL Calcium 8.3 L (8.4-10.2) mg/dL Total Bilirubin 1.4 H (0.2-1.3) mg/dL AST 83 H (14-36) U/L ALT 80 H (4-34) U/L Total Protein 5.6 L (6.3-8.2) g/dL Albumin 3.1 L (3.5-5.0) g/dL Urine Appearance (Clear) Urine Protein (Negative) Urine Blood (Negative) Urine Nitrite (Negative) Ur Leukocyte Esterase (Negative) Urine RBC (0-5) /hpf Urine WBC (0-5) /hpf Urine WBC Clumps (None) /hpf Urine Bacteria (None) /hpf Urine Mucus (None) /hpf
[2024-09-06] MEDS: PANTOPRAZOLE 40 MG TABLET PO SCH (08:40)
[2024-09-06] MEDS: amLODIPine 5 MG TAB PO SCH (08:40)
[2024-09-06] MEDS: MORPHINE SULFATE 4 MG/ML SYRINGE IV PRN (09:34)
[2024-09-06 10:47] LABS: HCT 38.8 % (37.2-46.3); HGB 12.6 g/dL (12.0-15.0); MCH 31.2 pg (27.0-32.0); MCHC 32.5 g/dL (32.0-37.0); Mean Platelet Volume 10.5 FL (9.5-12.2); NRBC Per 100 WBC 0 X 10*3/uL (0.00-0.01); Platelet Count 153 X 10*3/uL (140-440); RBC 4.04 X 10*6/uL (4.10-5.20); RDW 12.4 % (11.5-14.5)
[2024-09-06 11:00] LABS: Blood Urea Nitrogen 18.3 mg/dL (9.0-27.0); Carbon Dioxide 22.7 mmol/L (21.6-31.8); Chloride 106 mmol/L (96-109); Glucose 108 mg/dL (70-110); Potassium 3.8 mmol/L (3.5-5.5); Sodium 138 mmol/L (135-145)
[2024-09-06 11:01] LABS: ALT 65 U/L (8-44); AST 58 U/L (13-35); Albumin 3.2 g/dL (3.8-4.9); Albumin/Globulin Ratio 1.45 Ratio (1.60-3.17); Alkaline Phosphatase 111 U/L (41-126); Calcium 8.4 mg/dL (8.7-10.3); Globulin 2.2 g/dL (1.6-3.3); Total Bilirubin 0.5 mg/dL (0.3-1.2); Total Protein 5.4 g/dL (6.2-8.2)
--- NOTE | 2024-09-06 12:43 | P.PN ---
Subjective Progress Note Date: 09/06/24 Principal diagnosis: Acute pyelonephritis complicated by left distal ureteral calculus The patient presented with a febrile UTI. CT scan showed left hydronephrosis due to a UVJ calculus. She underwent cystoscopy with left ureteral stent insertion in September 04, 2024 and has been afebrile since that time. Blood cultures show E. coli, presumed to be of urinary source. She states that her pain is much improved. She continues to experience mild nausea without vomiting. She reports epigastric pain which might be the result of hyperemesis. Objective - Vital Signs Vital signs: Vital Signs Temp 97.5 F L 09/06/24 01:52 Pulse 65 09/06/24 01:52 Resp 15 09/06/24 01:52 BP 132/64 09/06/24 01:52 Pulse Ox 97 09/06/24 01:52 FiO2 Intake & Output 09/05/24 09/06/24 09/06/24 18:59 06:59 18:59 Other: Voiding Method Toilet # Voids 3 4 - Constitutional General appearance: Present: average body habitus, cooperative, no acute distress - Gastrointestinal Gastrointestinal Comment(s): Soft, non-distended. Mild upper abdominal tenderness to palpation, no guarding or rebound. - Psychiatric Psychiatric: Present: A&O x's 3 - Labs CBC & Chem 7: 09/06/24 02:58 09/06/24 02:58 Labs: Abnormal Lab Results - Last 24 Hours (Table) 09/05/24 Range/Units 03:33 WBC 12.74 H (4.50-10.00) X 10*3/uL Immature Gran # 0.06 H (0.00-0.04) X 10*3/uL Neutrophils # 10.31 H (1.80-7.70) X 10*3/uL Microbiology - Last 24 Hours (Table) 09/04/24 15:47 Blood Culture Gram Stain - Preliminary Blood Blood Culture - Preliminary Escherichia coli Molecular ID Assessment and Plan (1) Hydronephrosis with renal and ureteral calculous obstruction Current Visit: No Status: Acute Code(s): N13.2 - HYDRONEPHROSIS WITH RENAL AND URETERAL CALCULOUS OBSTRUCTION SNOMED Code(s): 098277239 (2) Acute pyelonephritis Current Visit: No Status: Acute Code(s): N10 - ACUTE PYELONEPHRITIS SNOMED Code(s): 84294364 Plan: The patient has undergone successful stent placement. She has been found to have E. coli in the blood, likely of urinary source. She will continue to receive ceftriaxone, pending the final culture results. Arrangements will be made for her to undergo cystoscopy, left ureteral stent removal, and ureteroscopic removal of the left ureteral calculus in 2 to 4 weeks.
--- NOTE | 2024-09-06 17:23 | P.PN ---
Subjective Progress Note Date: 09/06/24 Hospital course: Patient is a pleasant 73-year-old female with a past medical history of hypertension, hypothyroidism, GERD, obstructive sleep apnea CPAP dependent nightly, and osteoarthritis. She presented to the emergency department on 09/04/2024 with a chief complaint of left flank pain x 2 days accompanied by nausea, vomiting, chills, diarrhea and urinary frequency. Upon arrival to our facility, patient underwent evaluation in the emergency department. Vital signs upon arrival show blood pressure 108/74, heart rate 110, respiratory rate 18, temp 100.3 F, and SpO2 of 94% on room air. Labs completed and reviewed. CBC showing leukocytosis with WBC count of 15.8. BMP showing slightly elevated renal function with BUN of 22, creatinine 1.09, GFR 51. Lactic acid was 1.2. Liver profile showing elevated total bili of 1.9, AST of 135, and ALT of 91. Urinalysis showing nitrite positive UTI. CT abdomen and pelvis without contrast was completed revealing moderate to marked left hydronephrosis and hydroureter secondary to a 7 to 8 mm obstructing calculus in the left UVC and a large hiatal hernia. Patient was started on IV antibiotics with Zosyn secondary to previous urine culture sensitivity report completed 05/21/2024. Admitted under our serv ices with consultation to urology. Patient was taken for cystoscopy with left ureteral stent placement by Dr. Goyal shortly after admission. Physical exam: Patient seen and fully evaluated at bedside. She continues to report mild to moderate left flank pain but states has improved since undergoing cystoscopy with stent placement. She denies any episodes of nausea or vomiting. Tolerating oral intake and denies any difficulties with urination. Vital signs reviewed and stable. General: Nontoxic, no distress and appears stated age. Derm: Skin warm and dry, normal coloration for ethnicity. Head: Atraumatic, normocephalic and symmetric. Eyes: EOM's intact, no lid lag, and anicteric sclera Mouth: no lip lesions, mucus membranes moist Cardiovascular: regular rate and rhythm with normal S1S2, no murmur, positive posterior tibial pulses bilaterally, and cap refill < 2 seconds. Lungs: Respirations even, regular, and unlabored on room air. Lungs CTA bilaterally, no rhonchi, no rales, no wheezing, and no accessory muscle usage. Abdominal: soft, nontender to palpation, no guarding, no appreciable organomegaly Ext: ROM intact. No gross muscle atrophy, no edema, no contractures Neuro: Speech clear, face symmetrical and CN II-XII grossly intact with no noted focal neuro deficits Psych: Alert and oriented to person, place, time, and situation. Appropriate and pleasant affect. Assessment and Plan of Care: Acute pyelonephritis E. coli bacteremia Obstructing ureteral calculus in the left UVC Hydronephrosis with hydroureter E. coli bacteremia Sepsis upon admission, secondary to above -Urology following took patient for cystoscopy with ureteral stent placement on 09/04/2024. -Continue IV antibiotics with Rocephin 2 g every 24 hours -Preliminary urine culture positive for gram-negative bacilli -Blood cultures showing positive for E. coli with no reported resistance. Discussed with pharmacist antibiotics downgraded from Zosyn to Rocephin. -Symptomatic care and pain management. Zofran 4 mg IVP every 8 hours as needed for nausea or vomiting. Tylenol 650 mg every 6 hours as needed for mild pain/fever and morphine 4 mg IVP every 4 hours as needed for moderate to severe pain. -Close monitoring of I's and O's. Hypertension -Monitor vital signs and continue daily medication regimen with amlodipine 5 mg daily. Hypothyroidism -Continue levothyroxine 150 mcg daily. GERD -GI prophylaxis with Protonix 40 mg daily. Obstructive sleep apnea -Continue CPAP nightly and while napping. Data and imaging reviewed: Morning labs reviewed. CBC unremarkable. BMP normal findings. Blood glucose 108. Magnesium 2.0. Liver profile remains elevated but improving with AST of 58, ALT of 65, and alkaline phosphatase of 122. Hyperbilirubinemia resolved with total bili of 0.5 this morning. Vital signs reviewed. Blood pressure 102/67, heart rate 74, respiratory rate 16, temp 98.0 F, and SpO2 of 91% on room air. Preliminary urine culture positive for gram-negative bacilli Blood cultures showing positive for E. coli with no reported resistance. CODE STATUS: Full code DVT prophylaxis: Heparin Anticipated discharge date: Pending clinical course Anticipated discharge place: Home Patient was seen independently by Nurse Pracitioner. This document was prepared using [employer] dictation software. Please allow for errors in negative stripper, while rare they do occur. Brad Vazquez NP rendered care for this patient independently, reviewed the findings and plan as documented in the note above and agree with plan. I did not physically speak with or examine the patient on this date. Objective - Vital Signs Vital signs: Vital Signs Temp 98.4 F 09/06/24 07:34 Pulse 74 09/06/24 07:34 Resp 18 09/06/24 07:34 BP 121/74 09/06/24 07:34 Pulse Ox 92 L 09/06/24 07:34 FiO2 Intake & Output 09/05/24 09/06/24 09/06/24 18:59 06:59 18:59 Other: Voiding Method Toilet # Voids 3 4 - Labs CBC & Chem 7: 09/06/24 02:58 09/06/24 02:58 Labs: Microbiology - Last 24 Hours (Table) 09/04/24 15:47 Blood Culture Gram Stain - Preliminary Blood Blood Culture - Preliminary Escherichia coli Molecular ID
[2024-09-07 10:03] LABS: HCT 36.4 % (37.2-46.3); HGB 11.9 g/dL (12.0-15.0); MCH 31.2 pg (27.0-32.0); MCHC 32.7 g/dL (32.0-37.0); MCV 95.5 FL (80.0-97.0); Mean Platelet Volume 10.4 FL (9.5-12.2); NRBC Per 100 WBC 0 X 10*3/uL (0.00-0.01); Platelet Count 171 X 10*3/uL (140-440); RBC 3.81 X 10*6/uL (4.10-5.20); RDW 12.5 % (11.5-14.5); WBC 5.87 X 10*3/uL (4.50-10.00)
[2024-09-07 10:30] LABS: ALT 43 U/L (8-44); AST 30 U/L (13-35); Alkaline Phosphatase 101 U/L (41-126); Blood Urea Nitrogen 18.9 mg/dL (9.0-27.0); Calcium 8.3 mg/dL (8.7-10.3); Carbon Dioxide 24.8 mmol/L (21.6-31.8); Chloride 106 mmol/L (96-109); Glucose 109 mg/dL (70-110); Potassium 4.1 mmol/L (3.5-5.5); Sodium 140 mmol/L (135-145); Total Bilirubin 0.2 mg/dL (0.3-1.2)
[2024-09-07] MEDS ORDERED: HYDROcodone/APAP 5-325MG 1 EACH TAB PO PRN (10:35)
[2024-09-07] MEDS ORDERED: Acetaminophen-Codeine 300-30mg TAB PO PRN (10:37)
--- NOTE | 2024-09-07 11:03 | P.PN ---
Subjective Progress Note Date: 09/07/24 Principal diagnosis: Acute pyelonephritis complicated by left distal ureteral calculus The patient presented with a febrile UTI. CT scan showed left hydronephrosis due to a UVJ calculus. She underwent cystoscopy with left ureteral stent insertion in September 04, 2024 and has been afebrile since that time. Blood cultures show E. coli, presumed to be of urinary source. She states that her pain and nausea are much improved, and that overall she feels quite well. Objective - Vital Signs Vital signs: Vital Signs Temp 97.9 F 09/07/24 08:30 Pulse 77 09/07/24 08:30 Resp 16 09/07/24 08:30 BP 101/62 09/07/24 08:30 Pulse Ox 94 L 09/07/24 08:30 FiO2 Intake & Output 09/06/24 09/07/24 09/07/24 18:59 06:59 18:59 Other: Voiding Method Toilet Toilet # Voids 2 1 1 # Bowel Movements 1 - Constitutional General appearance: Present: average body habitus, cooperative, no acute distress - Psychiatric Psychiatric: Present: A&O x's 3 - Labs CBC & Chem 7: 09/07/24 04:24 09/07/24 04:24 Labs: Abnormal Lab Results - Last 24 Hours (Table) 09/06/24 09/06/24 Range/Units 02:58 02:58 RBC 4.04 L (4.10-5.20) X 10*6/uL Calcium 8.4 L (8.7-10.3) mg/dL AST 58 H (13-35) U/L ALT 65 H (8-44) U/L Total Protein 5.4 L (6.2-8.2) g/dL Albumin 3.2 L (3.8-4.9) g/dL Albumin/Globulin Ratio 1.45 L (1.60-3.17) Ratio Microbiology - Last 24 Hours (Table) 09/04/24 15:47 Blood Culture Gram Stain - Final Blood Blood Culture - Final Escherichia coli Molecular ID 09/04/24 21:46 Urine Culture - Preliminary Urine,Voided Gram Neg Bacilli Assessment and Plan (1) Hydronephrosis with renal and ureteral calculous obstruction Current Visit: No Status: Acute Code(s): N13.2 - HYDRONEPHROSIS WITH RENAL AND URETERAL CALCULOUS OBSTRUCTION SNOMED Code(s): 111786275 (2) Acute pyelonephritis Current Visit: No Status: Acute Code(s): N10 - ACUTE PYELONEPHRITIS SNOMED Code(s): 46319661 Plan: The patient has undergone successful stent placement. She remains afebrile, and her WBC count has normalized. She has been found to have E. coli in the blood, likely of urinary source. This strain of E. coli is sensitive to all antibiotics tested. The urine culture shows gram-negative bacilli which will likely be found to be E. coli. From a urologic standpoint, the patient may be discharged home on oral antibiotics and arrangements will be made for her to undergo cystoscopy, left ureteral stent removal, and ureteroscopic removal of the left ureteral calculus in 2 to 4 weeks.
[2024-09-07 14:24] VITALS: BP 109/69; PULSE 79; RESP 18; TEMP 98.1
--- NOTE | 2024-09-07 15:15 | P.DS ---
Providers Date of admission: 09/04/24 17:39 Expected date of discharge: 09/07/24 Attending physician: Wilfrido Ramirez Consults: 09/04/24 17:35 Consult Physician Urgent Consulting Provider: Manuel Goyal Consult Reason/Comments: left ureteral stone with hydronephrosis, acute uti Do you want consulting provider notified?: Already Contacted [facility] Course: Discharge Diagnosis: Acute pyelonephritis E. coli bacteremia Obstructing ureteral calculus in the left UVC Hydronephrosis with hydroureter Sepsis upon admission, secondary to above Hypertension Hypothyroidism GERD Obstructive sleep apnea Hospital Course: Patient is a pleasant 73-year-old female with a past medical history of hypert ension, hypothyroidism, GERD, obstructive sleep apnea CPAP dependent nightly, and osteoarthritis. She presented to the emergency department on 09/04/2024 with a chief complaint of left flank pain x 2 days accompanied by nausea, vomiting, chills, diarrhea and urinary frequency. Upon arrival to our facility, patient underwent evaluation in the emergency department. Vital signs upon arrival show blood pressure 108/74, heart rate 110, respiratory rate 18, temp 100.3 F, and SpO2 of 94% on room air. Labs completed and reviewed. CBC showing leukocytosis with WBC count of 15.8. BMP showing slightly elevated renal function with BUN of 22, creatinine 1.09, GFR 51. Lactic acid was 1.2. Liver profile showing elevated total bili of 1.9, AST of 135, and ALT of 91. Urinalysis showing nitrite positive UTI. CT abdomen and pelvis without contrast was completed revealing moderate to marked left hydronephrosis and hydroureter secondary to a 7 to 8 mm obstructing calculus in the left UVC and a large hiatal hernia. Patient was started on IV antibiotics with Zosyn secondary to previous urine culture sensitivity report completed 05/21/2024. Admitted under our services with consultation to urology. Patient was taken for cystoscopy with left ureteral stent placement by Dr. Goyal shortly after admission. Blood culture showing positive for E. coli with no reported resistance. Urine culture also resulting positive for E. coli with no resistance. Discussed in detail with urologist, patient to be discharged home on Keflex 500 mg every 6 hours x 14 days. Patient to receive extended course of antibiotics secondary to need to stay on antibiotics until stent is removed. Patient to follow-up outpatient with PCP in 1 to 2 days and with urologist in 1 week. Physical exam: Vital signs reviewed and stable. General: Nontoxic, no distress and appears stated age. Derm: Skin warm and dry, normal coloration for ethnicity. Head: Atraumatic, normocephalic and symmetric. Eyes: EOM's intact, no lid lag, and anicteric sclera Mouth: no lip lesions, mucus membranes moist Cardiovascular: regular rate and rhythm with normal S1S2, no murmur, positive posterior tibial pulses bilaterally, and cap refill < 2 seconds. Lungs: Respirations even, regular, and unlabored on room air. Lungs CTA bilaterally, no rhonchi, no rales, no wheezing, and no accessory muscle usage. Abdominal: soft, nontender to palpation, no guarding, no appreciable organomegaly Ext: ROM intact. No gross muscle atrophy, no edema, no contractures Neuro: Speech clear, face symmetrical and CN II-XII grossly intact with no noted focal neuro deficits Psych: Alert and oriented to person, place, time, and situation. Appropriate and pleasant affect. A total of 33 minutes of time were spent preparing this complex discharge summary. Pt was discharged on 09/07/2024 at 3:14 PM. Patient was seen independently by Nurse Practitioner. This document was prepared using [employer] dictation software. Please allow for errors in educational manager while rare they do occur. Brad Vazquez NP rendered care for this patient independently, reviewed the findings and plan as documented in the note above. I did not physically speak with or examine the patient on this date. Patient Condition at Discharge: Stable Plan - Discharge Summary Discharge Rx Participant: No New Discharge Prescriptions: New Acetaminophen-Codeine 300-30mg [Tylenol w/codeine #3] 1 tab PO Q4H PRN 3 Days #18 tablet PRN Reason: Pain Cephalexin [Keflex] 500 mg PO Q6HR 14 Days #56 cap Continue Levothyroxine Sodium 150 mcg PO DAILY ALPRAZolam [Xanax] 0.5 mg PO TID PRN PRN Reason: Anxiety Zolpidem Tartrate [Ambien Cr] 6.25 mg PO HS Phentermine HCl [Adipex-P] 37.5 mg PO DAILY amLODIPine [Norvasc] 5 mg PO DAILY Naratriptan HCl [Amerge] 2.5 mg PO BID PRN MDD 5 mg PRN Reason: Migraine Headache Discharge Medication List ALPRAZolam [Xanax] 0.5 mg PO TID PRN 10/07/22 [History] Levothyroxine Sodium 150 mcg PO DAILY 10/07/22 [History] Naratriptan HCl [Amerge] 2.5 mg PO BID PRN MDD 5 mg 10/07/22 [History] amLODIPine [Norvasc] 5 mg PO DAILY 10/07/22 [History] Phentermine HCl [Adipex-P] 37.5 mg PO DAILY 09/04/24 [History] Zolpidem Tartrate [Ambien Cr] 6.25 mg PO HS 09/04/24 [History] Acetaminophen-Codeine 300-30mg [Tylenol w/codeine #3] 1 tab PO Q4H PRN 3 Days #18 tablet 09/07/24 [Rx] Cephalexin [Keflex] 500 mg PO Q6HR 14 Days #56 cap 09/07/24 [Rx] Follow up Appointment(s)/Referral(s): Manuel Goyal MD [STAFF PHYSICIAN] - 1 Week Luiza Freitas MD [Primary Care Provider] - 1-2 days Patient Instructions/Handouts: Kidney Infection (DC), Ureteral Stent Placement (DC) Discharge Disposition: HOME SELF-CARE
== END 2024-09-07 17:13 | disposition home or self-care (01) | DRG 854 ==
LOC: EC 13:16 → SUPCPDRO 13:16 → 4SSUR 17:39
PROVIDERS: ADMIT Student in an Organized Health Care Education/Training Program; ATTEND Student in an Organized Health Care Education/Training Program
PROC: 0T778DZ Dilation of Left Ureter with Intraluminal Device, Via Natural or Artificial Opening Endoscopic (ICD-10-PCS; principal; 2024-09-04 18:15)
DX: A41.51 Sepsis due to Escherichia coli [E. coli] (principal); N13.6 Pyonephrosis; I10 Essential (primary) hypertension; E03.9 Hypothyroidism, unspecified; D64.9 Anemia, unspecified; N17.9 Acute kidney failure, unspecified; G47.33 Obstructive sleep apnea (adult) (pediatric); K44.9 Diaphragmatic hernia without obstruction or gangrene; G43.909 Migraine, unspecified, not intractable, without status migrainosus; F41.0 Panic disorder [episodic paroxysmal anxiety]; E80.6 Other disorders of bilirubin metabolism; R74.8 Abnormal levels of other serum enzymes; Z79.890 Hormone replacement therapy; Z79.899 Other long term (current) drug therapy; Z87.442 Personal history of urinary calculi; Z86.19 Personal history of other infectious and parasitic diseases; Z87.891 Personal history of nicotine dependence; Z96.653 Presence of artificial knee joint, bilateral; Z85.828 Personal history of other malignant neoplasm of skin; Z88.6 Allergy status to analgesic agent; Z88.1 Allergy status to other antibiotic agents; Z88.5 Allergy status to narcotic agent
CPT/HCPCS: 36415; 74176; 76705; 80053; 81001; 83605; 83735; 85025; 85027; 87040; 87077; 87086; 87186; 88108; 96361; 96365; 96366; 96368; 96375; 99291

== ENCOUNTER 2024-09-19 11:31 | Day surgery (SDC) | payer MEDICARE, OTHER ==
--- NOTE | 2024-09-18 17:20 | P.GSHP ---
History of Present Illness H&P Date: 09/18/24 Chief Complaint: Left renal colic The patient is a 73-year-old white female with a history of calcium oxalate urolithiasis. She required hospitalization in 2022 for management of a UTI complicated by an obstructing right UPJ calculus. She was admitted September 04, 2024 with a 2-day history of left flank pain associated with nausea and vomiting. When evaluated in the ER, she was found to be febrile. CT scan showed moderate to severe left hydroureteronephrosis due to a 7 to 8 mm left UVJ calculus. Lab studies show leukocytosis and urinalysis was consistent with infection. She was treated with IV antibiotics and underwent left ureteral stent placement. Urine and blood cultures showed E. coli. She now comes for cystoscopy, left ureteral stent removal, and ureteroscopic removal of the left ureteral calculus. - Genitourinary (Female) Genitourinary: Reports as per HPI Past Medical History Past Medical History: Cancer, GERD/Reflux, Hypertension, Osteoarthritis (OA), Sleep Apnea/CPAP/BIPAP, Thyroid Disorder Additional Past Medical History / Comment(s): migraines,diverticulitis, urgency urinating and with with bowel movements after eatting, hiatal hernia, no cpap used, anemia, hx skin cancer. kidney stones History of Any Multi-Drug Resistant Organisms: ESBL Date of last positivie culture/infection: 05/21/24 MDRO Source:: urine Past Surgical History: Cholecystectomy, Joint Replacement, Orthopedic Surgery, Tonsillectomy, Tubal Ligation Additional Past Surgical History / Comment(s): deon knee replacements, rt foot surgery, x3 back surgery x 2, rt knee arthroscopy, Past Anesthesia/Blood Transfusion Reactions: Motion Sickness Additional Past Anesthesia/Blood Transfusion Reaction / Comment(s): hx car sick when younger, Smoking Status: Never smoker - Past Family History Mother Family Medical History: No Reported History Medications and Allergies Home Medications Medication Instructions Recorded Confirmed Type ALPRAZolam [Xanax] 0.5 mg PO TID PRN 10/07/22 09/16/24 History Levothyroxine Sodium 150 mcg PO DAILY 10/07/22 09/16/24 History Naratriptan HCl [Amerge] 2.5 mg PO BID PRN MDD 5 mg 10/07/22 09/16/24 History amLODIPine [Norvasc] 5 mg PO DAILY 10/07/22 09/16/24 History Phentermine HCl [Adipex-P] 37.5 mg PO DAILY 09/04/24 09/16/24 History Zolpidem Tartrate [Ambien Cr] 6.25 mg PO HS 09/04/24 09/16/24 History Acetaminophen-Codeine 300-30mg 1 tab PO Q4H PRN 3 Days #18 tablet 09/07/24 09/16/24 Rx [Tylenol w/codeine #3] Cephalexin [Keflex] 500 mg PO Q6HR 14 Days #56 cap 09/07/24 09/16/24 Rx Allergies Allergy/AdvReac Type Severity Reaction Status Date / Time ciprofloxacin [From Cipro] Allergy Dyspnea Verified 09/04/24 16:55 ciprofloxacin HCl Allergy Dyspnea Verified 09/04/24 16:55 [From Cipro] hydrocodone [From [place]] AdvReac Nausea & Verified 09/04/24 16:55 Vomiting & Diarrhea milk AdvReac Nausea & Verified 09/04/24 16:55 Vomiting & Diarrhea Surgical - Exam - General well developed, well nourished, moderate distress - Respiratory normal respiratory effort - Abdomen Abdomen: soft, non tender, no guarding, no rigid, no rebound - Genitourinary normal external genitalia - Psychiatric oriented to time, oriented to person, oriented to place, speech is normal, me erma intact Results - Imaging CT scan - abdomen: report reviewed, image reviewed Assessment and Plan (1) Calculus of ureter Status: Acute Code(s): N20.1 - CALCULUS OF URETER SNOMED Code(s): 79559700 Plan: Cystoscopy, left ureteral stent removal, left ureteroscopy with Holmium laser lithotripsy and possible stone basketing. The procedure has been reviewed in detail with the patient. She has been made aware of potential risks, which include anesthesia, bleeding, infection, ureteral injury, and inability to successfully remove the calculus.
[~2024-09-19 11:31] MED LIST changes: -LACTATED RINGERS 1,000 ML IV SCH; -LIDOCAINE 1% 20 ML VIAL (10MG/ML) FOR IV START INTRADERMA PRN; -LIDOCAINE 1% INJ 10MG/ML (20 ML MDV) ONE; -MIDAZOLAM 2 MG/2 ML VIAL ONE; -PROPOFOL 10 MG/ML 20 ML VIAL IV ONE; +fentaNYL (PF) 50 MCG/ML 2 ML AMP IV PRN
--- NOTE | 2024-09-19 11:50 | XR ---
EXAMINATION TYPE: XR KUB DATE OF EXAM: 09/19/2024 COMPARISON: CT abdomen and pelvis 09/04/2024, KUB radiograph 11/03/2022 HISTORY: Kidney stones TECHNIQUE: Single supine KUB image of the abdomen is obtained FINDINGS: Small bowel demonstrates no evidence for dilatation or air fluid levels. Gas and fecal material is seen in non-distended colon. No convincing evidence for pneumoperitoneum. Cholecystectomy clips in the right upper quadrant. Left ureteral stent. No distinct renal or ureteral calculi. A few left-sided pelvic phleboliths corre sponding to prior CT. The osseous structures are intact. Dextrocurvature of the lumbar spine. IMPRESSION: Left ureteral stent demonstrated. No distinct renal or ureteral calculi. [facility], , 09/19/2024 11:47 AM
[2024-09-19] MEDS: IV FLUID CONTINUATION 1,000 ML IV ONE ×2 (12:45→16:10)
[2024-09-19] MEDS: LACTATED RINGERS 1,000 ML IV SCH (12:45)
[2024-09-19] MEDS: LIDOCAINE 1% (10MG/ML) FOR IV START INTRADERMA STA (12:45)
[2024-09-19] MEDS: ONDANSETRON 4 MG/2 ML VIAL IVP ONE (12:50)
[2024-09-19] MEDS: DEXAMETHASONE SOD PHOSPHATE 4 MG/ML 1 ML VIAL IV ONE (12:50)
[2024-09-19] MEDS: MIDAZOLAM 2 MG/2 ML VIAL IV ONE (13:20)
[2024-09-19] MEDS ORDERED: MIDAZOLAM 2 MG/2 ML VIAL ONE (15:23)
[2024-09-19] MEDS ORDERED: SUCCINYLCHOLINE CHLORIDE 200 MG/10 ML VIAL IV ONE (15:23)
[2024-09-19] MEDS ORDERED: LIDOCAINE 1% INJ 10MG/ML (20 ML MDV) ONE (15:23)
[2024-09-19] MEDS ORDERED: PROPOFOL 10 MG/ML 20 ML VIAL IV ONE (15:23)
[2024-09-19] MEDS ORDERED: fentaNYL (PF) 50 MCG/ML 2 ML AMP ONE (15:23)
--- NOTE | 2024-09-19 16:06 | P.OP ---
Date of Procedure: 09/19/24 Preoperative Diagnosis: Left ureteral calculus Postoperative Diagnosis: Same Procedure(s) Performed: Cystoscopy, left ureteral stent removal, left ureteroscopy, ureteroscopic removal of left ureteral calculus Anesthesia: ELLYA Surgeon: Manuel Goyal Estimated Blood Loss (ml): 0 IV fluids (ml): 500 Pathology: other (Left ureteral calculus fragment, sent for chemical analysis) Condition: stable Disposition: PACU Indications for Procedure: The patient is a 73-year-old white female with a history of calcium oxalate urolithiasis. She required hospitalization in 2022 for management of a UTI complicated by an obstructing right UPJ calculus. She was admitted September 04, 2024 with a 2-day history of left flank pain associated with nausea and vomiting. When evaluated in the ER, she was found to be febrile. CT scan showed moderate to severe left hydroureteronephrosis due to a 7 to 8 mm left UVJ calculus. Lab studies show leukocytosis and urinalysis was consistent with infection. She was treated with IV antibiotics and underwent left ureteral maribell nt placement. Urine and blood cultures showed E. coli. She now comes for cystoscopy, left ureteral stent removal, and ureteroscopic removal of the left ureteral calculus. Operative Findings: Left distal ureteral calculus at UVJ, successfully removed. Description of Procedure: The patient was taken to the operating room and placed in the dorsolithotomy position, with legs supported in Dennis stirrups. The external genitalia was prepped and draped sterilely. The 30 lens was used to introduce the 21-Sy[place] Thorpe cystoscopic sheath through the urethra and into the bladder under direct vision. The bladder was examined in its entirety. No abnormalities were seen. Grasping forceps were used to grasp the distal end of the left ureteral stent, which was removed along with the cystoscope. The Thorpe semirigid ureteroscope was passed into the bladder. The left ureteral orifice was cannulated, and the ureteroscope was slowly advanced up to the calculus. The ureteroscope was removed as a laser fiber was prepared, and the calculus passed distally into the bladder. Ureteroscopy was repeated, as the ureteroscope was advanced up to the UPJ, and no calculi were seen within the ureter. The ureteroscope was removed, and the cystoscope was passed into the bladder. The calculus was removed through the cystoscope, and sent for chemical analysis. The bladder was emptied and the cystoscope removed. The patient tolerated the procedure well and was taken to the recovery room in stable condition. LENA SAWANT Report: Procedure Acuity: Elective Stone Size and Location: 7 mm, left UVJ Ureteral Dilation: No Ureteral Access Sheath Used: No Stone Sent for Analysis: Yes All Stones/Fragments Were Removed: Yes Complications: No Preoperative Antibiotics Given: Yes Stent Placed: No
[2024-09-19 16:20] VITALS: TEMP 97.4
[2024-09-19 16:46] VITALS: RESP 16
[2024-09-19 17:07] VITALS: BP 121/76; PULSE 65
== END 2024-09-19 17:30 | disposition home or self-care (01) ==
LOC: OR 11:31
PROVIDERS: ATTEND Urology
DX: N13.2 Hydronephrosis with renal and ureteral calculous obstruction (principal); I10 Essential (primary) hypertension; G47.33 Obstructive sleep apnea (adult) (pediatric); E07.9 Disorder of thyroid, unspecified; K21.9 Gastro-esophageal reflux disease without esophagitis; Z79.890 Hormone replacement therapy; Z79.899 Other long term (current) drug therapy; Z87.440 Personal history of urinary (tract) infections; Z88.1 Allergy status to other antibiotic agents; Z88.5 Allergy status to narcotic agent
CPT/HCPCS: 52320; 82365; 74018; J2250; J1100; J0690; J2405

== ENCOUNTER → 2024-11-07 | Outpatient (CLI) | payer MEDICARE, OTHER ==
--- NOTE | 2024-11-07 14:41 | US ---
EXAMINATION TYPE: US kidneys/renal and bladder DATE OF EXAM: 11/07/2024 COMPARISON: XR 09/19/24 US 09/05/2024 US 02/14/2023 CLINICAL INDICATION: Female, 73 years old with history of N13.2 HYDRONEPHROSIS WITH RENAL AND URETERA L CALCU; Recent renal stone with sepsis, and E-coli in blood. Hx HTN and Incontinence; Patient not ab le to keep water down for test TECHNIQUE: Grayscale imaging of the bilateral kidneys and urinary bladder: FINDINGS: EXAM MEASUREMENTS: Right Kidney: 9.9 x 6.6 x 3.9 cm Left Kidney: 9.9 x 4.6 x 4.8 cm Post Void Residual Volume: NA mL Right Kidney: Cystic structures seen within mid kidney, ? Cysts vs prominent renal pelvis Left Kidney: wnl, no evidence for hydronephrosis, mass or renal calculus. Simple cyst noted lower po le Bladder: Not fully distended; WNL as visualized Bilateral Jets seen: Not able to assess There is no evidence for hydronephrosis at this point in time. No nephrolithiasis is seen. Corticome dullary differentiation is maintained bilaterally. No solid renal masses are identified. Simple cyst is identified within the lower pole the left kidney. Right renal sinus cyst versus prominent renal p natalie. No distinct perinephric fluid collections. The urinary bladder is anechoic but not fully diste nded which limits evaluation. Within normal limits as visualized. IMPRESSION: 1. No hydronephrosis or nephrolithiasis. 2. Simple appearing left renal cyst. 3. Renal sinus cyst versus prominent renal pelvis. [facility], , 11/07/2024 2:39 PM
== END | disposition home or self-care (01) ==
LOC: RADUSWWP 13:59
PROVIDERS: ATTEND Urology
DX: N13.2 Hydronephrosis with renal and ureteral calculous obstruction (principal); N28.1 Cyst of kidney, acquired
CPT/HCPCS: 76770

== ENCOUNTER → 2024-12-26 | Outpatient (CLI) | payer MEDICARE, OTHER ==
--- NOTE | 2024-12-26 09:35 | MR ---
EXAMINATION TYPE: MR cervical spine wo con DATE OF EXAM: 12/26/2024 9:21 AM COMPARISON: None. CLINICAL INDICATION: Female, 74 years old with history of M50.30 DDD cervical spine; PHH, Neck pain i nto deon upper extremities, headaches TECHNIQUE: Multi planar, multi sequence imaging was performed utilizing: T1-weighted, T2-weighted, an d turbo inversion recovery imaging of the cervical spine. IV Contrast: mL (None, if empty) FINDINGS: Alignment: The cervical vertebral bodies have preserved heights. Alignment is within normal limits gi gopal patient positioning. Bones: Scattered osteophytes and disc space narrowing. Multilevel degenerative disc disease is noted and most pronounced at the C5-C7 vertebral levels. Cord: The spinal cord is unremarkable with regards to their signal intensity and morphology. Discs: Intervertebral disc signal is maintained. C2-C3: No significant disc pathology. The spinal canal is patent. No neural foraminal stenosis. C3-C4: A disc osteophyte complex is present with mild spinal canal stenosis. Bilateral facet and unc overtebral joint arthropathy are present with moderate left and mild right neural foraminal stenosis. C4-C5: No significant disc pathology. The spinal canal is patent. Bilateral facet and uncovertebral joint arthropathy are present with mild bilateral neural foraminal stenosis. C5-C6: No significant disc pathology. The spinal canal is patent. No neural foraminal stenosis. C6-C7: No significant disc pathology. The spinal canal is patent. Bilateral facet and uncovertebral joint arthropathy are present with moderate to severe left and moderate right neural foraminal stenos is. C7-T1: No significant disc pathology. The spinal canal is patent. No neural foraminal stenosis. Other: None. IMPRESSION: 1. No evidence for disc herniation or significant spinal canal stenosis. 2. Moderate disc degeneration with associated osteoarthritic changes. No thrombosis worse at C6-C7 wi th moderate to severe left and moderate right. [facility], , 12/26/2024 9:33 AM
--- NOTE | 2024-12-26 09:50 | US ---
EXAMINATION TYPE: US thyroid st tissue head/neck DATE OF EXAM: 12/26/2024 COMPARISON: NONE CLINICAL INDICATION: Female, 74 years old with history of E03.9 HYPOTHYROIDISM; Patient on synthroid. Hx hypothyroidism. TECHNIQUE: Grayscale and color Doppler imaging of the thyroid gland. FINDINGS: GLAND SIZE: Right Lobe: Very small amount of probable thyroid tissue measured: 1.3 x 0.6 x 0.5 cm Overall Parenchyma: heterogeneous Left Lobe: Unable to visualize tissue Isthmus Thickness: 0.19 cm NODULES RIGHT: # of nodules measured on right: 0 LEFT: # of nodules measured on left: 0 ISTHMUS: # of nodules measured in the isthmus: 0 Bilateral neck scanned, no evidence of lymphadenopathy. IMPRESSION: Atrophic appearance of the thyroid gland on the right with nonvisualization of the left gland. No [place] picious masses or organizing fluid collections. No lymphadenopathy. [facility], , 12/26/2024 9:48 AM
== END | disposition home or self-care (01) ==
LOC: RADMRIMAIN 08:06
PROVIDERS: ATTEND Family Medicine
DX: M50.30 Other cervical disc degeneration, unspecified cervical region (principal); E03.9 Hypothyroidism, unspecified; E03.4 Atrophy of thyroid (acquired)
CPT/HCPCS: 72141; 76536